=== PATIENT | male | born 1945 | race Caucasian/White ===

== ENCOUNTER → 2016-10-07 | Outpatient (CLI) | payer OTHER, MEDICARE ==
[2016-10-14 21:28] LABS: V-ZOSTER CULT ISOLATED
== END | disposition home or self-care (01) ==
LOC: C.LABSPEC 13:20
PROVIDERS: ATTEND Dermatology
DX: B02.9 Zoster without complications (principal)

== ENCOUNTER → 2017-01-20 | Outpatient (CLI) | payer OTHER, MEDICARE | END | disposition home or self-care (01) | LOC: C.PATHSPEC 16:47 | PROVIDERS: ATTEND Dermatology | DX: C44.319 Basal cell carcinoma of skin of other parts of face (principal); L82.1 Other seborrheic keratosis ==

== ENCOUNTER → 2017-02-02 | Outpatient (CLI) | payer OTHER, MEDICARE | END | disposition home or self-care (01) | LOC: C.PATHSPEC 11:13 | PROVIDERS: ATTEND Plastic Surgery | DX: C44.310 Basal cell carcinoma of skin of unspecified parts of face (principal) ==

== ENCOUNTER → 2017-03-26 | Outpatient (CLI) | payer OTHER, MEDICARE | END | disposition home or self-care (01) | LOC: C.LABSPEC 12:33 | PROVIDERS: ATTEND Dermatology | DX: A49.01 Methicillin susceptible Staphylococcus aureus infection, unspecified site (principal); L98.9 Disorder of the skin and subcutaneous tissue, unspecified ==

== ENCOUNTER → 2017-04-15 | Outpatient (CLI) | payer OTHER, MEDICARE ==
[2017-04-15 15:12] LABS: BLOOD UREA NITROGEN 21 mg/dl (7-18); BUN/CREATININE RATIO 22.7 (10-20); CARBON DIOXIDE 30 mmol/L (21-32); CHLORIDE 103 mmol/L (98-107); CREATININE 0.91 mg/dl (0.60-1.40); GLUCOSE 133 mg/dl (70-99); POTASSIUM 4.2 mmol/L (3.5-5.1); SODIUM 139 mmol/L (136-145)
== END | disposition home or self-care (01) ==
LOC: C.LAB1850 13:20
PROVIDERS: ATTEND Internal Medicine Endocrinology, Diabetes & Metabolism
DX: E11.9 Type 2 diabetes mellitus without complications (principal)

== ENCOUNTER → 2017-06-01 | Outpatient (CLI) | payer OTHER, MEDICARE ==
[2017-06-01 15:18] LABS: ALT/SGPT 47 U/L (12-78); BLOOD UREA NITROGEN 20 mg/dl (7-18); BUN/CREATININE RATIO 20.4 (10-20); CALCIUM 9.3 mg/dl (8.5-10.1); CARBON DIOXIDE 28 mmol/L (21-32); CHLORIDE 106 mmol/L (98-107); CHOLESTEROL 134 mg/dl (0-200); CREATININE 0.96 mg/dl (0.60-1.40); GLUCOSE 102 mg/dl (70-99); POTASSIUM 4.6 mmol/L (3.5-5.1); SODIUM 140 mmol/L (136-145); TRIGLYCERIDES 225 mg/dl (0-150); VERY LOW DENSITY LIPOPROT CALC 45 mg/dl
[2017-06-01 15:21] LABS: ALB/GLOB RATIO 1.3 (0.9-2); ALKALINE PHOSPHATASE 69 U/L (45-117); AST/SGOT 30 U/L (15-37); CHOLESTEROL/HDL RATIO 3.8; HDL CHOLESTEROL 35 mg/dl; LDL CHOLESTEROL CALCULATED 54 mg/dl
== END | disposition home or self-care (01) ==
LOC: C.LAB1850 13:03
PROVIDERS: ATTEND Internal Medicine Endocrinology, Diabetes & Metabolism
DX: E11.9 Type 2 diabetes mellitus without complications (principal); K76.0 Fatty (change of) liver, not elsewhere classified

== ENCOUNTER → 2017-07-06 | Outpatient (CLI) | payer OTHER, MEDICARE | END | disposition home or self-care (01) | LOC: C.PATHSPEC 17:37 | PROVIDERS: ATTEND Dermatology | DX: L82.1 Other seborrheic keratosis (principal) ==

== ENCOUNTER 2021-05-27 14:38 | Observation (INO) ==
[2021-05-27] MEDS ORDERED: SODIUM CHLORIDE 0.9% 500 ML IV STA (16:30)
[2021-05-27] MEDS ORDERED: ASPIRIN CHEW 324 MG PO STA (16:30)
--- NOTE | 2021-05-27 16:37 | Emergency Department Note ---
Impression & Plan Complete left bundle branch block (LBBB), SOB (shortness of breath), Abnormal EKG, Thrombocytopenia ED Provider Note NAME: NAHUM BONDS AGE: 76 SEX: M : 1945 ARRIVES VIA: Walk-In INFORMANT: Patient, ED PROVIDER(S): Anton Bailon DO CHIEF COMPLAINT: Shortness of breath HPI: The patient is a 76-year-old male who presented to the emergency department for shortness of breath. The patient has a history of CLL. He also has a history of COPD. He states that he has been having some shortness of breath recently. He thinks it may be more than what he has had before with his COPD. The patient has CLL and is currently being treated for this. He did have a minor reaction to his CLL medications recently. He did receive steroids. He thought he was doing better and even had another dose of the medication for CLL and did not have a reaction. He is unsure if this is related. He went to see his photography manager today for a follow-up appointment for his usual visit. At that time he had an EKG done in the office which was felt to be change compared to his previous. The patient is unsure what the changes are. He denies having any chest pain. He denies having any nausea or vomiting. He denies having any fevers or recent traveling. He denies having swelling in the legs. He was referred to the emergency department for evaluation and possible admission. ROS: See above HPI for pertinent positives & negatives. A total of 10 systems reviewed and were otherwise negative. PAST MEDICAL HISTORY: See Below PAST SURGICAL HISTORY: See Below FAMILY HISTORY: See Below SOCIAL HISTORY: See Below HOME MEDICATIONS: See Below ALLERGIES: See Below VITALS: See Below PHYSICAL EXAMINATION: GENERAL: Patient is awake alert in no acute distress patient is resting comfortably and showing no signs of anxiety EYES: The conjunctivae are clear. The pupils are round and reactive. EARS, NOSE, MOUTH AND THROAT: The nose is without any evidence of any deformity. NECK: The neck is nontender and supple. RESPIRATORY: Normal respiratory effort is noted there is no evidence of wheezing rhonchi or rales CARDIOVASCULAR: Regular rate and rhythm noted there no murmurs rubs or gallops normal S1 normal S2. GASTROINTESTINAL: The abdomen is soft. Abdomen is nontender. MUSCULOSKELETAL/EXTREMITIES: There is no evidence of gross deformity full range of motion is noted in the hips and shoulders. SKIN: There is no obvious evidence of any rash. There are no petechiae, pallor or cyanosis noted. NEUROLOGIC: Patient is awake alert and oriented x3. MEDICAL DECISION MAKING: The patient is a 76-year-old male who presented to the emergency department for an evaluation of shortness of breath with exertion. The patient was seen by his primary photography manager group today and was sent to the emergency department because of abnormal EKG. The patient was felt to be a good candidate for inpatient work-up and further evaluation of his bundle branch block. I discusse d the patient's laboratory and radiographic studies with him. He was treated with aspirin in the emergency department. I did discuss his case with the [facility] photography manager. They were aware that the patient was coming to the emergency department. I also discussed his case with the on-call [facility] group. They have agreed to evaluate the patient in the emergency department for further management and disposition. Triage Nursing notes reviewed. Prior medical records reviewed Vital Signs: reviewed and remarkable for tachycardia Differential diagnosis: Reactive airway disease, pneumonia, pneumothorax, COPD, CHF, infections, cardiac ischemia, pulmonary embolism, musculoskeletal, gastrointestinal, as well as other pathologies. ER treatment provided: See below Diagnostics interpreted by me: ECG: EKG was obtained in the emergency department. My interpretation is normal sinus rhythm at 72 bpm. Left bundle branch block pattern was noted. There were some concordant T waves noted in the low lateral leads. No previous tracing was available. Cardiac Monitoring: An order was placed for continuous cardiac monitoring. The monitor shows a rate of 124 bpm sinus tachycardia with rhythm. Laboratory studies: As stated above and show below. Imaging studies: See below Consultation(s): I discussed this case with Dr. Garcia who is on-call for the [facility] group. They will evaluate the patient in the emergency department. Past Med/Surg History Medical History (Updated 05/27/21 @ 22:53 by Anton Bailon DO) Adrenal nodule ASCVD (arteriosclerotic cardiovascular disease) Benign prostatic hyperplasia with urinary obstruction BPH with obstruction/lower urinary tract symptoms Chronic 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 CLL (chronic lymphocytic leukemia) Diabetes type 2, controlled Dyslipidemia Fatty liver Gastroparesis History of thyroid cancer Hypothyroidism, postablative Surgical History (Updated 05/27/21 @ 20:14 by NERY Aguilar) History of cataract surgery History of cholecystectomy History of thyroidectomy Hx of parathyroidectomy S/P AAA (abdominal aortic aneurysm) repair Family History Mother Diabetes Myocardial infarction Father Stroke Myocardial infarction Sister Alzheimer disease Breast cancer Denies family history of Ovarian cancer Prostate cancer Colorectal cancer Social History Smoking Status: Current some day smoker Tobacco Type: Cigarettes Age Started Using Tobacco: 16; Second Hand Exposure: No; Do You Dip or Chew Tobacco: No; Tobacco Cessation Education Requested by Patient: No Hx Alcohol Use: No Hx Substance Use: No Preferred Language: Yoruba Communication Ability: Effective Visual Impairment: Limited Hearing Ability: Normal Foil Spooler Required: No Beliefs That Will Affect Care: None marital status: Single Current Living Situation: Alone current occupational status: retired Other Information That Helps Us Care for You: Yes Feels Safe at Home: Yes Safety Concerns: Feels Safe At This Time Childhood Exposure to Second-Hand Smoke: Yes Dental Care, Regularly: Yes Physical Activity Frequency: Does not Exercise Seatbelt Use: always Sunscreen Use: Yes Assistive Devices: Cane, Denture - Upper and Glasses Allergies Allergies Allergy/AdvReac Type Severity Reaction Status Date / Time diphenhydramine Allergy Severe Hypotension,Sweating, Unverified 05/27/21 18:50 [From Benadryl] Shaking adhesive tape Allergy Unknown Unknown Verified 05/27/21 21:22 acetaminophen [From Tylenol] Allergy Unknown Unverified 05/27/21 18:50 clavulanic acid Allergy Unknown Unverified 05/27/21 18:50 [From Augmentin] desflurane Allergy Unknown Unverified 05/27/21 18:50 enflurane Allergy Unknown Unverified 05/27/21 18:50 ether Allergy Unknown Unverified 05/27/21 18:50 halothane Allergy Unknown Unverified 05/27/21 18:50 hydrocortisone Allergy Unknown Unverified 05/27/21 18:50 isoflurane Allergy Unknown Unverified 05/27/21 18:50 methoxyflurane Allergy Unknown Unverified 05/27/21 18:50 nickel Allergy Unknown Unverified 05/27/21 18:50 Penicillins Allergy Unknown Unverified 05/27/21 18:50 sevoflurane Allergy Unknown Unverified 05/27/21 18:50 succinylcholine Allergy Unknown Unverified 05/27/21 18:50 varenicline [From Chantix] Allergy Unknown Unverified 05/27/21 18:50 Home Meds Home Medications Medication Instructions Recorded Confirmed aspirin 81 mg tablet,delayed 81 mg PO DAILY tab 03/23/19 05/27/21 release blood sugar diagnostic (Prodigy No #10 ea 03/23/19 04/24/21 Coding) blood-glucose meter (Prodigy #1 ea 03/23/19 04/24/21 Autocode Monitor Syst) hydrocortisone valerate 0.2 % 1 appln TOP BID PRN 03/23/19 05/27/21 topical cream lancets 28 gauge (Observe Medical Lancets) #25 ea 03/23/19 04/24/21 pen needle, diabetic 32 gauge x #10 ea 03/23/19 04/24/21 5/32" (BD Ultra-Fine Elida Pen Needle) sildenafil 100 mg tablet (Viagra) 100 mg PO DAILY PRN #10 tab 03/23/19 05/27/21 miconazole nitrate 2 % topical 1 appln TOP DAILY PRN 04/15/19 05/27/21 powder (Zeasorb AF) adapalene 0.3 % topical gel 1 applic TOPICAL DAILY PRN gm 04/24/21 05/27/21 betamethasone, augmented 0.05 % 1 applic TOPICAL BID PRN #1 gm 04/24/21 05/27/21 topical ointment cyanocobalamin (vitamin B-12) 500 1,000 mcg SL DAILY tab 04/24/21 05/27/21 mcg disintegrating tablet,sublingual ezetimibe 10 mg tablet (Zetia) 10 mg PO DAILY tab 04/24/21 05/27/21 insulin degludec 100 unit/mL (3 25 unit SQ HS ml 04/24/21 05/27/21 mL) subcutaneous pen (Tresiba FlexTouch U-100 insulin) ketoconazole 2 % topical cream 1 applic TOPICAL BID PRN #1 gm 04/24/21 05/27/21 metoclopramide HCl 5 mg tablet 5 mg PO PM tab 04/24/21 05/27/21 mupirocin 2 % topical ointment 1 applic TOPICAL TID PRN #1 gm 04/24/21 05/27/21 nystatin-triamcinolone 100,000 1 applic TOPICAL BID PRN #1 gm 04/24/21 05/27/21 unit/gram-0.1 % topical ointment allopurinol 300 mg tablet 300 mg PO QAM 05/27/21 05/27/21 cholecalciferol (vitamin D3) 10 10 mcg PO QAM 05/27/21 05/27/21 mcg (400 unit) tablet (Vitamin D3) empagliflozin 10 mg tablet 10 mg PO QAM 05/27/21 05/27/21 (Jardiance) krill 500 mg-omega-3 150 mg-dha 45 1 cap PO QAM 05/27/21 05/27/21 mg-epa 75 [id number] capsule (krill oil) levothyroxine 112 mcg tablet 112 mcg PO HS 05/27/21 05/27/21 (Synthroid) lutein 20 mg tablet 20 mg PO QAM 05/27/21 05/27/21 metoprolol succinate 50 mg 50 mg PO QAM 05/27/21 05/27/21 tablet,extended release 24 hr (Toprol XL) milk thistle 500 mg capsule 1,000 mg PO QAM 05/27/21 05/27/21 omeprazole 20 mg capsule,delayed 20 mg PO QAM 05/27/21 05/27/21 release sulindac 200 mg tablet 100 mg PO UD 05/27/21 05/27/21 triamcinolone acetonide 0.025 % 1 applic TOPICAL DAILY PRN 05/27/21 05/27/21 topical cream Previous Rx's Medication Instructions Recorded clonazepam 0.5 mg tablet 0.5 mg PO TID PRN #60 tab 10/13/19 fluticasone propionate 50 2 sprays INTRANASAL DAILY #1 btl 10/13/19 mcg/actuation nasal spray,suspension FreeStyle Santa 2 Sensor (flash #2 ea NS 04/09/21 glucose sensor) oxycodone 30 mg tablet 30 mg PO Q4H PRN #180 tab 05/09/21 Results & Data (ED) Vital Signs Vital Signs - 24 hr 05/27/21 14:45 05/27/21 17:02 05/27/21 17:05 Temperature 36.8 C Temperature Source Temporal Artery Scan Pulse Rate 76 77 Pulse Rate [Apical] Pulse Rate from SpO2 Sensor Pulse Rhythm [Apical] Pulse Strength [Apical] Respiratory Rate 18 22 Respiratory Effort / Characteristics Non-Labored Spontaneous Respiratory Depth Normal Respiratory Pattern Blood Pressure 101/61 Blood Pressure [Right Arm] Blood Pressure Mean 74 Blood Pressure Mean [Right Arm] Blood Pressure Position Sitting Blood Pressure Position [Right Arm] Pulse Oximetry 95 Oxygen Delivery Method Room Air Room Air Room Air Sepsis Recent Fever Within 48 Hours No Sepsis New/Unexplained Change in Mental Status N/A Sepsis Action Taken by Nursing No Action Required 05/27/21 17:10 05/27/21 17:20 05/27/21 17:30 Temperature Temperature Source Pulse Rate 101 H 62 61 Pulse Rate [Apical] Pulse Rate from SpO2 Sensor 68 65 60 Pulse Rhythm [Apical] Pulse Strength [Apical] Respiratory Rate 29 H 17 19 Respiratory Effort / Characteristics Respiratory Depth Respiratory Pattern Blood Pressure Blood Pressure [Right Arm] Blood Pressure Mean Blood Pressure Mean [Right Arm] Blood Pressure Position Blood Pressure Position [Right Arm] Pulse Oximetry 94 95 95 Oxygen Delivery Method Room Air Room Air Room Air Sepsis Recent Fever Within 48 Hours Sepsis New/Unexplained Change in Mental Status Sepsis Action Taken by Nursing 05/27/21 17:40 05/27/21 17:50 05/27/21 18:00 Temperature Temperature Source Pulse Rate 62 127 H 130 H Pulse Rate [Apical] Pulse Rate from SpO2 Sensor 62 64 64 Pulse Rhythm [Apical] Pulse Strength [Apical] Respiratory Rate 22 19 19 Respiratory Effort / Characteristics Respiratory Depth Respiratory Pattern Blood Pressure Blood Pressure [Right Arm] Blood Pressure Mean Blood Pressure Mean [Right Arm] Blood Pressure Position Blood Pressure Position [Right Arm] Pulse Oximetry 94 94 95 Oxygen Delivery Method Room Air Room Air Room Air Sepsis Recent Fever Within 48 Hours Sepsis New/Unexplained Change in Mental Status Sepsis Action Taken by Nursing 05/27/21 18:10 05/27/21 18:20 05/27/21 18:30 Temperature Temperature Source Pulse Rate 72 63 82 Pulse Rate [Apical] Pulse Rate from SpO2 Sensor 67 63 Pulse Rhythm [Apical] Pulse Strength [Apical] Respiratory Rate 23 21 25 H Respiratory Effort / Characteristics Respiratory Depth Respiratory Pattern Blood Pressure Blood Pressure [Right Arm] Blood Pressure Mean Blood Pressure Mean [Right Arm] Blood Pressure Position Blood Pressure Position [Right Arm] Pulse Oximetry 91 94 Oxygen Delivery Method Room Air Room Air Room Air Sepsis Recent Fever Within 48 Hours Sepsis New/Unexplained Change in Mental Status Sepsis Action Taken by Nursing 05/27/21 18:40 05/27/21 18:50 05/27/21 19:00 Temperature Temperature Source Pulse Rate 63 62 95 H Pulse Rate [Apical] Pulse Rate from SpO2 Sensor 64 62 68 Pulse Rhythm [Apical] Pulse Strength [Apical] Respiratory Rate 18 21 22 Respiratory Effort / Characteristics Respiratory Depth Respiratory Pattern Blood Pressure Blood Pressure [Right Arm] Blood Pressure Mean Blood Pressure Mean [Right Arm] Blood Pressure Position Blood Pressure Position [Right Arm] Pulse Oximetry 96 95 95 Oxygen Delivery Method Room Air Room Air Room Air Sepsis Recent Fever Within 48 Hours Sepsis New/Unexplained Change in Mental Status Sepsis Action Taken by Nursing 05/27/21 19:31 05/27/21 19:46 05/27/21 20:00 Temperature 36.5 C Temperature Source Oral Pulse Rate 62 65 Pulse Rate [Apical] 72 Pulse Rate from SpO2 Sensor 61 65 Pulse Rhythm [Apical] Regular Pulse Strength [Apical] Normal Respiratory Rate 21 20 19 Respiratory Effort / Characteristics Non-Labored Spontaneous Respiratory Depth Normal Respiratory Pattern Regular Blood Pressure 129/68 124/68 Blood Pressure [Right Arm] 129/68 Blood Pressure Mean 88 86 Blood Pressure Mean [Right Arm] 88 Blood Pressure Position Blood Pressure Position [Right Arm] Lying Pulse Oximetry 95 95 95 Oxygen Delivery Method Room Air Room Air Room Air Sepsis Recent Fever Within 48 Hours Sepsis New/Unexplained Change in Mental Status Sepsis Action Taken by Nursing 05/27/21 20:30 05/27/21 21:00 05/27/21 21:34 Temperature Temperature Source Pulse Rate 121 H 124 H Pulse Rate [Apical] Pulse Rate from SpO2 Sensor 60 62 70 Pulse Rhythm [Apical] Pulse Strength [Apical] Respiratory Rate 21 22 Respiratory Effort / Characteristics Respiratory Depth Respiratory Pattern Blood Pressure 119/67 138/64 Blood Pressure [Right Arm] Blood Pressure Mean 84 88 Blood Pressure Mean [Right Arm] Blood Pressure Position Blood Pressure Position [Right Arm] Pulse Oximetry 95 95 95 Oxygen Delivery Method Room Air Room Air Room Air Sepsis Recent Fever Within 48 Hours Sepsis New/Unexplained Change in Mental Status Sepsis Action Taken by Nursing 05/27/21 21:41 05/27/21 21:50 05/27/21 22:00 Temperature Temperature Source Pulse Rate Pulse Rate [Apical] Pulse Rate from SpO2 Sensor 80 61 57 L Pulse Rhythm [Apical] Pulse Strength [Apical] Respiratory Rate Respiratory Effort / Characteristics Respiratory Depth Respiratory Pattern Blood Pressure Blood Pressure [Right Arm] Blood Pressure Mean Blood Pressure Mean [Right Arm] Blood Pressure Position Blood Pressure Position [Right Arm] Pulse Oximetry 96 95 Oxygen Delivery Method Room Air Room Air Room Air Sepsis Recent Fever Within 48 Hours Sepsis New/Unexplained Change in Mental Status Sepsis Action Taken by Nursing 05/27/21 22:10 05/27/21 22:20 Temperature Temperature Source Pulse Rate Pulse Rate [Apical] Pulse Rate from SpO2 Sensor 60 57 L Pulse Rhythm [Apical] Pulse Strength [Apical] Respiratory Rate Respiratory Effort / Characteristics Respiratory Depth Respiratory Pattern Blood Pressure Blood Pressure [Right Arm] Blood Pressure Mean Blood Pressure Mean [Right Arm] Blood Pressure Position Blood Pressure Position [Right Arm] Pulse Oximetry 94 94 Oxygen Delivery Method Room Air Room Air Sepsis Recent Fever Within 48 Hours Sepsis New/Unexplained Change in Mental Status Sepsis Action Taken by Retirement Medications Current Medication List: was personally reviewed by me Laboratory Data Attestation: I reviewed the patient's lab results. Result diagrams: 05/27/21 16:47 05/27/21 16:47 Lab Results 05/27/21 05/27/21 05/27/21 Range/Units 16:47 16:47 16:47 WBC 13.65 H (4.8-10.8) K/uL RBC 4.77 (4.7-6.1) M/uL Hgb 14.3 (14.0-18.0) g/dL Hct 42.2 (42-52) % MCV 88.5 (80-100) fL MCH 30.0 (25-34) pg MCHC 33.9 (32-36) g/dL RDW Std Deviation 50.2 H (36.4-46.3) fL RDW Coeff of Ct 15.5 H (11.5-14.5) % Plt Count 77 L (130-400) K/uL MPV 10.4 (7.4-10.4) fL Immature Gran % (Auto) 0.2 % Neut % (Auto) 62.4 % Lymph % (Auto) 31.3 % [place] % (Auto) 5.9 % Eos % (Auto) 0.1 % Baso % (Auto) 0.1 % Neut # (Auto) 8.52 H (1.4-6.5) K/uL Lymph # (Auto) 4.27 H (1.2-3.4) K/uL [place] # (Auto) 0.80 H (0.11-0.59) K/uL Eos # (Auto) 0.02 (0-0.5) K/uL Baso # (Auto) 0.01 (0-0.2) K/uL Immature Gran # (Auto) 0.03 H (0.00-0.02) K/uL Platelet Estimate Decreased L (Normal) PT 11.6 (9.0-12.0) Seconds INR 1.2 H (0.9-1.1) APTT 24.4 (21.0-31.0) Seconds PTT Ratio 0.9 Sodium 138 (136-145) mmol/L Potassium 4.6 (3.5-5.1) mmol/L Chloride 106 (98-107) mmol/L Carbon Dioxide 20 L (21-32) mmol/L Anion Gap 12.0 H (3-11) BUN 38 H (7-18) mg/dl Creatinine 1.19 (0.6-1.4) mg/dl Est Cr Clr Drug Dosing 51.2 ml/min Est GFR ( Amer) 67.4 ml/min Est GFR (Non-Af Amer) 58.2 ml/min BUN/Creatinine Ratio 32.3 H (10-20) Glucose 246 H (70-99) mg/dl Calcium 8.7 (8.5-10.1) mg/dl Total Bilirubin 0.4 (0.2-1) mg/dl AST 29 (15-37) U/L ALT 24 (12-78) U/L Alkaline Phosphatase 116 (45-117) U/L Troponin I < 0.015 (0-0.045) ng/ml Total Protein 6.8 (6.4-8.2) gm/dl Albumin 3.1 L (3.4-5.0) gm/dl Globulin 3.7 (2.5-4.0) gm/dl Albumin/Globulin Ratio 0.8 L (0.9-2) Lipase 55 L (73-393) U/L Specimen Hemolysis COVID-19 Eval Order SARS-CoV-2 (PCR) (Negative) 05/27/21 05/27/21 Range/Units 17:05 17:05 WBC (4.8-10.8) K/uL RBC (4.7-6.1) M/uL Hgb (14.0-18.0) g/dL Hct (42-52) % MCV (80-100) fL MCH (25-34) pg MCHC (32-36) g/dL RDW Std Deviation (36.4-46.3) fL RDW Coeff of Ct (11.5-14.5) % Plt Count (130-400) K/uL MPV (7.4-10.4) fL Immature Gran % (Auto) % Neut % (Auto) % Lymph % (Auto) % [place] % (Auto) % Eos % (Auto) % Baso % (Auto) % Neut # (Auto) (1.4-6.5) K/uL Lymph # (Auto) (1.2-3.4) K/uL [place] # (Auto) (0.11-0.59) K/uL Eos # (Auto) (0-0.5) K/uL Baso # (Auto) (0-0.2) K/uL Immature Gran # (Auto) (0.00-0.02) K/uL Platelet Estimate (Normal) PT (9.0-12.0) Seconds INR (0.9-1.1) APTT (21.0-31.0) Seconds PTT Ratio Sodium (136-145) mmol/L Potassium (3.5-5.1) mmol/L Chloride (98-107) mmol/L Carbon Dioxide (21-32) mmol/L Anion Gap (3-11) BUN (7-18) mg/dl Creatinine (0.6-1.4) mg/dl Est Cr Clr Drug Dosing ml/min Est GFR ( Amer) ml/min Est GFR (Non-Af Amer) ml/min BUN/Creatinine Ratio (10-20) Glucose (70-99) mg/dl Calcium (8.5-10.1) mg/dl Total Bilirubin (0.2-1) mg/dl AST (15-37) U/L ALT (12-78) U/L Alkaline Phosphatase (45-117) U/L Troponin I (0-0.045) ng/ml Total Protein (6.4-8.2) gm/dl Albumin (3.4-5.0) gm/dl Globulin (2.5-4.0) gm/dl Albumin/Globulin Ratio (0.9-2) Lipase (73-393) U/L Specimen Hemolysis COVID-19 Eval Order Covid19 at [facility] SARS-CoV-2 (PCR) NEGATIVE (Negative) Administered Medications Discontinued Medications Aspirin (Aspirin Chew 324 Mg) 324 mg PO NOW STA Stop: 05/27/21 16:31 Last Admin: 05/27/21 16:58 Dose: 324 mg Documented by: [id number] Sodium Chloride (Nss) 500 mls @ 999 mls/hr IV .Q31M STA Stop: 05/27/21 17:00 Last Infusion: 05/27/21 17:31 Dose: 0 mls/hr Documented by: [id number] Admin: 05/27/21 16:59 Dose: 999 mls/hr Documented by: [id number] Imaging Data Radiologist's Impression: Chest X-Ray 05/27/21 16:30 XR chest 1V portable INDICATION: Atypical chest pain. TECHNIQUE: Single frontal radiograph of the chest was obtained. Comparison: None available at the time of this dictation. FINDINGS: No lines and tubes are seen. The cardiomediastinal silhouette is normal. There is elevation of the right hemidiaphragm with atelectasis is seen. Possible layering right pleural effusion. No left pleural effusion or pneumothorax. IMPRESSION: Possible layering right pleural effusion. Otherwise no acute abnormality. ACT 112: Negative or not required by law. Electronically signed by: Jerzy Girard M.D. 05/27/2021 4:56 PM Discharge Plan Visit Data Chief Complaint: Cardiac Assessment Stated Complaint: SOB,REF BY DR ZHAO ED Provider: Anton Bailon Discharge Problem: Complete left bundle branch block (LBBB), SOB (shortness of breath), Abnormal EKG, Thrombocytopenia Patient Disposition: Admitted As Inpatient Forms Stand Alone Forms: [facility] [employer] Prescriptions Prescriptions: No Action (DME) FreeStyle Santa 2 Sensor Kit See Rx Instructions miscellaneous .MEDSUPPLY Qty: 2 RF: 11 oxycodone 30 mg tablet 30 mg PO Q4H PRN (Reason: pain) Qty: 180 RF: 0 aspirin 81 mg tablet,delayed release (DR/EC) 81 mg PO DAILY RF: 0 sildenafil [Viagra] 100 mg tablet 100 mg PO DAILY PRN (Reason: Erectile Dysfunction) Qty: 10 RF: 0 adapalene 0.3 % gel 1 applic topical DAILY PRN (Reason: .) RF: 0 betamethasone, augmented 0.05 % ointment 1 applic topical BID PRN (Reason: .) Qty: 1 RF: 0 cyanocobalamin (vitamin B-12) 500 mcg tablet,disintegrating 1,000 mcg SL DAILY RF: 0 ketoconazole 2 % cream 1 applic topical BID PRN (Reason: .) Qty: 1 RF: 0 metoclopramide HCl 5 mg tablet 5 mg PO PM RF: 0 mupirocin 2 % ointment 1 applic topical TID PRN (Reason: .) Qty: 1 RF: 0 nystatin-triamcinolone 100,000-0.1 unit/gram-% ointment 1 applic topical BID PRN (Reason: .) Qty: 1 RF: 0 (DME) blood-glucose meter [Observe Medical Autocode Monitor Syst] misc See Dose Instructions .ROUTE .MEDSUPPLY Qty: 1 RF: 0 (DME) lancets [Observe Medical Lancets] 28 gauge misc See Dose Instructions .ROUTE .MEDSUPPLY Qty: 25 RF: 0 (DME) Prodigy No Coding strip See Dose Instructions .ROUTE .MEDSUPPLY Qty: 10 RF: 0 (DME) pen needle, diabetic [BD Ultra-Fine Elida Pen Needle] 32 gauge x 5/32" needle See Dose Instructions .ROUTE .MEDSUPPLY Qty: 10 RF: 0 hydrocortisone valerate 0.2 % cream 1 appln TOP BID PRN (Reason: .) RF: 0 Zeasorb AF 2 % powder 1 appln TOP DAILY PRN (Reason: INGUINAL FOLDS) RF: 0 Tresiba FlexTouch U-100 100 unit/mL (3 mL) insulin pen 25 unit SQ HS RF: 0 fluticasone propionate 50 mcg/actuation spray,suspension 2 sprays intranasal DAILY Qty: 1 RF: 11 clonazepam 0.5 mg tablet 0.5 mg PO TID PRN (Reason: anxiety) Qty: 60 RF: 0 ezetimibe [Zetia] 10 mg tablet 10 mg PO DAILY RF: 0 metoprolol succinate [Toprol XL] 50 mg tablet extended release 24 hr 50 mg PO QAM RF: 0 milk thistle 500 mg Capsule 1,000 mg PO QAM RF: 0 allopurinol 300 mg tablet 300 mg PO QAM RF: 0 krill oil [id number] mg Capsule 1 cap PO QAM RF: 0 Jardiance 10 mg tablet 10 mg PO QAM RF: 0 triamcinolone acetonide 0.025 % Cream 1 applic TOPICAL DAILY PRN (Reason: .) RF: 0 omeprazole 20 mg capsule,delayed release(DR/EC) 20 mg PO QAM RF: 0 cholecalciferol (vitamin D3) [Vitamin D3] 10 mcg (400 unit) Tablet 10 mcg PO QAM RF: 0 sulindac 200 mg Tablet 100 mg PO UD RF: 0 lutein 20 mg Tablet 20 mg PO QAM RF: 0 levothyroxine [Synthroid] 112 mcg tablet 112 mcg PO HS RF: 0 Referrals Referrals: Dione Steve MD [Primary Care Provider] -
--- NOTE | 2021-05-27 16:58 | XRay Report ---
XR chest 1V portable INDICATION: Atypical chest pain. TECHNIQUE: Single frontal radiograph of the chest was obtained. Comparison: None available at the time of this dictation. FINDINGS: No lines and tubes are seen. The cardiomediastinal silhouette is normal. There is elevation of the ri ght hemidiaphragm with atelectasis is seen. Possible layering right pleural effusion. No left pleural effusion or pneumothorax. IMPRESSION: Possible layering right pleural effusion. Otherwise no acute abnormality. ACT 112: Negative or not required by law. Electronically signed by: Jerzy Girard M.D. 05/27/2021 4:56 PM
[2021-05-27 17:15] LABS: INR 1.2 (0.9-1.1); Partial Thromboplastin Ratio 0.9; Partial Thromboplastin Time 24.4 Seconds (21.0-31.0); Prothrombin Time 11.6 Seconds (9.0-12.0)
[2021-05-27 17:23] LABS: Alanine Aminotransferase 24 U/L (12-78); Albumin Level 3.1 gm/dl (3.4-5.0); Aspartate Aminotransferase 29 U/L (15-37); BUN Creatinine Ratio 32.3 (10-20); Blood Urea Nitrogen 38 mg/dl (7-18); Calcium 8.7 mg/dl (8.5-10.1); Carbon Dioxide 20 mmol/L (21-32); Chloride 106 mmol/L (98-107); Creatinine Clr Calc Pharmacy 51.2 ml/min; Est GFR (African American) 67.4 ml/min; Est GFR (Non-African American) 58.2 ml/min; Glucose 246 mg/dl (70-99); Lipase 55 U/L (73-393); Potassium 4.6 mmol/L (3.5-5.1); Sodium 138 mmol/L (136-145)
[2021-05-27 17:24] LABS: Hematocrit (blood only) 42.2 % (42-52); Hemoglobin 14.3 g/dL (14.0-18.0); Mean Corpuscular Hgb Conc 33.9 g/dL (32-36); Mean Corpuscular Volume 88.5 fL (80-100); Mean Platelet Volume 10.4 fL (7.4-10.4); Platelet Count 77 K/uL (130-400); RDW Coefficient of Variation 15.5 % (11.5-14.5); RDW Standard Deviation 50.2 fL (36.4-46.3); Red Blood Count 4.77 M/uL (4.7-6.1); White Blood Count 13.65 K/uL (4.8-10.8)
[2021-05-27 17:25] LABS: Basophils # (auto) 0.01 K/uL (0-0.2); Basophils % (auto) 0.1 %; Eosinophils # (auto) 0.02 K/uL (0-0.5); Eosinophils % (auto) 0.1 %; Immature Granulocytes # (auto) 0.03 K/uL (0.00-0.02); Immature Granulocytes % (auto) 0.2 %; Lymphocytes # (auto) 4.27 K/uL (1.2-3.4); Lymphocytes % (auto) 31.3 %; Monocytes % (auto) 5.9 %; Neutrophils # (auto) 8.52 K/uL (1.4-6.5); Neutrophils % (auto) 62.4 %; Platelet Estimate Decreased (Normal)
[2021-05-27 17:29] LABS: Albumin Globulin Ratio 0.8 (0.9-2); Alkaline Phosphatase 116 U/L (45-117); Bilirubin,Total 0.4 mg/dl (0.2-1); Globulin 3.7 gm/dl (2.5-4.0); Total Protein 6.8 gm/dl (6.4-8.2); Troponin I < 0.015 ng/ml (0-0.045)
--- NOTE | 2021-05-27 19:58 | History & Physical Report ---
Date of Service May 27, 2021 Assessment & Plan (1) LBBB (left bundle branch block): Plan: Reportedly new onset from cardiology office- follows with [facility] - Troponin I negative x1- trend - ECG here shows LBBB - ECHO in morning to evaluate for RWMA (2) CLL (chronic lymphocytic leukemia): Plan: CLL B type- on Gazyva - Recently started - Norbertomelanie diagnosed in 2018 - Electrolytes normal following treatment - Noted platelet count of 77- follow with VTE prophylaxis of Lovenox - consistent with Gazyva therapy (3) Diabetes type 2, controlled: Plan: Hold oral agents - Continue basal insulin equivalent of Tresiba 25 units at night - sliding scale aspart insulin during inpatient stay - CF 20; 0 carb coverage goal <180 (4) BPH with obstruction/lower urinary tract symptoms: Plan: chronic declined therapy secondary to 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 (5) Dyslipidemia: Plan: intolerance to rosuvastatin noted - continue Zetia - continue Krill oil as outpatient- hold in house (6) Current smoker: Plan: 1-2 cigaretts per week or less - Continues to try to abstain (7) Lumbar degenerative disc disease: Plan: Chronic - continue tyelnol - Oxycodone 30 mg q4 hr prn (8) Malignant hyperthermia susceptibility: Plan: Genetic tested risk - noted in allergies as well (9) History of thyroidectomy: Plan: Follows with endocrine - Continue Synthroid History of Present Illness Primary Care Provider: Dione Steve MD 76 YOM with past medical history of: CLL of B-cell type(Gazyva) originally diagnosed in 2018 with return of lymphadenopathy return in January, has just started Gazyva again 1 cycle, DM2, HLD, CAD, Gastroparesis, Tyroid Cancer- with thyroidectomy, Hyperparathyroidism, AAA repair, HTN, current smoker. 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 The patient denies any chest pain or increase in shortness of breath, n/v, activity intolerance. In the EMD the patient had routine blood work performed to include Troponin I, CXR, ECG done. His troponin I was negative and ECG does reveal LBBB. As above the patient denies any acute symptoms- he does endorse that he recently started Gazyva treatment for his CLL. His first treatment was on Wednesday and the treatment was cut short. The patient recalls that he got a dose of Benadryl which made him dizzy, lightheaded and very diaphoretic and recalls that he thinks his blood pressure dropped dramatically- he then endorses that he got a dose of steroids and felt his HR increasing and had rigors and shaking. He reports a dose reduction today, which he did not have any complications he reports. The patient has baseline dyspnea and wheezing from smoking history, he continues to smoke 1-2 cigarettes a week or less. 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 He does have risk factors of smoking, HTN, HLD, DM. Patient will be observed overnight on telemetry continue to trend Troponin I and ECGs, will obtain ECHO in the morning to evaluate for any wall motion abnormalities or changes. The patient has received his COVID vaccine and Booster: His COVID test on admission is: NEGATIVE Allergies Allergy/AdvReac Type Severity Reaction Status Date / Time diphenhydramine Allergy Severe Hypotension,Sweating, Unverified 05/27/21 18:50 [From Benadryl] Shaking adhesive tape Allergy Unknown Unknown Verified 05/27/21 21:22 acetaminophen [From Tylenol] Allergy Unknown Unverified 05/27/21 18:50 clavulanic acid Allergy Unknown Unverified 05/27/21 18:50 [From Augmentin] desflurane Allergy Unknown Unverified 05/27/21 18:50 enflurane Allergy Unknown Unverified 05/27/21 18:50 ether Allergy Unknown Unverified 05/27/21 18:50 halothane Allergy Unknown Unverified 05/27/21 18:50 hydrocortisone Allergy Unknown Unverified 05/27/21 18:50 isoflurane Allergy Unknown Unverified 05/27/21 18:50 methoxyflurane Allergy Unknown Unverified 05/27/21 18:50 nickel Allergy Unknown Unverified 05/27/21 18:50 Penicillins Allergy Unknown Unverified 05/27/21 18:50 sevoflurane Allergy Unknown Unverified 05/27/21 18:50 succinylcholine Allergy Unknown Unverified 05/27/21 18:50 varenicline [From Chantix] Allergy Unknown Unverified 05/27/21 18:50 Home Medications Medication Instructions Recorded Confirmed Type aspirin 81 mg tablet,delayed 81 mg PO DAILY tab 03/23/19 05/27/21 History release blood sugar diagnostic ([employer]dig[employer] No #10 ea 03/23/19 04/24/21 History Coding) blood-glucose meter (Prodigy #1 ea 03/23/19 04/24/21 History Autocode Monitor Syst) hydrocortisone valerate 0.2 % 1 appln TOP BID PRN 03/23/19 05/27/21 History topical cream lancets 28 gauge (Prodigy Lancets) #25 ea 03/23/19 04/24/21 History pen needle, diabetic 32 gauge x #10 ea 03/23/19 04/24/21 History 5/32" (BD Ultra-Fine Elida Pen Needle) sildenafil 100 mg tablet (Viagra) 100 mg PO DAILY PRN #10 tab 03/23/19 05/27/21 History miconazole nitrate 2 % topical 1 appln TOP DAILY PRN 04/15/19 05/27/21 History powder (Zeasorb AF) clonazepam 0.5 mg tablet 0.5 mg PO TID PRN #60 tab 10/13/19 05/27/21 Rx fluticasone propionate 50 2 sprays INTRANASAL DAILY #1 btl 10/13/19 05/27/21 Rx mcg/actuation nasal spray,suspension FreeStyle Santa 2 Sensor (flash #2 ea NS 04/09/21 04/24/21 Rx glucose sensor) adapalene 0.3 % topical gel 1 applic TOPICAL DAILY PRN gm 04/24/21 05/27/21 History betamethasone, augmented 0.05 % 1 applic TOPICAL BID PRN #1 gm 04/24/21 05/27/21 History topical ointment cyanocobalamin (vitamin B-12) 500 1,000 mcg SL DAILY tab 04/24/21 05/27/21 History mcg disintegrating tablet,sublingual ezetimibe 10 mg tablet (Zetia) 10 mg PO DAILY tab 04/24/21 05/27/21 History insulin degludec 100 unit/mL (3 25 unit SQ HS ml 04/24/21 05/27/21 History mL) subcutaneous pen (Tresiba FlexTouch U-100 insulin) ketoconazole 2 % topical cream 1 applic TOPICAL BID PRN #1 gm 04/24/21 05/27/21 History metoclopramide HCl 5 mg tablet 5 mg PO PM tab 04/24/21 05/27/21 History mupirocin 2 % topical ointment 1 applic TOPICAL TID PRN #1 gm 04/24/21 05/27/21 History nystatin-triamcinolone 100,000 1 applic TOPICAL BID PRN #1 gm 04/24/21 05/27/21 History unit/gram-0.1 % topical ointment oxycodone 30 mg tablet 30 mg PO Q4H PRN #180 tab 05/09/21 05/27/21 Rx allopurinol 300 mg tablet 300 mg PO QAM 05/27/21 05/27/21 History cholecalciferol (vitamin D3) 10 10 mcg PO QAM 05/27/21 05/27/21 History mcg (400 unit) tablet (Vitamin D3) empagliflozin 10 mg tablet 10 mg PO QAM 05/27/21 05/27/21 History (Jardiance) krill 500 mg-omega-3 150 mg-dha 45 1 cap PO QAM 05/27/21 05/27/21 History mg-epa 75 [id number]-upwwjwl-kddrw capsule (krill oil) levothyroxine 112 mcg tablet 112 mcg PO HS 05/27/21 05/27/21 History (Synthroid) lutein 20 mg tablet 20 mg PO QAM 05/27/21 05/27/21 History metoprolol succinate 50 mg 50 mg PO QAM 05/27/21 05/27/21 History tablet,extended release 24 hr (Toprol XL) milk thistle 500 mg capsule 1,000 mg PO QAM 05/27/21 05/27/21 History omeprazole 20 mg capsule,delayed 20 mg PO QAM 05/27/21 05/27/21 History release sulindac 200 mg tablet 100 mg PO UD 05/27/21 05/27/21 History triamcinolone acetonide 0.025 % 1 applic TOPICAL DAILY PRN 05/27/21 05/27/21 History topical cream Past Med/Surg History Medical History (Updated 05/27/21 @ 22:53 by Anton Bailon DO) Adrenal nodule ASCVD (arteriosclerotic cardiovascular disease) Benign prostatic hyperplasia with urinary obstruction BPH with obstruction/lower urinary tract symptoms Chronic 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 CLL (chronic lymphocytic leukemia) Diabetes type 2, controlled Dyslipidemia Fatty liver Gastroparesis History of thyroid cancer Hypothyroidism, postablative Surgical History (Updated 05/27/21 @ 20:14 by NERY Aguilar) History of cataract surgery History of cholecystectomy History of thyroidectomy Hx of parathyroidectomy S/P AAA (abdominal aortic aneurysm) repair Family History Mother Diabetes Myocardial infarction Father Stroke Myocardial infarction Sister Alzheimer disease Breast cancer Denies family history of Ovarian cancer Prostate cancer Colorectal cancer Social History Smoking Status: Current some day smoker Tobacco Type: Cigarettes Age Started Using Tobacco: 16; Second Hand Exposure: No; Do You Dip or Chew Tobacco: No; Tobacco Cessation Education Requested by Patient: No Hx Alcohol Use: No Hx Substance Use: No Preferred Language: Slovenian Communication Ability: Effective Visual Impairment: Limited Hearing Ability: Normal General Studies Program Chair Required: No Beliefs That Will Affect Care: None marital status: Single Current Living Situation: Alone current occupational status: retired Other Information That Helps Us Care for You: Yes Feels Safe at Home: Yes Safety Concerns: Feels Safe At This Time Childhood Exposure to Second-Hand Smoke: Yes Dental Care, Regularly: Yes Physical Activity Frequency: Does not Exercise Seatbelt Use: always Sunscreen Use: Yes Assistive Devices: Cane, Denture - Upper and Glasses Review of Systems Review of Systems: REVIEW OF SYSTEMS: Constitutional: No fever, sweats or chills Eyes: No diplopia, no worsening or blurred vision ENT: normal hearing, no trouble swallowing Respiratory: (+) dyspnea at baseline- no worsening, cough, NO sputum, Cardiovascular: No chest pain, tightness or palpitations Abdomen: No pain, nausea, vomiting, diarrhea or constipation Musculoskeletal: (+) chronic joint pain, calf pain, swelling Neurologic: No weakness, numbness/tingling, or balance problems Psychiatric: No anxiety or depression Skin: (+) irritation and itching Physical Exam Physical Exam: PHYSICAL EXAM: General: awake, alert, no apparent distress Head: Normocephalic, atraumatic ENT: PERRLA, EOMI, no pharyngeal exudate, mucous membranes moist Neuro: AAO x 3, speech clear and appropriate, strength intact bilaterally 5/5, sensation intact and equal all extremities and dermatomes, no pronator drift Chest: equal rise and fall of the chest, no accessory muscle use, inspiratory expiratory wheeze, on room air Cardiac: Regular rate and rhythm, telemetry reviewed-NSR , skin warm dry, cap refill <3 seconds, peripheral pulses +2 no JVD, no murmur, GI: NABS x 4 quadrants, soft, nontender to palpation, no rebound, guarding or tenderness : Spontaneously voiding, no pain, no CVA tenderness, Extremities: Normal inspection, no peripheral edema or erythema, calfs nontender to palpation Psych: Normal mood and affect Results & Data Results & Data ([facility]) Vital Signs (Past 12 Hours) Vital Signs Temp Pulse Resp BP Pulse Ox 05/27/21 18:30 82 25 H 05/27/21 18:20 63 21 94 05/27/21 18:10 72 23 91 05/27/21 18:00 130 H 19 95 05/27/21 17:50 127 H 19 94 05/27/21 17:40 62 22 94 05/27/21 17:30 61 19 95 05/27/21 17:20 62 17 95 05/27/21 17:10 101 H 29 H 94 05/27/21 17:05 77 22 05/27/21 14:45 36.8 C 76 18 101/61 95 Laboratory Results Abnormal lab results 05/27/21 05/27/21 05/27/21 Range/Units 16:47 16:47 16:47 WBC 13.65 H (4.8-10.8) K/uL RDW Std Deviation 50.2 H (36.4-46.3) fL RDW Coeff of Ct 15.5 H (11.5-14.5) % Plt Count 77 L (130-400) K/uL Neut # (Auto) 8.52 H (1.4-6.5) K/uL Lymph # (Auto) 4.27 H (1.2-3.4) K/uL Harper # (Auto) 0.80 H (0.11-0.59) K/uL Immature Gran # (Auto) 0.03 H (0.00-0.02) K/uL Platelet Estimate Decreased L (Normal) INR 1.2 H (0.9-1.1) Carbon Dioxide 20 L (21-32) mmol/L Anion Gap 12.0 H (3-11) BUN 38 H (7-18) mg/dl BUN/Creatinine Ratio 32.3 H (10-20) Glucose 246 H (70-99) mg/dl Albumin 3.1 L (3.4-5.0) gm/dl Albumin/Globulin Ratio 0.8 L (0.9-2) Lipase 55 L (73-393) U/L Diagnostic Findings Chest X-Ray 05/27/21 16:30 XR chest 1V portable INDICATION: Atypical chest pain. TECHNIQUE: Single frontal radiograph of the chest was obtained. Comparison: None available at the time of this dictation. FINDINGS: No lines and tubes are seen. The cardiomediastinal silhouette is normal. There is elevation of the right hemidiaphragm with atelectasis is seen. Possible layering right pleural effusion. No left pleural effusion or pneumothorax. IMPRESSION: Possible layering right pleural effusion. Otherwise no acute abnormality. ACT 112: Negative or not required by law. Electronically signed by: Jerzy Girard M.D. 05/27/2021 4:56 PM Medications Administered Discontinued Medications Aspirin (Aspirin Chew 324 Mg) 324 mg PO NOW STA Stop: 05/27/21 16:31 Last Admin: 05/27/21 16:58 Dose: 324 mg Documented by: [id number] Sodium Chloride (Nss) 500 mls @ 999 mls/hr IV .Q31M STA Stop: 05/27/21 17:00 Last Infusion: 05/27/21 17:31 Dose: 0 mls/hr Documented by: [id number] Admin: 05/27/21 16:59 Dose: 999 mls/hr Documented by: [id number] Home Medications aspirin 81 mg tablet,delayed release 81 mg PO DAILY tab 03/23/19 [History Confirmed 05/27/21] blood sugar diagnostic ([employer] No Coding) #10 ea 03/23/19 [History Confirmed 04/24/21] blood-glucose meter ([employer] Autocode Monitor Syst) #1 ea 03/23/19 [History Confirmed 04/24/21] hydrocortisone valerate 0.2 % topical cream 1 appln TOP BID PRN 03/23/19 [History Confirmed 05/27/21] lancets 28 gauge ([employer] Lancets) #25 ea 03/23/19 [History Confirmed 04/24/21] pen needle, diabetic 32 gauge x 5/32" (BD Ultra-Fine Elida Pen Needle) #10 ea 03/23/19 [History Confirmed 04/24/21] sildenafil 100 mg tablet (Viagra) 100 mg PO DAILY PRN #10 tab 03/23/19 [History Confirmed 05/27/21] miconazole nitrate 2 % topical powder (Zeasorb AF) 1 appln TOP DAILY PRN 04/15/19 [History Confirmed 05/27/21] clonazepam 0.5 mg tablet 0.5 mg PO TID PRN #60 tab 10/13/19 [Rx Confirmed 05/27/21] fluticasone propionate 50 mcg/actuation nasal spray,suspension 2 sprays INTRANASAL DAILY #1 btl 10/13/19 [Rx Confirmed 05/27/21] FreeStyle Santa 2 Sensor (flash glucose sensor) #2 ea NS 04/09/21 [Rx Confirmed 04/24/21] adapalene 0.3 % topical gel 1 applic TOPICAL DAILY PRN gm 04/24/21 [History Confirmed 05/27/21] betamethasone, augmented 0.05 % topical ointment 1 applic TOPICAL BID PRN #1 gm 04/24/21 [History Confirmed 05/27/21] cyanocobalamin (vitamin B-12) 500 mcg disintegrating tablet,sublingual 1,000 mcg SL DAILY tab 04/24/21 [History Confirmed 05/27/21] ezetimibe 10 mg tablet (Zetia) 10 mg PO DAILY tab 04/24/21 [History Confirmed 05/27/21] insulin degludec 100 unit/mL (3 mL) subcutaneous pen (Tresiba FlexTouch U-100 insulin) 25 unit SQ HS ml 04/24/21 [History Confirmed 05/27/21] ketoconazole 2 % topical cream 1 applic TOPICAL BID PRN #1 gm 04/24/21 [History Confirmed 05/27/21] metoclopramide HCl 5 mg tablet 5 mg PO PM tab 04/24/21 [History Confirmed 05/27/21] mupirocin 2 % topical ointment 1 applic TOPICAL TID PRN #1 gm 04/24/21 [History Confirmed 05/27/21] nystatin-triamcinolone 100,000 unit/gram-0.1 % topical ointment 1 applic TOPICAL BID PRN #1 gm 04/24/21 [History Confirmed 05/27/21] oxycodone 30 mg tablet 30 mg PO Q4H PRN #180 tab 05/09/21 [Rx Confirmed 05/27/21] allopurinol 300 mg tablet 300 mg PO QAM 05/27/21 [History Confirmed 05/27/21] cholecalciferol (vitamin D3) 10 mcg (400 unit) tablet (Vitamin D3) 10 mcg PO QAM 05/27/21 [History Confirmed 05/27/21] empagliflozin 10 mg tablet (Jardiance) 10 mg PO QAM 05/27/21 [History Confirmed 05/27/21] krill 500 mg-omega-3 150 mg-dha 45 mg-epa 75 [id number] capsule (krill oil) 1 cap PO QAM 05/27/21 [History Confirmed 05/27/21] levothyroxine 112 mcg tablet (Synthroid) 112 mcg PO HS 05/27/21 [History Confirmed 05/27/21] lutein 20 mg tablet 20 mg PO QAM 05/27/21 [History Confirmed 05/27/21] metoprolol succinate 50 mg tablet,extended release 24 hr (Toprol XL) 50 mg PO QAM 05/27/21 [History Confirmed 05/27/21] milk thistle 500 mg capsule 1,000 mg PO QAM 05/27/21 [History Confirmed 05/27/21] omeprazole 20 mg capsule,delayed release 20 mg PO QAM 05/27/21 [History Confirmed 05/27/21] sulindac 200 mg tablet 100 mg PO UD 05/27/21 [History Confirmed 05/27/21] triamcinolone acetonide 0.025 % topical cream 1 applic TOPICAL DAILY PRN 05/27/21 [History Confirmed 05/27/21] ECG Additional Comments: Normal sinus rhythm Left bundle branch block Abnormal ECG No previous ECGs available Code Status & VTE Plan Code Status CODE: FULL VTE: SCDs, Lovenox 40mg Daily VTE Prophylaxis Plan VTE Prophylaxis will be ordered: Yes Supervising Physician Co-Signing Physician Notes Patient seen and examined, chart reviewed, case discussed with NERY Grande and I agree with the assessment and plan as documented above. Briefly, patient is a76yo male presenting from Cardiology offices with new LBBB noted on EKG. Presently denies chest pain or SOB Had recent reaction to CLL treatment Gazyva which he reports resulted in prolonged episode of low blood pressure, SOB and diaphoresis. He was treated with Benadryl and steroids Exam unremarkable Labs and images reviewed Troponin is negative EKG with LBBB, appropriate concordance, no prior studies available for comparison WBC=13.65 in setting of CLL Plt=77 Assessment/Plan - telemetry monitoring, trend troponin, echo in AM remainder of plan as above PG Care Time/CCT Total # of Minutes Spent Total Time Spent with Patient: Total time spent is greater than 50% in coordination of care (as documented) at patient's floor/unit and/or counseling patient: Coding Level of Care Code INT OBSERVATION CARE 70M LVL 3 Diagnoses LBBB (left bundle branch block) I44.7 Diabetes type 2, controlled E11.9 BPH with obstruction/lower urinary tract symptoms N40.1; N13.8 CLL (chronic lymphocytic leukemia) C91.90 Dyslipidemia E78.5 Current smoker F17.200 Lumbar degenerative disc disease M51.36 Malignant hyperthermia susceptibility Z15.89 History of thyroidectomy Z90.09
[2021-05-28] MEDS ORDERED: GLUCOSE 40% GEL 15 GM TUBE PO PRN (02:52)
[2021-05-28] MEDS ORDERED: METOCLOPRAMIDE HCL 5 MG TABLET PO SCH (02:52)
[2021-05-28] MEDS ORDERED: CARBOHYDRATES FOR HYPOGLYCEMIA PO PRN (02:52)
[2021-05-28] MEDS ORDERED: DEXTROSE 50% 50 ML SYRINGE IV PRN (02:52)
[2021-05-28] MEDS ORDERED: ONDANSETRON INJ 2 MG/ML 2 ML VIAL IV PRN (02:52)
[2021-05-28] MEDS ORDERED: LEVOTHYROXINE SODIUM 112 MCG TABLET PO SCH (02:52)
[2021-05-28] MEDS ORDERED: clonazePAM 0.5 MG TAB PO PRN (02:52)
[2021-05-28] MEDS ORDERED: POLYETHYLENE (MIRALAX) 17 GM PACK PO PRN (02:52)
[2021-05-28] MEDS ORDERED: oxyCODONE HCL IR 30 MG TAB (IMMEDIATE RELEASE) PO PRN (02:52)
[2021-05-28] MEDS ORDERED: ACETAMINOPHEN 325 MG TAB PO PRN (02:52)
[2021-05-28] MEDS ORDERED: TRIAMCINOLONE ACET 0.025% CR 15 GM TUBE TOP PRN (02:52)
[2021-05-28] MEDS ORDERED: GLUCAGON FOR INJ 1 MG VIAL SQ PRN (02:52)
[2021-05-28] MEDS ORDERED: MICONAZOLE NITRATE POWDER 43 GM TOP PRN (02:52)
[2021-05-28] MEDS ORDERED: GLUCOSE 10 TABS/TUBE PO PRN (02:52)
[2021-05-28 05:52] LABS: Hematocrit (blood only) 40.8 % (42-52); Hemoglobin 13.6 g/dL (14.0-18.0); Mean Corpuscular Hemoglobin 29.5 pg (25-34); Mean Corpuscular Hgb Conc 33.3 g/dL (32-36); Mean Corpuscular Volume 88.5 fL (80-100); RDW Coefficient of Variation 15.6 % (11.5-14.5); RDW Standard Deviation 50.4 fL (36.4-46.3); Red Blood Count 4.61 M/uL (4.7-6.1); White Blood Count 10.61 K/uL (4.8-10.8)
[2021-05-28] MEDS ORDERED: ENOXAPARIN INJ 30 MG/0.3 ML SYR SQ SCH (06:00)
[2021-05-28 06:01] LABS: Mean Platelet Volume 10.4 fL (7.4-10.4); Platelet Count 80 K/uL (130-400)
[2021-05-28 06:16] LABS: BUN Creatinine Ratio 38.6 (10-20); Creatinine Clr Calc Pharmacy 68.6 ml/min; Est GFR (African American) 84.2 ml/min; Est GFR (Non-African American) 72.6 ml/min; Magnesium 2.4 mg/dl (1.8-2.4); Potassium 4.2 mmol/L (3.5-5.1)
[2021-05-28 07:07] LABS: Basophils # (auto) 0.01 K/uL (0-0.2); Basophils % (auto) 0.1 %; Eosinophils # (auto) 0.02 K/uL (0-0.5); Eosinophils % (auto) 0.2 %; Immature Granulocytes # (auto) 0.04 K/uL (0.00-0.02); Immature Granulocytes % (auto) 0.4 %; Lymphocytes # (auto) 3.45 K/uL (1.2-3.4); Lymphocytes % (auto) 32.5 %; Monocytes # (auto) 0.62 K/uL (0.11-0.59); Monocytes % (auto) 5.8 %; Neutrophils # (auto) 6.47 K/uL (1.4-6.5)
[2021-05-28] MEDS ORDERED: Influenza Vaccine-High Dose (Fluzone-HD) PF 65+ 0.7 ML SYR IM ONE (08:00)
--- NOTE | 2021-05-28 08:44 | Cardiology Consultation ---
Date of Consultation May 28, 2021 Assessment & Plan (1) LBBB (left bundle branch block): (2) CLL (chronic lymphocytic leukemia): (3) Thrombocytopenia: Patient admitted for new LBBB in the outpatient setting after concerning symptoms of diaphoresis, SOB and hypotension the day prior during treatment for CLL. Likely reaction to his treatment, improved with steroids/benadryl. Work up in ER included negative troponin x3. Echo with normal LVEF, and wall motion abnormalities consistent with underlying LBBB. No recurrent symptoms since admission. Patient anxious for discharge to receive his next CLL treatment, due today. Stable cardiac symptoms for discharge. Given negative enzymes, preserved EF, and his thrombocytopenia while underlying treatment for CLL, ischemic work up not advised at this time. He would not be a candidate for dual antiplatelet therapy. Once his treatment has been completed and platelets stabilized, could consider nuclear stress test as an outpatient. Discharge on same home cardiac meds including ASA, zetia, metoprolol. CBC/platelet count will be monitored by oncology as outpatient. Discussed case with Dr. Bob. Supervising Physician Co-Signing Physician Notes Patient seen and examined the bedside. Currently feels well from a cardiovascular perspective. Denies chest pain or shortness of breath. Telemetry reveals sinus rhythm with a left bundle branch block. No dysrhythmias. Denies orthopnea, PND, or lower extremity edema. PE: VSS. Gen: NAD, AAOx3. Heart:Regular, normal S1S2. Lung: Clear B/L, No rales, rhonchi or wheeze. Extremities: No edema. A/P: Agree with above JANICE history, physical exam, assessment and plan. Patient stable for discharge home on current cardiovascular medications including aspirin, Zetia, and metoprolol. Outpatient cardiology follow-up as scheduled. History of Present Illness Reason for Consultation: New LBBB; SOB Requesting Physician: Dr. Garcia Attending Physician: Dr. Bob History of Present Illness Patient is a 76 year old male who presents to [facility] from outpatient cardiology office, with Natan Shaffer PA-C (primary modular set crew member is Dr. King), after being found to have new LBBB in the outpatient setting. The day prior, he started treatment for recurrent CLL with Gazyva. During the treatment, he apparently had a reaction and treatment was cut short, treated with steroids and Benadryl and then developed acute SOB, diaphoresis and hypotension. Symptoms resolved and was sent home. He then had 2nd round of treatment yesterday with lower dose Gazyva which he tolerated. After his treatment, he went for his routine cardiology appt and apparently developed acute SOB upon arriving to his cardiology appointment yesterday. When EKG was completed, demonstrating NSR with new LBBB, there were concerns for acute IL vs new cardiomyopathy and he was directed to [facility] for evaluation and treatment. Upon arrival in ER, EKG demonstrated NSR with LBBB, initial troponin negative. Now repeat troponin x3 negative. Chest xray with possible right pleural effusion. however per review of prior outpatient imaging studies, it appears he has chronic right bronchiectasis and peribronchial thickening on prior chest CT's. At time of consult patient pacing anxiously in room. He reports feeling well and wants to be discharged to receive his next treatment today. Since admission he had no recurrent episodes of SOB, diaphoresis, hypotension. No chest pain since admission. He voices no complaints currently in the room. No orthopnea, PND or edema. No fever, cough chills. 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, rare palpitations Allergies Allergy/AdvReac Type Severity Reaction Status Date / Time diphenhydramine Allergy Severe Hypotension,Sweating, Unverified 05/27/21 18:50 [From Benadryl] Shaking adhesive tape Allergy Unknown Unknown Verified 05/27/21 21:22 acetaminophen [From Tylenol] Allergy Unknown Unverified 05/27/21 18:50 clavulanic acid Allergy Unknown Unverified 05/27/21 18:50 [From Augmentin] desflurane Allergy Unknown Unverified 05/27/21 18:50 enflurane Allergy Unknown Unverified 05/27/21 18:50 ether Allergy Unknown Unverified 05/27/21 18:50 halothane Allergy Unknown Unverified 05/27/21 18:50 hydrocortisone Allergy Unknown Unverified 05/27/21 18:50 isoflurane Allergy Unknown Unverified 05/27/21 18:50 methoxyflurane Allergy Unknown Unverified 05/27/21 18:50 nickel Allergy Unknown Unverified 05/27/21 18:50 Penicillins Allergy Unknown Unverified 05/27/21 18:50 sevoflurane Allergy Unknown Unverified 05/27/21 18:50 succinylcholine Allergy Unknown Unverified 05/27/21 18:50 varenicline [From Chantix] Allergy Unknown Unverified 05/27/21 18:50 Home Medications Medication Instructions Recorded Confirmed Type aspirin 81 mg tablet,delayed 81 mg PO DAILY tab 03/23/19 05/27/21 History release blood sugar diagnostic (Prodigy No #10 ea 03/23/19 04/24/21 History Coding) blood-glucose meter (Prodigy #1 ea 03/23/19 04/24/21 History Autocode Monitor Syst) hydrocortisone valerate 0.2 % 1 appln TOP BID PRN 03/23/19 05/27/21 History topical cream lancets 28 gauge (DonorsPlay Lancets) #25 ea 03/23/19 04/24/21 History pen needle, diabetic 32 gauge x #10 ea 03/23/19 04/24/21 History 5/32" (BD Ultra-Fine Elida Pen Needle) sildenafil 100 mg tablet (Viagra) 100 mg PO DAILY PRN #10 tab 03/23/19 05/27/21 History miconazole nitrate 2 % topical 1 appln TOP DAILY PRN 04/15/19 05/27/21 History powder (Zeasorb AF) clonazepam 0.5 mg tablet 0.5 mg PO TID PRN #60 tab 10/13/19 05/27/21 Rx fluticasone propionate 50 2 sprays INTRANASAL DAILY #1 btl 10/13/19 05/27/21 Rx mcg/actuation nasal spray,suspension FreeStyle Santa 2 Sensor (flash #2 ea NS 04/09/21 04/24/21 Rx glucose sensor) adapalene 0.3 % topical gel 1 applic TOPICAL DAILY PRN gm 04/24/21 05/27/21 History betamethasone, augmented 0.05 % 1 applic TOPICAL BID PRN #1 gm 04/24/21 05/27/21 History topical ointment cyanocobalamin (vitamin B-12) 500 1,000 mcg SL DAILY tab 04/24/21 05/27/21 History mcg disintegrating tablet,sublingual ezetimibe 10 mg tablet (Zetia) 10 mg PO DAILY tab 04/24/21 05/27/21 History insulin degludec 100 unit/mL (3 25 unit SQ HS ml 04/24/21 05/27/21 History mL) subcutaneous pen (Tresiba FlexTouch U-100 insulin) ketoconazole 2 % topical cream 1 applic TOPICAL BID PRN #1 gm 04/24/21 05/27/21 History metoclopramide HCl 5 mg tablet 5 mg PO PM tab 04/24/21 05/27/21 History mupirocin 2 % topical ointment 1 applic TOPICAL TID PRN #1 gm 04/24/21 05/27/21 History nystatin-triamcinolone 100,000 1 applic TOPICAL BID PRN #1 gm 04/24/21 05/27/21 History unit/gram-0.1 % topical ointment oxycodone 30 mg tablet 30 mg PO Q4H PRN #180 tab 05/09/21 05/27/21 Rx allopurinol 300 mg tablet 300 mg PO QAM 05/27/21 05/27/21 History cholecalciferol (vitamin D3) 10 10 mcg PO QAM 05/27/21 05/27/21 History mcg (400 unit) tablet (Vitamin D3) empagliflozin 10 mg tablet 10 mg PO QAM 05/27/21 05/27/21 History (Jardiance) krill 500 mg-omega-3 150 mg-dha 45 1 cap PO QAM 05/27/21 05/27/21 History mg-epa 75 [id number] capsule (krill oil) levothyroxine 112 mcg tablet 112 mcg PO HS 05/27/21 05/27/21 History (Synthroid) lutein 20 mg tablet 20 mg PO QAM 05/27/21 05/27/21 History metoprolol succinate 50 mg 50 mg PO QAM 05/27/21 05/27/21 History tablet,extended release 24 hr (Toprol XL) milk thistle 500 mg capsule 1,000 mg PO QAM 05/27/21 05/27/21 History omeprazole 20 mg capsule,delayed 20 mg PO QAM 05/27/21 05/27/21 History release sulindac 200 mg tablet 100 mg PO UD 05/27/21 05/27/21 History triamcinolone acetonide 0.025 % 1 applic TOPICAL DAILY PRN 05/27/21 05/27/21 History topical cream Patient History Medical History (Updated 05/27/21 @ 22:53 by Anton Bailon DO) Adrenal nodule ASCVD (arteriosclerotic cardiovascular disease) Benign prostatic hyperplasia with urinary obstruction BPH with obstruction/lower urinary tract symptoms Chronic 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 CLL (chronic lymphocytic leukemia) Diabetes type 2, controlled Dyslipidemia Fatty liver Gastroparesis History of thyroid cancer Hypothyroidism, postablative Surgical History (Updated 05/27/21 @ 20:14 by NERY Aguilar) History of cataract surgery History of cholecystectomy History of thyroidectomy Hx of parathyroidectomy S/P AAA (abdominal aortic aneurysm) repair Family History Mother Diabetes Myocardial infarction Father Stroke Myocardial infarction Sister Alzheimer disease Breast cancer Denies family history of Ovarian cancer Prostate cancer Colorectal cancer Social History Smoking Status: Current some day smoker Tobacco Type: Cigarettes Age Started Using Tobacco: 16; Second Hand Exposure: No; Hx Alcohol Use: No Hx Substance Use: No Preferred Language: Lithuanian Communication Ability: Effective Visual Impairment: Limited Hearing Ability: Normal Forge Operator Required: No Beliefs That Will Affect Care: None marital status: Single Current Living Situation: Alone current occupational status: retired Feels Safe at Home: Yes Childhood Exposure to Second-Hand Smoke: Yes Dental Care, Regularly: Yes Physical Activity Frequency: Does not Exercise Seatbelt Use: always Sunscreen Use: Yes Assistive Devices: Cane, Denture - Upper and Glasses Review of Systems Review of Systems: All systems reviewed & are unremarkable except as noted in HPI & below Physical Exam Constitutional: WD/WN, vitals as above Eyes: PERRL, conjunctivae normal, anicteric sclerae Respiratory: normal respiratory effort; no respiratory distress Ausc ultation: + diminished lung sounds (right base, otherwise clear ) Cardiovascular: RRR, no murmur, no edema Heart Sounds: normal S1 and normal S2; no murmur Vessels: no JVD Gastrointestinal (Abdomen): normal bowel sounds, soft, nontender, no hepatosplenomegaly Musculoskeletal: no cyanosis or clubbing, extremities motor strength 5/5 Neurologic: PERRL, EOMI, accommodation nl, no face palsy, no dysarthria Psychiatric: A+Ox3, euthymic affect Results & Data ([facility]) Vital Signs (Past 12 Hours) Vital Signs Temp Pulse Pulse Resp BP BP Pulse Ox 05/28/21 08:18 60 05/28/21 07:33 36.6 C 66 18 107/61 96 05/28/21 02:25 72 05/28/21 02:11 36.8 C 65 18 115/64 94 05/28/21 02:00 62 16 115/53 L 93 05/28/21 00:30 56 L 18 115/62 96 05/28/21 00:00 58 L 18 132/59 L 95 05/27/21 23:30 175 H 24 118/62 95 05/27/21 23:00 118 H 20 126/62 95 05/27/21 22:30 22 95 05/27/21 22:20 94 05/27/21 22:10 94 05/27/21 22:00 95 05/27/21 21:50 96 05/27/21 21:34 95 05/27/21 21:00 124 H 22 138/64 95 Laboratory Results 05/28/21 05/28/21 05/28/21 Range/Units 05:38 05:38 05:38 WBC 10.61 (4.8-10.8) K/uL RBC 4.61 L (4.7-6.1) M/uL Hgb 13.6 L (14.0-18.0) g/dL Hct 40.8 L (42-52) % MCV 88.5 (80-100) fL MCH 29.5 (25-34) pg MCHC 33.3 (32-36) g/dL RDW Std Deviation 50.4 H (36.4-46.3) fL RDW Coeff of Ct 15.6 H (11.5-14.5) % Plt Count 80 L (130-400) K/uL MPV 10.4 (7.4-10.4) fL Immature Gran % (Auto) 0.4 % Neut % (Auto) 61.0 % Lymph % (Auto) 32.5 % Union % (Auto) 5.8 % Eos % (Auto) 0.2 % Baso % (Auto) 0.1 % Neut # (Auto) 6.47 (1.4-6.5) K/uL Lymph # (Auto) 3.45 H (1.2-3.4) K/uL Union # (Auto) 0.62 H (0.11-0.59) K/uL Eos # (Auto) 0.02 (0-0.5) K/uL Baso # (Auto) 0.01 (0-0.2) K/uL Immature Gran # (Auto) 0.04 H (0.00-0.02) K/uL Platelet Estimate (Normal) PT (9.0-12.0) Seconds INR (0.9-1.1) APTT (21.0-31.0) Seconds PTT Ratio Sodium 138 (136-145) mmol/L Potassium 4.2 (3.5-5.1) mmol/L Chloride 108 H (98-107) mmol/L Carbon Dioxide 20 L (21-32) mmol/L Anion Gap 10.0 (3-11) BUN 38 H (7-18) mg/dl Creatinine 0.99 (0.6-1.4) mg/dl Est Cr Clr Drug Dosing 68.6 ml/min Est GFR ( Amer) 84.2 ml/min Est GFR (Non-Af Amer) 72.6 ml/min BUN/Creatinine Ratio 38.6 H (10-20) Glucose 188 H (70-99) mg/dl POC Glucose (70-99) mg/dl Calcium 8.0 L (8.5-10.1) mg/dl Magnesium 2.4 (1.8-2.4) mg/dl Total Bilirubin (0.2-1) mg/dl AST (15-37) U/L ALT (12-78) U/L Alkaline Phosphatase (45-117) U/L Troponin I < 0.015 (0-0.045) ng/ml Total Protein (6.4-8.2) gm/dl Albumin (3.4-5.0) gm/dl Globulin (2.5-4.0) gm/dl Albumin/Globulin Ratio (0.9-2) Lipase (73-393) U/L Specimen Hemolysis COVID-19 Eval Order SARS-CoV-2 (PCR) (Negative) 05/28/21 05/28/21 05/27/21 Range/Units 03:40 01:01 17:05 WBC (4.8-10.8) K/uL RBC (4.7-6.1) M/uL Hgb (14.0-18.0) g/dL Hct (42-52) % MCV (80-100) fL MCH (25-34) pg MCHC (32-36) g/dL RDW Std Deviation (36.4-46.3) fL RDW Coeff of Ct (11.5-14.5) % Plt Count (130-400) K/uL MPV (7.4-10.4) fL Immature Gran % (Auto) % Neut % (Auto) % Lymph % (Auto) % Union % (Auto) % Eos % (Auto) % Baso % (Auto) % Neut # (Auto) (1.4-6.5) K/uL Lymph # (Auto) (1.2-3.4) K/uL Union # (Auto) (0.11-0.59) K/uL Eos # (Auto) (0-0.5) K/uL Baso # (Auto) (0-0.2) K/uL Immature Gran # (Auto) (0.00-0.02) K/uL Platelet Estimate (Normal) PT (9.0-12.0) Seconds INR (0.9-1.1) APTT (21.0-31.0) Seconds PTT Ratio Sodium (136-145) mmol/L Potassium (3.5-5.1) mmol/L Chloride (98-107) mmol/L Carbon Dioxide (21-32) mmol/L Anion Gap (3-11) BUN (7-18) mg/dl Creatinine (0.6-1.4) mg/dl Est Cr Clr Drug Dosing ml/min Est GFR ( Amer) ml/min Est GFR (Non-Af Amer) ml/min BUN/Creatinine Ratio (10-20) Glucose (70-99) mg/dl POC Glucose 147 H (70-99) mg/dl Calcium (8.5-10.1) mg/dl Magnesium (1.8-2.4) mg/dl Total Bilirubin (0.2-1) mg/dl AST (15-37) U/L ALT (12-78) U/L Alkaline Phosphatase (45-117) U/L Troponin I < 0.015 (0-0.045) ng/ml Total Protein (6.4-8.2) gm/dl Albumin (3.4-5.0) gm/dl Globulin (2.5-4.0) gm/dl Albumin/Globulin Ratio (0.9-2) Lipase (73-393) U/L Specimen Hemolysis COVID-19 Eval Order SARS-CoV-2 (PCR) NEGATIVE (Negative) 05/27/21 05/27/21 05/27/21 Range/Units 17:05 16:47 16:47 WBC (4.8-10.8) K/uL RBC (4.7-6.1) M/uL Hgb (14.0-18.0) g/dL Hct (42-52) % MCV (80-100) fL MCH (25-34) pg MCHC (32-36) g/dL RDW Std Deviation (36.4-46.3) fL RDW Coeff of Ct (11.5-14.5) % Plt Count (130-400) K/uL MPV (7.4-10.4) fL Immature Gran % (Auto) % Neut % (Auto) % Lymph % (Auto) % Union % (Auto) % Eos % (Auto) % Baso % (Auto) % Neut # (Auto) (1.4-6.5) K/uL Lymph # (Auto) (1.2-3.4) K/uL Union # (Auto) (0.11-0.59) K/uL Eos # (Auto) (0-0.5) K/uL Baso # (Auto) (0-0.2) K/uL Immature Gran # (Auto) (0.00-0.02) K/uL Platelet Estimate (Normal) PT 11.6 (9.0-12.0) Seconds INR 1.2 H (0.9-1.1) APTT 24.4 (21.0-31.0) Seconds PTT Ratio 0.9 Sodium 138 (136-145) mmol/L Potassium 4.6 (3.5-5.1) mmol/L Chloride 106 (98-107) mmol/L Carbon Dioxide 20 L (21-32) mmol/L Anion Gap 12.0 H (3-11) BUN 38 H (7-18) mg/dl Creatinine 1.19 (0.6-1.4) mg/dl Est Cr Clr Drug Dosing 51.2 ml/min Est GFR ( Amer) 67.4 ml/min Est GFR (Non-Af Amer) 58.2 ml/min BUN/Creatinine Ratio 32.3 H (10-20) Glucose 246 H (70-99) mg/dl POC Glucose (70-99) mg/dl Calcium 8.7 (8.5-10.1) mg/dl Magnesium (1.8-2.4) mg/dl Total Bilirubin 0.4 (0.2-1) mg/dl AST 29 (15-37) U/L ALT 24 (12-78) U/L Alkaline Phosphatase 116 (45-117) U/L Troponin I < 0.015 (0-0.045) ng/ml Total Protein 6.8 (6.4-8.2) gm/dl Albumin 3.1 L (3.4-5.0) gm/dl Globulin 3.7 (2.5-4.0) gm/dl Albumin/Globulin Ratio 0.8 L (0.9-2) Lipase 55 L (73-393) U/L Specimen Hemolysis COVID-19 Eval Order Covid19 at [facility] SARS-CoV-2 (PCR) (Negative) 05/27/21 Range/Units 16:47 WBC 13.65 H (4.8-10.8) K/uL RBC 4.77 (4.7-6.1) M/uL Hgb 14.3 (14.0-18.0) g/dL Hct 42.2 (42-52) % MCV 88.5 (80-100) fL MCH 30.0 (25-34) pg MCHC 33.9 (32-36) g/dL RDW Std Deviation 50.2 H (36.4-46.3) fL RDW Coeff of Ct 15.5 H (11.5-14.5) % Plt Count 77 L (130-400) K/uL MPV 10.4 (7.4-10.4) fL Immature Gran % (Auto) 0.2 % Neut % (Auto) 62.4 % Lymph % (Auto) 31.3 % Union % (Auto) 5.9 % Eos % (Auto) 0.1 % Baso % (Auto) 0.1 % Neut # (Auto) 8.52 H (1.4-6.5) K/uL Lymph # (Auto) 4.27 H (1.2-3.4) K/uL Union # (Auto) 0.80 H (0.11-0.59) K/uL Eos # (Auto) 0.02 (0-0.5) K/uL Baso # (Auto) 0.01 (0-0.2) K/uL Immature Gran # (Auto) 0.03 H (0.00-0.02) K/uL Platelet Estimate Decreased L (Normal) PT (9.0-12.0) Seconds INR (0.9-1.1) APTT (21.0-31.0) Seconds PTT Ratio Sodium (136-145) mmol/L Potassium (3.5-5.1) mmol/L Chloride (98-107) mmol/L Carbon Dioxide (21-32) mmol/L Anion Gap (3-11) BUN (7-18) mg/dl Creatinine (0.6-1.4) mg/dl Est Cr Clr Drug Dosing ml/min Est GFR ( Amer) ml/min Est GFR (Non-Af Amer) ml/min BUN/Creatinine Ratio (10-20) Glucose (70-99) mg/dl POC Glucose (70-99) mg/dl Calcium (8.5-10.1) mg/dl Magnesium (1.8-2.4) mg/dl Total Bilirubin (0.2-1) mg/dl AST (15-37) U/L ALT (12-78) U/L Alkaline Phosphatase (45-117) U/L Troponin I (0-0.045) ng/ml Total Protein (6.4-8.2) gm/dl Albumin (3.4-5.0) gm/dl Globulin (2.5-4.0) gm/dl Albumin/Globulin Ratio (0.9-2) Lipase (73-393) U/L Specimen Hemolysis COVID-19 Eval Order SARS-CoV-2 (PCR) (Negative) Diagnostic Findings Telemetry reviewed- NSR with conduction delay consistent with LBBB EKG completed in ER - NSR with LBBB EKG done in clinic -- NSR with LBBB compared with prior EKG, LBBB was new Chest xray reviewed on arrival - IMPRESSION: Possible layering right pleural effusion. Otherwise no acute abnormality Medications Administered Current Inpatient Medications Acetaminophen (Acetaminophen 325 Mg Tab) 650 mg PO Q4H PRN PRN Reason: Pain or Fever Stop: 06/27/21 02:51 Allopurinol (Allopurinol 300 Mg Tab) 300 mg PO QAM KENJI Stop: 06/27/21 08:59 Aspirin (Aspirin 81 Mg Ectab) 81 mg PO DAILY KENJI Stop: 06/27/21 08:59 Clonazepam (Clonazepam 0.5 Mg Tab) 0.5 mg PO TID PRN PRN Reason: anxiety Stop: 06/27/21 02:51 Dextrose (Dextrose 50% 50 Ml Syringe) 25 - 50 ml IV UD PRN; Protocol PRN Reason: Hypoglycemia Protocol Stop: 06/27/21 02:51 Ezetimibe (Ezetimibe 10 Mg Tablet) 10 mg PO DAILY KENJI Stop: 06/27/21 08:59 Enoxaparin Sodium (Enoxaparin Inj 30 Mg/0.3 Ml Syr) 40 mg SQ Q24H KENJI Stop: 06/27/21 05:59 Last Admin: 05/28/21 05:30 Dose: 40 mg Documented by: Fluticasone Propionate (Fluticasone Propionate Na Spr 16 Gm Btl) 2 sprays NA DAILY KENJI Stop: 06/27/21 08:59 Glucagon (Glucagon For Inj 1 Mg Vial) 1 mg SQ UD PRN; Protocol PRN Reason: Hypoglycemia Protocol Stop: 06/27/21 02:51 Glucose (Glucose 10 Tabs/Tube) 4 - 8 tabs PO UD PRN; Protocol PRN Reason: Hypoglycemia Protocol Stop: 06/27/21 02:51 Glucose (Glucose 40% Gel 15 Gm Tube) 15 - 30 gm PO UD PRN; Protocol PRN Reason: Hypoglycemia Protocol Stop: 06/27/21 02:51 Insulin Aspart (Insulin Aspart 100 Units/Ml 3 Ml Pen) 0 units SC ACHS KENJI Stop: 06/27/21 07:29 Insulin Glargine (Insulin Glargine Solostar 100 Units/Ml 3 Ml Pen) 25 units SQ HS KENJI Stop: 06/27/21 20:59 Levothyroxine Sodium (Levothyroxine Sodium 112 Mcg Tablet) 112 mcg PO HS KENJI Stop: 06/27/21 02:51 Last Admin: 05/28/21 05:29 Dose: 112 mcg Documented by: Metoclopramide HCl (Metoclopramide Hcl 5 Mg Tablet) 5 mg PO PM [facility] Stop: 06/27/21 02:51 Last Admin: 05/28/21 05:29 Dose: 5 mg Documented by: Metoprolol Succinate (Metoprolol Succ 50mg Ext Rel Tab) 50 mg PO QAM [facility] Stop: 06/27/21 08:59 Miconazole Nitrate (Miconazole Nitrate Powder 43 Gm) 1 appln TOP DAILY PRN PRN Reason: INGUINAL FOLDS Stop: 06/27/21 02:51 Miscellaneous (Carbohydrates For Hypoglycemia ) 15 - 30 gm PO UD PRN PRN Reason: Hypoglycemia Protocol Stop: 06/27/21 02:51 Ondansetron HCl (Ondansetron Inj 2 Mg/Ml 2 Ml Vial) 4 mg IV Q6H PRN PRN Reason: Nausea Stop: 06/27/21 02:51 Oxycodone HCl (Oxycodone Hcl Ir 30 Mg Tab (Immediate Release)) 30 mg PO Q4H PRN PRN Reason: pain Stop: 06/11/21 02:51 Pantoprazole Sodium (Pantoprazole 40 Mg Tab) 40 mg PO [facility] Stop: 06/27/21 08:59 Polyethylene Glycol (Polyethylene (Miralax) 17 Gm Pack) 17 gm PO DAILY PRN PRN Reason: Constipation Stop: 06/27/21 02:51 Triamcinolone Acetonide (Triamcinolone Acet 0.025% Cr 15 Gm Tube) 1 appln TOP DAILY PRN PRN Reason: dry irritated skin Stop: 06/27/21 02:51 Vitamin D (Cholecalciferol 400 Units 10 Mcg Tab) [facility] Stop: 06/27/21 08:59
[2021-05-28] MEDS ORDERED: NON-FORMULARY MEDICATION (Lutein 20 mg Tablet) PO SCH (09:00)
[2021-05-28] MEDS ORDERED: METOPROLOL SUCC 50MG EXT REL TAB PO SCH (09:00)
[2021-05-28] MEDS ORDERED: FLUTICASONE PROPIONATE NA SPR 16 GM BTL SCH (09:00)
[2021-05-28] MEDS ORDERED: allopurinoL 300 MG TAB PO SCH (09:00)
[2021-05-28] MEDS ORDERED: CHOLECALCIFEROL 400 UNITS 10 MCG TAB PO SCH (09:00)
[2021-05-28] MEDS ORDERED: EZETIMIBE 10 MG TABLET PO SCH (09:00)
[2021-05-28] MEDS ORDERED: PANTOprazole 40 MG TAB PO SCH (09:00)
[2021-05-28] MEDS ORDERED: KRILL OM DHA EPA PHOSPHO AST PO SCH (09:00)
[2021-05-28] MEDS ORDERED: ASPIRIN 81 MG ECTAB PO SCH (09:00)
[2021-05-28] MEDS: INSULIN ASPART 100 UNITS/ML 3 ML PEN SC SCH ×2 (10:41→12:31)
--- NOTE | 2021-05-28 14:29 | Discharge Summary ---
Date of Service May 28, 2021 Admission HPI Per Admitting Provider 76 YOM with past medical history of: CLL of B-cell type(Gazyva) originally diagnosed in 2018 with return of lymphadenopathy return in January, has just started Gazyva again 1 cycle, DM2, HLD, CAD, Gastroparesis, Tyroid Cancer- with thyroidectomy, Hyperparathyroidism, AAA repair, HTN, current smoker. Patient was referred today from reportedly his healthcare account manager office for new onset LBBB found on ECG. The patient denies any chest pain or increase in shortness of breath, n/v, activity intolerance. In the EMD the patient had routine blood work performed to include Troponin I, CXR, ECG done. His troponin I was negati ve and ECG does reveal LBBB. As above the patient denies any acute symptoms- he does endorse that he recently started Gazyva treatment for his CLL. His first treatment was on Wednesday and the treatment was cut short. The patient recalls that he got a dose of Benadryl which made him dizzy, lightheaded and very diaphoretic and recalls that he thinks his blood pressure dropped dramatically- he then endorses that he got a dose of steroids and felt his HR increasing and had rigors and shaking. He reports a dose reduction today, which he did not have any complications he reports. The patient has baseline dyspnea and wheezing from smoking history, he continues to smoke 1-2 cigarettes a week or less. He does not follow with a lock assembler that he recalls and is not on any inhalers as outpatient. He does have risk factors of smoking, HTN, HLD, DM. Patient will be observed overnight on telemetry continue to trend Troponin I and ECGs, will obtain ECHO in the morning to evaluate for any wall motion abnormalities or changes. The patient has received his COVID vaccine and Booster: His COVID test on admission is: NEGATIVE Principal Diagnosis 1. Abnormal EKGnew LBBB. ACS ruled out 2. Hyperglycemia Discharge Exam General: Resting comfortably in his hospital bed. NAD. HEENT: Head is AT/NC buccal mucosa is moist and pink Neck: No JVD. Negative hepatojugular reflex Cardiac: RRR without M/G/R Lungs: CTA without W/R/R Abdomen: Normoactive X4. Soft and nontender in all quadrants. Extremities: No peripheral clubbing cyanosis or edema Neuro: A&O X4 cranial nerves II through XII are grossly intact no focal neuro deficits Skin: No obvious skin lesions or rashes Psych: Appropriate affect pleasant and cooperative Discharge Data Allergies Allergy/AdvReac Type Severity Reaction Status Date / Time diphenhydramine Allergy Severe Hypotension,Sweating, Unverified 06/02/21 13:07 [From Benadryl] Shaking adhesive tape Allergy Unknown Unknown Verified 06/02/21 13:07 acetaminophen [From Tylenol] Allergy Unknown Unverified 06/02/21 13:07 clavulanic acid Allergy Unknown Unverified 06/02/21 13:07 [From Augmentin] desflurane Allergy Unknown Unverified 06/02/21 13:07 enflurane Allergy Unknown Unverified 06/02/21 13:07 ether Allergy Unknown Unverified 06/02/21 13:07 halothane Allergy Unknown Unverified 06/02/21 13:07 hydrocortisone Allergy Unknown Unverified 06/02/21 13:07 isoflurane Allergy Unknown Unverified 06/02/21 13:07 methoxyflurane Allergy Unknown Unverified 06/02/21 13:07 nickel Allergy Unknown Unverified 06/02/21 13:07 Penicillins Allergy Unknown Unverified 06/02/21 13:07 sevoflurane Allergy Unknown Unverified 06/02/21 13:07 succinylcholine Allergy Unknown Unverified 06/02/21 13:07 varenicline [From Chantix] Allergy Unknown Unverified 06/02/21 13:07 Consultations 05/27/21 16:32 Consult Cardiology Stat Assessment & Plan (1) LBBB (left bundle branch block): (2) CLL (chronic lymphocytic leukemia): (3) Thrombocytopenia: Patient admitted for new LBBB in the outpatient setting after concerning symptoms of diaphoresis, SOB and hypotension the day prior during treatment for CLL. Likely reaction to his treatment, improved with steroids/benadryl. Work up in ER included negative troponin x3. Echo with normal LVEF, and wall motion abnormalities consistent with underlying LBBB. No recurrent symptoms since admission. Patient anxious for discharge to receive his next CLL treatment, due today. Stable cardiac symptoms for discharge. Given negative enzymes, preserved EF, and his thrombocytopenia while underlying treatment for CLL, ischemic work up not advised at this time. He would not be a candidate for dual antiplatelet therapy. Once his treatment has been completed and platelets stabilized, could consider nuclear stress test as an outpatient. Discharge on same home cardiac meds including ASA, zetia, metoprolol. CBC/platelet count will be monitored by oncology as outpatient. Discussed case with Dr. Bob. Hospital Course (1) LBBB (left bundle branch block): Reportedly new onset from cardiology office- follows with Albertina -No EKG in chart at present - ECG reported done in the ED showing LBBB - ECHO showing EF of 50 to 55% with septal motion consistent with conduction abnormality. Aortic valve sclerosis moderate without significant stenosis. Grade 1 diastolic dysfunction. - Troponin negative X3 sets - Denies chest pain, shortness of breath, palpitations, jaw pain, arm pain. At this point, he has ruled out for acute coronary syndrome but does have a new LBBB compared to prior EKG - Seen by established healthcare account manager who plans for no changes at this time. Recom mend continuing current medication and plan for outpatient stress test -Mild thrombocytopenia. May be related to addition of chemotherapy. He does take aspirin but with his related underlying history of CAD and now LBB, would not discontinue this medication. Did discuss with cardiology who recommends continuation of aspirin and they will follow platelet count closely (2) Hyperglycemia: -A1c 8.1% -Lengthy discussion with patient regarding the importance of good glycemic control and risk for underlying cardiac disease. He voices understanding -Takes Jardiance at home. -Declining medication change at this time. 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 (6) Dyslipidemia: intolerance to rosuvastatin noted - continue Zetia - continue Krill oil as outpatient- hold in house (7) Current smoker: 1-2 cigaretts per week or less - Continues to try to abstain (8) Lumbar degenerative disc disease: Chronic - continue tyelnol - Oxycodone 30 mg q4 hr prn (9) Malignant hyperthermia susceptibility: Genetic tested risk - noted in allergies as well (10) History of thyroidectomy: Follows with endocrine - Continue Synthroid Total Time Total Time Spent Total Time Spent (In Minutes): 35 min including coordination of care and discussion with specialist in addition to preparation of discharge Discharge Plan Discharge Items Patient Disposition: Home - Self-Care Reason For Visit: NEW LBBB Discharge Diagnosis: 1. Abnormal EKG- Acute Coronary syndrome has been ruled out Activity: As commented below Activity Comment: light activity until seen in follow up by Cardiology Non-emergency contact: Primary Care Provider and [employer] Call non-emergency contact if: you have any medication questions Follow-up/Referrals: Dione Steve MD [Primary Care Provider] - 06/06/21 10:20 am Diet: Heart Healthy Addtl Attending Provider Instructions: - Light activity until seen in follow up by your healthcare account manager - you take Aspirin daily. Your platelet count is dropping slightly (which needs to be monitored especially while on aspirin). I have spoke about this with your Superintendent [employer] and the plan is for you to conitnue your Aspirin for now but it if continues to drop, may need to consider discontinuation of Aspirin (which for now the benefit of being on it outweighs the risk) - No change in your medications - follow up with Cardiology - return to the ED for new or worsening symptoms Pending Studies at Discharge: No Stand-Alone Forms: My [facility] Medications and DC Order Prescriptions: Continued (DME) FreeStyle Santa 2 Sensor Kit See Rx Instructions miscellaneous .MEDSUPPLY Qty: 2 RF: 11 aspirin 81 mg tablet,delayed release (DR/EC) 81 mg PO DAILY RF: 0 sildenafil [Viagra] 100 mg tablet 100 mg PO DAILY PRN (Reason: Erectile Dysfunction) Qty: 10 RF: 0 adapalene 0.3 % gel 1 applic topical DAILY PRN (Reason: .) RF: 0 betamethasone, augmented 0.05 % ointment 1 applic topical BID PRN (Reason: .) Qty: 1 RF: 0 cyanocobalamin (vitamin B-12) 500 mcg tablet,disintegrating 1,000 mcg SL DAILY RF: 0 ketoconazole 2 % cream 1 applic topical BID PRN (Reason: .) Qty: 1 RF: 0 metoclopramide HCl 5 mg tablet 5 mg PO PM RF: 0 mupirocin 2 % ointment 1 applic topical TID PRN (Reason: .) Qty: 1 RF: 0 nystatin-triamcinolone 100,000-0.1 unit/gram-% ointment 1 applic topical BID PRN (Reason: .) Qty: 1 RF: 0 (DME) blood-glucose meter [Scratch Wireless Autocode Monitor Syst] misc See Dose Instructions .ROUTE .MEDSUPPLY Qty: 1 RF: 0 (DME) lancets [Scratch Wireless Lancets] 28 gauge misc See Dose Instructions .ROUTE .MEDSUPPLY Qty: 25 RF: 0 (DME) Prodigy No Coding strip See Dose Instructions .ROUTE .MEDSUPPLY Qty: 10 RF: 0 (DME) pen needle, diabetic [BD Ultra-Fine Elida Pen Needle] 32 gauge x 5/32" needle See Dose Instructions .ROUTE .MEDSUPPLY Qty: 10 RF: 0 hydrocortisone valerate 0.2 % cream 1 appln TOP BID PRN (Reason: .) RF: 0 Zeasorb AF 2 % powder 1 appln TOP DAILY PRN (Reason: INGUINAL FOLDS) RF: 0 fluticasone propionate 50 mcg/actuation spray,suspension 2 sprays intranasal DAILY Qty: 1 RF: 11 clonazepam 0.5 mg tablet 0.5 mg PO TID PRN (Reason: anxiety) Qty: 60 RF: 0 ezetimibe [Zetia] 10 mg tablet 10 mg PO DAILY RF: 0 metoprolol succinate [Toprol XL] 50 mg tablet extended release 24 hr 50 mg PO QAM RF: 0 milk thistle 500 mg Capsule 1,000 mg PO QAM RF: 0 allopurinol 300 mg tablet 300 mg PO QAM RF: 0 krill oil [id number] mg Capsule 1 cap PO QAM RF: 0 Jardiance 10 mg tablet 10 mg PO QAM RF: 0 triamcinolone acetonide 0.025 % Cream 1 applic TOPICAL DAILY PRN (Reason: .) RF: 0 omeprazole 20 mg capsule,delayed release(DR/EC) 20 mg PO QAM RF: 0 cholecalciferol (vitamin D3) [Vitamin D3] 10 mcg (400 unit) Tablet 10 mcg PO QAM RF: 0 sulindac 200 mg Tablet 100 mg PO UD RF: 0 lutein 20 mg Tablet 20 mg PO QAM RF: 0 levothyroxine [Synthroid] 112 mcg tablet 112 mcg PO HS RF: 0 No Action Tresiba FlexTouch U-100 100 unit/mL (3 mL) insulin pen 40 unit SQ HS 90 Days Qty: 36 RF: 3 oxycodone 30 mg tablet 30 mg PO Q4H PRN (Reason: pain) Qty: 180 RF: 0 Discharge Orders: Discharge Order (Routine); Ordered 05/28/21 Ordered By: Taylor Trivedi Admission Data Admit Date/Time: 05/27/21 19:38 Attending Provider: Radha Garcia Admit Provider: Radha Garcia Primary Care Provider: Dione Steve Other Providers: Fernandez Bob ; Radha Garcia ; Angus Youssef ; Yovanny King ; Efraín Hernandez ; Dilip Ribera ; Nate Shaffer ; Karina Guerra ; Romy Suh ; Cortney Silverman. ; Tom Justice Other Interventions: Discharge Summary Assessment (RN) Last Done: 05/28/21 12:04 Supervising Physician Co-Signing Physician Notes Attending Attestation + Discharge Note: Pt seen/examined, chart reviewed, care plan d/w PA Taylor Trivedi. I agree with the kaufman components of her documentation. 76yo male with CLL undergoing active treatment, T2DM, tobacco use, acquired hypothyroidism - admitted to [facility] due to newly-discovered LBBB. W/u including troponins, telemetry, echo did not suggest ischemic heart disease. He has not had chest pain or other ischemic symptoms. Seen by [facility] - although stress test and/or heart cath would be ideal, both were deferred due to concern that current CLL takes precedence and, if CAD is found, would be poor candidate for DAPT. Thus, patient will f/u with the cardiology office for ongoing surveillance. Discharge exam: gen - NAD, pleasant neck - no JVD heart - RRR, s1 s2, no murmur lungs - CTA b/l abd - soft NT ND BS+ ext - no edema, pulses 2+ b/l Ancelmo Doss MD Coding [place] [address] OBS Care - Discharge Patient Type Established Diagnoses LBBB (left bundle branch block) I44.7 CLL (chronic lymphocytic leukemia) C91.90 Diabetes type 2, controlled E11.9 BPH with obstruction/lower urinary tract symptoms N40.1; N13.8 Dyslipidemia E78.5 Current smoker F17.200 Lumbar degenerative disc disease M51.36 Malignant hyperthermia susceptibility Z15.89 History of thyroidectomy Z90.09 Hyperglycemia R73.9
[2021-05-28] MEDS ORDERED: INSULIN GLARGINE SOLOSTAR 100 UNITS/ML 3 ML PEN SQ SCH (21:00)
== END 2021-05-28 13:32 | disposition home or self-care (01) ==
LOC: 2W 14:38 → ED 14:38 → 2W 05-28 02:00

== ENCOUNTER 2024-05-24 02:20 | Inpatient (IN) ==
--- NOTE | 2024-05-24 02:31 | Emergency Department Note ---
Impression & Plan Ambulatory dysfunction, Chronic lymphocytic leukemia ADMIT ED Provider Note HPI: History obtained from patient. The patient is a 79-year-old gentleman with history of thyroid cancer, CLL, who presents the emergency department with chief complaint of suprapubic pain after Gil catheter placement earlier this evening. Patient presented to the emergency room earlier this evening with urinary retention and Gil catheter was placed. Patient states that he still has some pain in the suprapubic region although it is improved from previous. Patient states that the initial attempt at the Gil catheter placement earlier in the evening caused him a great deal of pain and then this seemed to improve when the Gil catheter was repositioned by the ED RN. Patient's catheter bag does appear to be draining appropriately. Patient denies any nausea or vomiting, patient states overall he just feels very weak and feels that he might need to be admitted to the hospital at this time. Patient states that he has had some difficulty accomplishing activities of daily living at home over the past several weeks. On arrival here to the ED the patient is hemodynamically stable, he otherwise appears to be in no acute distress. ROS: - Per HPI Differential Diagnosis: Malpositioned Gil catheter, acute cystitis, chronic pain associated with CLL and peritoneal carcinomatosis, acute on chronic deconditioning, amongst other potential pathologies. *Outpatient medications and allergy history reviewed. PE: General: Alert, frail-appearing, no acute distress HEENT: Normocephalic, trachea midline Eyes: Extraocular eye movement is intact, no scleral erythema Pulmonary: Clear to auscultation bilaterally, no wheezing Cardio: Regular rate and rhythm GI: Abdomen is soft to palpation, Gil catheter in place without any blood surrounding the urethral meatus : No suprapubic tenderness MSK: No evidence of trauma or malformation of the extremities, no edema Skin: No evidence of rash Neuro: Alert, no focal deficits Psychiatric: Cooperative INDEPENDENT INTERPRETATIONS: compliance monitor: (As interpreted by myself): - An order was placed for continuous cardiac monitoring - Patient was noted to be in sinus rhythm with a rate of 80 Interventions provided in ED: -IV fluid bolus Medical Decision Making: IV was established and lab work obtained, patient was placed on potline monitor. Lab work shows a mild leukopenia that appears to be chronic, hemoglobin is stable 9.6, platelet count is reduced at 73 which also appears to be chronic/near baseline. CMP does not show any evidence of any critical findings. Urinalysis shows trace ketones, 1+ leukocyte esterase, urine nitrite is negative, overall nonspecific for infection. CT imaging of the abdomen pelvis does not show any evidence of any acute surgical findings, Gil catheter appears to be in place. There is urine draining into the bag. Patient does have some mild suprapubic discomfort which I believe is likely just secondary to Gil catheter placement that was just done earlier in the evening. I had a detailed discussion with the patient in regards to his activities of daily living, he states he is struggling to get around his house and take care of himself recently. He does not feel that he is safe to return home and at this time is requesting admission to the hospital for physical therapy and possible placement. He tells me that he is not currently getting any treatment from hematology/oncology in regards to his CLL. Per outpatient provider documentation there is some thought that the patient might benefit from palliative services at this point. I discussed all of this with the patient, he is in agreement for admission. Case was discussed with the on-call hospitalist, Dr. Garcia, and the patient was placed for admission in stable condition. Consultants/Discussions held with other healthcare providers: -Hospitalist, Dr. Garcia Disposition discussion held by myself with: -Patient Diagnosis: 1. Ambulatory dysfunction, acute on chronic 2. History of CLL with deconditioning 3. Urinary retention, status post Gil catheter placement 4. Leukopenia, chronic 5. Anemia, chronic 6. Thrombocytopenia, chronic Disposition: Admission Nate Weir DO Emergency Medicine Past Med/Surg History Problem List (Updated 05/24/24 @ 03:42 by Nate Weir DO) Chronic lymphocytic leukemia (Acute) Ambulatory dysfunction (Acute) Acute urinary retention (Acute) Abdominal aortic aneurysm 3.4 cm on PET scan (09/28/23) Peritoneal carcinomatosis Diabetic retinopathy associated with controlled type 2 diabetes mellitus History of thyroid cancer (Chronic) Injury of parathyroid gland Statin myopathy Complete left bundle branch block (LBBB) (Acute) Thrombocytopenia (Acute) History of thyroidectomy Hypothyroidism, postablative Diabetes type 2, controlled Gastroparesis BPH with obstruction/lower urinary tract symptoms Fatty liver (Chronic) CLL (chronic lymphocytic leukemia) (Chronic) Chronic 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 (Chronic) ASCVD (arteriosclerotic cardiovascular disease) (Chronic) Dyslipidemia Current smoker (Chronic) Erectile dysfunction (Chronic) Lumbar degenerative disc disease (Chronic) Malignant hyperthermia susceptibility (Chronic) Poor balance (Chronic) Vitamin B12 deficiency (Chronic) Vitamin D deficiency (Chronic) Medical History Statin myopathy Hypothyroidism, postablative Diabetes type 2, controlled History of thyroid cancer Gastroparesis BPH with obstruction/lower urinary tract symptoms Dyslipidemia ASCVD (arteriosclerotic cardiovascular disease) Adrenal nodule CLL (chronic lymphocytic leukemia) Chronic 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 Fatty liver 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 Surgical History S/P AAA (abdominal aortic aneurysm) repair History of cholecystectomy History of cataract surgery History of thyroidectomy Family History Mother Diabetes Myocardial infarction Father Stroke Myocardial infarction Sister Alzheimer disease Breast cancer Denies family history of Ovarian cancer Prostate cancer Colorectal cancer Social History Smoking Status: Current every day smoker Tobacco Type: Cigarettes Age Started Using Tobacco: 16; packs per day: 0.5; Cigarettes Per Day: 1 pack lasts 2 days; Second Hand Exposure: No; Do You Dip or Chew Tobacco: No; Hx Alcohol Use: No Hx Substance Use: No Preferred Language: Guinean Communication Ability: Effective Visual Impairment: Limited Hearing Ability: Normal Tour Bus Driver/Guide Required: No Beliefs That Will Affect Care: None marital status: Single Current Living Situation: Alone current occupational status: retired current occupation: used to [employer] and worked in a [employer] as well Feels Safe at Home: Yes Childhood Exposure to Second-Hand Smoke: Yes Diet: regular Dental Care, Regularly: Yes Physical Activity Frequency: Does not Exercise Seatbelt Use: always Sunscreen Use: No Assistive Devices: Cane, Denture - Upper and Glasses Allergies Allergies Allergy/AdvReac Type Severity Reaction Status Date / Time diphenhydramine Allergy Severe Hypotension,Sweating, Verified 05/12/24 15:16 [From Benadryl] Shaking adhesive tape Allergy Unknown Unknown Verified 05/12/24 15:16 acetaminophen [From Tylenol] Allergy Unknown Verified 05/12/24 15:16 clavulanic acid Allergy Unknown Verified 05/12/24 15:16 [From Augmentin] desflurane Allergy Unknown Verified 05/12/24 15:16 enflurane Allergy Unknown Verified 05/12/24 15:16 ether Allergy Unknown Verified 05/12/24 15:16 halothane Allergy Unknown Verified 05/12/24 15:16 hydrocortisone Allergy Unknown Verified 05/12/24 15:16 isoflurane Allergy Unknown Verified 05/12/24 15:16 methoxyflurane Allergy Unknown Verified 05/12/24 15:16 nickel Allergy Unknown Verified 05/12/24 15:16 Penicillins Allergy Unknown Verified 05/12/24 15:16 sevoflurane Allergy Unknown Verified 05/12/24 15:16 succinylcholine Allergy Unknown Verified 05/12/24 15:16 varenicline [From Chantix] Allergy Unknown Verified 05/12/24 15:16 Acalabrutinib Maleate Allergy "It Uncoded 05/12/24 15:16 destroyed my immunity cells." pepsi AdvReac Unknown leg Uncoded 05/12/24 15:16 cramping Doxycycline AdvReac Nausea, Uncoded 05/12/24 15:16 Vomitting Home Meds Home Medications Medication Instructions Recorded Confirmed hydrocortisone valerate 0.2 % 1 appln topical BID PRN . 03/23/19 04/25/24 topical cream lancets 28 gauge (Prodigy Lancets) #25 ea 03/23/19 04/25/24 sildenafil 100 mg tablet (Viagra) 100 mg PO DAILY PRN Erectile 03/23/19 04/25/24 Dysfunction #10 tabs miconazole nitrate 2 % topical 1 appln topical DAILY PRN INGUINAL 04/15/19 04/25/24 powder (Zeasorb AF) FOLDS adapalene 0.3 % topical gel 1 applic topical DAILY PRN . 04/24/21 05/12/24 betamethasone, augmented 0.05 % 1 applic topical BID PRN . #1 g 04/24/21 04/25/24 topical ointment cyanocobalamin (vitamin B-12) 500 1,000 mcg sublingual DAILY 04/24/21 04/25/24 mcg disintegrating tablet,sublingual ketoconazole 2 % topical cream 1 applic topical BID PRN . #1 g 04/24/21 04/25/24 mupirocin 2 % topical ointment 1 applic topical TID PRN . #1 g 04/24/21 04/25/24 nystatin-triamcinolone 100,000 1 applic topical BID PRN . #1 g 04/24/21 04/25/24 unit/gram-0.1 % topical ointment cholecalciferol (vitamin D3) 10 10 mcg PO QAM 05/27/21 04/25/24 mcg (400 unit) tablet (Vitamin D3) lutein 20 mg tablet 20 mg PO QAM 05/27/21 04/25/24 milk thistle 500 mg capsule 1,000 mg PO QAM 05/27/21 04/25/24 triamcinolone acetonide 0.025 % 1 applic topical DAILY PRN . 05/27/21 04/25/24 topical cream sulindac 200 mg tablet 100 mg PO BID PRN 06/03/22 04/25/24 igg infu See Rx Instructions IV .COMPLEX 09/27/23 04/25/24 allopurinol 100 mg tablet 50 mg PO DAILY 04/07/24 04/25/24 fluconazole 100 mg tablet 100 mg PO DAILY 04/07/24 04/25/24 folic acid 1 mg tablet 1 mg PO DAILY 04/07/24 04/25/24 omeprazole 20 mg capsule,delayed 20 mg PO DAILY 04/07/24 04/25/24 release Previous Rx's Medication Instructions Recorded clonazepam 0.5 mg tablet 0.5 mg PO TID PRN anxiety #60 tabs 12/21/22 blood-glucose meter,continuous #1 ea 04/19/23 (Dexcom G7 Bus Person) Synthroid 112 mcg tablet 112 mcg PO HS #90 tabs 10/11/23 (levothyroxine) empagliflozin 10 mg tablet 10 mg PO DAILY #90 tabs 02/15/24 (Jardiance) lidocaine 5 % topical patch 1 patch topical DAILY PRN pain 03/17/24 (Lidoderm) #30 ea fluticasone propionate 50 2 spray intranasal DAILY #1 btl 03/20/24 mcg/actuation nasal spray,suspension escitalopram oxalate 5 mg tablet 5 mg PO DAILY #30 tabs 04/13/24 prednisone 10 mg tablet See Rx Instructions PO DAILY #30 04/13/24 tabs insulin degludec 100 unit/mL (3 10 unit (0.1 mL) subcut DAILY #15 08/30/24 mL) subcutaneous pen (Tresiba mL FlexTouch U-100 insulin) pen needle, diabetic 32 gauge x #100 ea 04/21/24 532" (BD Ultra-Fine Elida Pen Needle) glucagon 3 mg/actuation nasal spray 3 mg intranasal ONCE #2 ea 04/25/24 Bedside Commode #1 ea 05/15/24 Wheelchair (Manual) #1 ea 05/18/24 oxycodone 30 mg tablet 30 mg PO Q4H PRN pain #180 tabs 05/18/24 Results & Data (ED) Vital Signs Vital Signs - 24 hr 05/24/24 02:25 05/24/24 02:42 05/24/24 02:54 Temperature 36.7 C Temperature Source Oral Pulse Rate 80 77 Pulse Rhythm Regular Pulse Strength Normal Respiratory Rate 17 Respiratory Effort / Characteristics Non-Labored Respiratory Depth Normal Respiratory Pattern Regular Blood Pressure 110/56 L Blood Pressure Mean 74 Pulse Oximetry 95 97 Oxygen Delivery Method Room Air Room Air Sepsis Recent Fever Within 48 Hours No Sepsis New/Unexplained Change in Mental Status No Sepsis Action Taken by Nursing No Action Required Laboratory Data 05/24/24 02:38 05/24/24 02:38 Lab Results 05/24/24 05/24/24 Range/Units 02:38 02:39 WBC 4.01 L (4.8-10.8) K/ul RBC 3.14 L (4.70-6.10) M/uL Hgb 9.6 L (14.0-18.0) g/dl Hct 29.9 L (42.0-52.0) % MCV 95.2 (80.0-100.0) fL MCH 30.6 (25.0-34.0) pg MCHC 32.1 (32.0-36.0) g/dL RDW Std Deviation 59.7 H (36.4-46.3) fL RDW Coeff of Ct 17.2 H (11.5-14.5) % Plt Count 73 L (130-400) K/uL MPV 9.6 (9.4-12.4) fL Sodium 132 L (136-145) mmol/L Potassium 4.0 (3.5-5.1) mmol/L Chloride 96 L (98-107) mmol/L Carbon Dioxide 29 (21-32) mmol/L Anion Gap 7 (3-11) BUN 21 (6-23) mg/dl Creatinine 0.95 (0.6-1.4) mg/dl Est Cr Clr Drug Dosing 58.7 ml/min Est GFR ( Amer) 86.7 ml/min Est GFR (Non-Af Amer) 74.8 ml/min BUN/Creatinine Ratio 22.1 H (10-20) Glucose 103 H (70-99(Fasting)) mg/dl Calcium 8.7 (8.6-10.3) mg/dl Total Bilirubin 1.9 H (0.2-1.0) mg/dl AST 27 (13-39) U/L ALT 14 (7-52) U/L Alkaline Phosphatase 137 H (34-104) U/L Total Protein 4.9 L (6.0-8.3) gm/dl Albumin 3.1 L (3.4-5.0) gm/dl Globulin 1.8 L (2.5-4.0) gm/dl Albumin/Globulin Ratio 1.7 (0.9-2) Lipase 7 L (11-82) U/L Urine Color Dark Yellow Urine Appearance Cloudy A (Clear) Urine pH 5.5 (4.5-7.5) Ur Specific Pisek 1.018 (1.000-1.030) Urine Protein 2+ H (Negative) Urine Glucose (UA) Trace H (Negative) Urine Ketones Trace H (Negative) Urine Blood 3+ H (Negative) Urine Nitrite Negative (Negative) Urine Bilirubin 1+ H (Negative) Urine Urobilinogen Negative (Negative) Ur Leukocyte Esterase 1+ H (Negative) Urine WBC (Auto) 6-10 H (0-5) /hpf Urine RBC (Auto) >20 H (0-2) /hpf U Hyaline Cast (Auto) 11-20 H (0-2) /lpf U Epithel Cells (Auto) 3-5 H (0-2) /hpf Urine Bacteria (Auto) None Seen (None Seen) Calcium Oxalate Crystal Present A (None Prsent) Administered Medications Discontinued Medications Sodium Chloride (Nss) 500 mls @ 999 mls/hr IV .Q31M STA Stop: 05/24/24 02:58 Last Infusion: 05/24/24 03:32 Dose: Infused Documented By: Admin: 05/24/24 02:55 Dose: 999 mls/hr Documented By: [facility] Imaging Data Radiologist's Impression: Abdomen/Pelvis CT 05/24/24 02:29 Exam(s): CT ABDOMEN + PELVIS Without Contrast EXAM: CT Abdomen and Pelvis Without Intravenous Contrast CLINICAL HISTORY: Suprapubic Pain TECHNIQUE: Axial computed tomography images of the abdomen and pelvis without intravenous contrast. CTDI is 12.14 mGy and DLP is 618.01 mGy-cm. Automated exposure control was utilized for the study. A dose lowering technique was utilized adhering to the principles of ALARA. COMPARISON: CT abdomen and pelvis 02/06/2016 FINDINGS: Lung bases: Unremarkable. No mass. No consolidation. ABDOMEN: Liver: Unremarkable. Gallbladder and bile ducts: Cholecystectomy. No ductal dilation. Pancreas: Unremarkable. No ductal dilation. Spleen: Marked splenomegaly. There are wedge-shaped hypodensities in the inferior aspect of the spleen concerning for splenic infarct. Adrenals: A stable 4.3 cm mass of the left adrenal gland is present. Kidneys and ureters: Unremarkable. No obstructing stones. No hydronephrosis. Stomach and bowel: Unremarkable. No obstruction. No mucosal thickening. PELVIS: Appendix: No findings to suggest acute appendicitis. Bladder: A Gil catheter is present. There is thickening of the bladder wall concerning for cystitis. No stones. Reproductive: Enlarged prostate gland. ABDOMEN and PELVIS: Intraperitoneal space: Nonspecific moderate free fluid in the pelvis. No free air. Bones/joints: There are degenerative changes of the spine. No acute fracture. No dislocation. Soft tissues: Unremarkable. Vasculature: Severe atherosclerosis. A 3 cm infrarenal aortic aneurysm is present. Mild atherosclerosis. Lymph nodes: Additional significant periaortic lymphadenopathy measures up to 2.3 cm in short axis. IMPRESSION: 1. There is thickening of the bladder wall concerning for cystitis. 2. Marked splenomegaly. There are wedge-shaped hypodensities in the inferior aspect of the spleen concerning for splenic infarcts. 3. Additional significant periaortic lymphadenopathy measures up to 2.3 cm in short axis. Given these findings, this most likely represents lymphoma. 4. A 3 cm infrarenal aortic aneurysm is present. 5. Enlarged prostate gland. 6. Nonspecific moderate free fluid in the pelvis. 7. A stable 4.3 cm mass of the left adrenal gland is present. Given the stability, no follow-up is needed. Electronically signed by: Millie Huitron MD 05/24/24 03:29 AM Discharge Plan Visit Data Chief Complaint: Catheter Replacement Stated Complaint: GIL CAUSING PAIN ED Provider: Nate Weir Discharge Problem: Ambulatory dysfunction, Chronic lymphocytic leukemia Forms Stand Alone Forms: My [facility] Prescriptions Prescriptions: No Action (DME) Dexcom G7 Bus Person Misc See Rx Instructions .Route Qty: 1 0RF Rx Instructions: use to monitor Blood glucose continuously levothyroxine [Synthroid] 112 mcg tablet 112 mcg PO HS Qty: 90 1RF Rx Instructions: BRAND NAME MEDICALLY NECESSARY Jardiance 10 mg tablet 10 mg PO DAILY Qty: 90 1RF lidocaine [Lidoderm] 5 % adhesive patch,medicated 1 patch topical DAILY PRN (Reason: pain) Qty: 30 0RF Rx Instructions: leave on most painful area for up to 12 hrs fluticasone propionate 50 mcg/actuation spray,suspension 2 spray intranasal DAILY Qty: 1 0RF (DME) pen needle, diabetic [BD Ultra-Fine Elida Pen Needle] 32 gauge x 5/32" needle See Rx Instructions .ROUTE .MEDSUPPLY Qty: 100 3RF Rx Instructions: use as directed to inject once daily insulin degludec [Tresiba FlexTouch U-100] 100 unit/mL (3 mL) insulin pen 10 unit subcut DAILY Qty: 15 5RF (DME) Bedside Commode Misc See Rx Instructions .Route Qty: 1 0RF Rx Instructions: As directed C91.90 (DME) Wheelchair (Manual) Device See Rx Instructions .Route Qty: 1 0RF Rx Instructions: As directed C78.6 oxycodone 30 mg tablet 30 mg PO Q4H PRN (Reason: pain) Qty: 180 0RF sildenafil [Viagra] 100 mg tablet 100 mg PO DAILY PRN (Reason: Erectile Dysfunction) Qty: 10 adapalene 0.3 % gel 1 applic topical DAILY PRN (Reason: .) betamethasone, augmented 0.05 % ointment 1 applic topical BID PRN (Reason: .) Qty: 1 cyanocobalamin (vitamin B-12) 500 mcg tablet,disintegrating 1,000 mcg SL DAILY ketoconazole 2 % cream 1 applic topical BID PRN (Reason: .) Qty: 1 mupirocin 2 % ointment 1 applic topical TID PRN (Reason: .) Qty: 1 nystatin-triamcinolone 100,000-0.1 unit/gram-% ointment 1 applic topical BID PRN (Reason: .) Qty: 1 (DME) lancets [Prodigy Lancets] 28 gauge misc See Dose Instructions .ROUTE .MEDSUPPLY Qty: 25 Rx Instructions: Test 3x daily hydrocortisone valerate 0.2 % cream 1 appln TOP BID PRN (Reason: .) Zeasorb AF 2 % powder 1 appln TOP DAILY PRN (Reason: INGUINAL FOLDS) clonazepam 0.5 mg tablet 0.5 mg PO TID PRN (Reason: anxiety) Qty: 60 0RF igg infu See Rx Instructions IV .COMPLEX Rx Instructions: intravenously monthly; fluconazole 100 mg tablet 100 mg PO DAILY Patient Comments: PRESCRIBED BY ONCOLOGIST-CONFIRMED W/ PT ON 04/07 folic acid 1 mg tablet 1 mg PO DAILY Patient Comments: CONFIRMED W/ PT AND ON PH DC SUMMARY 04/07 omeprazole 20 mg capsule,delayed release(DR/EC) 20 mg PO DAILY Patient Comments: CONFIRMED W/ PT AND ON PH DC SUMMARY 04/07 allopurinol 100 mg tablet 50 mg PO DAILY Patient Comments: PT TAKES 1/2 TAB DAILY. CONFIRMED ON 04/07 prednisone 10 mg tablet See Rx Instructions PO DAILY Qty: 30 0RF Rx Instructions: 4 tabs for 3 days, then 3 tabs for 3 days, then 2 tabs for 3 days, then 1 tab for 3 days. PO DAILY; escitalopram oxalate 5 mg tablet 5 mg PO DAILY Qty: 30 5RF glucagon 3 mg/actuation spray,non-aerosol 3 mg intranasal ONCE Qty: 2 4RF Rx Instructions: To be used in instances of emergency hypoglycemia. milk thistle 500 mg Capsule 1,000 mg PO QAM triamcinolone acetonide 0.025 % Cream 1 applic TOPICAL DAILY PRN (Reason: .) cholecalciferol (vitamin D3) [Vitamin D3] 10 mcg (400 unit) Tablet 10 mcg PO QAM lutein 20 mg Tablet 20 mg PO QAM sulindac 200 mg tablet 100 mg PO BID PRN Referrals Referrals: Dione Steve MD [Primary Care Provider] -
[2024-05-24] MEDS: SODIUM CHLORIDE 0.9% 500 ML IV STA (02:55)
[2024-05-24 03:19] LABS: Hematocrit (blood only) 29.9 % (42.0-52.0); Hemoglobin 9.6 g/dl (14.0-18.0); Mean Corpuscular Hemoglobin 30.6 pg (25.0-34.0); Mean Corpuscular Hgb Conc 32.1 g/dL (32.0-36.0); Mean Corpuscular Volume 95.2 fL (80.0-100.0); Mean Platelet Volume 9.6 fL (9.4-12.4); Platelet Count 73 K/uL (130-400); RDW Coefficient of Variation 17.2 % (11.5-14.5); RDW Standard Deviation 59.7 fL (36.4-46.3); Red Blood Count 3.14 M/uL (4.70-6.10); White Blood Count 4.01 K/ul (4.8-10.8)
--- NOTE | 2024-05-24 03:29 | CT Scan Report ---
Exam(s): CT ABDOMEN + PELVIS Without Contrast EXAM: CT Abdomen and Pelvis Without Intravenous Contrast CLINICAL HISTORY: Suprapubic Pain TECHNIQUE: Axial computed tomography images of the abdomen and pelvis without intravenous contrast. CTDI is 12.14 mGy and DLP is 618.01 mGy-cm. Automated exposure control was utilized for the study. A dose lowering technique was utilized adhering to the principles of ALARA. COMPARISON: CT abdomen and pelvis 02/06/2016 FINDINGS: Lung bases: Unremarkable. No mass. No consolidation. ABDOMEN: Liver: Unremarkable. Gallbladder and bile ducts: Cholecystectomy. No ductal dilation. Pancreas: Unremarkable. No ductal dilation. Spleen: Marked splenomegaly. There are wedge-shaped hypodensities in the inferior aspect of the spleen concerning for splenic infarct. Adrenals: A stable 4.3 cm mass of the left adrenal gland is present. Kidneys and ureters: Unremarkable. No obstructing stones. No hydronephrosis. Stomach and bowel: Unremarkable. No obstruction. No mucosal thickening. PELVIS: Appendix: No findings to suggest acute appendicitis. Bladder: A Maria catheter is present. There is thickening of the bladder wall concerning for cystitis. No stones. Reproductive: Enlarged prostate gland. ABDOMEN and PELVIS: Intraperitoneal space: Nonspecific moderate free fluid in the pelvis. No free air. Bones/joints: There are degenerative changes of the spine. No acute fracture. No dislocation. Soft tissues: Unremarkable. Vasculature: Severe atherosclerosis. A 3 cm infrarenal aortic aneurysm is present. Mild atherosclerosis. Lymph nodes: Additional significant periaortic lymphadenopathy measures up to 2.3 cm in short axis. IMPRESSION: 1. There is thickening of the bladder wall concerning for cystitis. 2. Marked splenomegaly. There are wedge-shaped hypodensities in the inferior aspect of the spleen concerning for splenic infarcts. 3. Additional significant periaortic lymphadenopathy measures up to 2.3 cm in short axis. Given these findings, this most likely represents lymphoma. 4. A 3 cm infrarenal aortic aneurysm is present. 5. Enlarged prostate gland. 6. Nonspecific moderate free fluid in the pelvis. 7. A stable 4.3 cm mass of the left adrenal gland is present. Given the stability, no follow-up is needed. Electronically signed by: Millie Huitron MD 05/24/24 03:29 AM
[2024-05-24 03:30] LABS: Albumin Globulin Ratio 1.7 (0.9-2); Albumin Level 3.1 gm/dl (3.4-5.0); BUN Creatinine Ratio 22.1 (10-20); Bilirubin,Total 1.9 mg/dl (0.2-1.0); Calcium 8.7 mg/dl (8.6-10.3); Creatinine Clr Calc Pharmacy 58.7 ml/min; Est GFR (African American) 86.7 ml/min; Est GFR (Non-African American) 74.8 ml/min; Globulin 1.8 gm/dl (2.5-4.0); Total Protein 4.9 gm/dl (6.0-8.3)
[2024-05-24 03:35] LABS: Appearance Urine Cloudy (Clear); Bacteria Urine Automated None Seen (None Seen); Bilirubin Urine 1+ (Negative); Blood Urine 3+ (Negative); Calcium Oxalate Crystals Urine Present (None Prsent); Color Urine Dark Yellow; Glucose Urine UA Trace (Negative); Ketones Urine Trace (Negative); Leukocyte Esterase Urine 1+ (Negative); Nitrite Urine Negative (Negative); Protein Urine 2+ (Negative); RBC Urine Automated >20 /hpf (0-2); Specific Gravity Urine 1.018 (1.000-1.030); Urobilinogen Urine Negative (Negative); pH Urine 5.5 (4.5-7.5)
--- NOTE | 2024-05-24 04:24 | History & Physical Report ---
Date of Service May 24, 2024 Assessment & Plan (1) Weakness: Plan: 79yo male with CLL presenting with generalized weakness, increasing difficulty performing his ADLs. Currently lives in a home with his friend living upstairs. Likely secondary to progression of CLL. Possible component of dehydration as well. -Admit to medical -Maintain fall precautions -PT/OT evaluation (2) Maria catheter in place: Plan: Patient with pain at the Maria site. Urine is present in bag -Lidocaine jelly ordered for penis to be used as needed for discomfort -Consider voiding trial later today Plan Chronic Medical Conditions: CLL: patient not currently undergoing therapy. He is pancytopenic, chronically ill and cachectic in appearance -Continue Allopurinol -Continue oxycodone PRN pain -Consider Palliative Care consultation Hypothyroidism: chronic. TSH was normal on 02/18/24 at 1.34 -Continue Synthroid GERD: chronic. stable -Continue Omeprazole F/E/N - LR at 125mL/hr x 2L, monitor electrolytes, Regular diet as tolerated with aspiration precautions Ppx - Lovenox 30. Monitor platelets Code - Full per discussion of patient Dispo - Admit to medical History of Present Illness Chief Complaint: suprapubic pain Primary Care Provider: Dione Steve MD Bakari Fischer is an 79yo male with history of thyroid cancer, CLL, CAD and DM presenting with generalized weakness. Patient was admitted to [facility] for generalized weakness from 05/06 - 05/08 and was subsequently discharged with home PT. He reports ongoing weakness. Was seen in the ER yesterday 05/23/24 with report of inability to urinate. He had a Maria catheter placed and was subsequently discharged home. Patient returns today with complaint of pain at the Maria as well as suprapubic discomfort. He again endorses ongoing weakness and difficulty completing his ADLs. IN the ER he is afebrile, HD stable ER Course: NSS x 500mL Allergies Allergy/AdvReac Type Severity Reaction Status Date / Time diphenhydramine Allergy Severe Hypotension,Sweating, Verified 05/12/24 15:16 [From Benadryl] Shaking adhesive tape Allergy Unknown Unknown Verified 05/12/24 15:16 acetaminophen [From Tylenol] Allergy Unknown Verified 05/12/24 15:16 clavulanic acid Allergy Unknown Verified 05/12/24 15:16 [From Augmentin] desflurane Allergy Unknown Verified 05/12/24 15:16 enflurane Allergy Unknown Verified 05/12/24 15:16 ether Allergy Unknown Verified 05/12/24 15:16 halothane Allergy Unknown Verified 05/12/24 15:16 hydrocortisone Allergy Unknown Verified 05/12/24 15:16 isoflurane Allergy Unknown Verified 05/12/24 15:16 methoxyflurane Allergy Unknown Verified 05/12/24 15:16 nickel Allergy Unknown Verified 05/12/24 15:16 Penicillins Allergy Unknown Verified 05/12/24 15:16 sevoflurane Allergy Unknown Verified 05/12/24 15:16 succinylcholine Allergy Unknown Verified 05/12/24 15:16 varenicline [From Chantix] Allergy Unknown Verified 05/12/24 15:16 Acalabrutinib Maleate Allergy "It Uncoded 05/12/24 15:16 destroyed my immunity cells." pepsi AdvReac Unknown leg Uncoded 05/12/24 15:16 cramping Doxycycline AdvReac Nausea, Uncoded 05/12/24 15:16 Vomitting Home Medications Medication Instructions Recorded Confirmed Type hydrocortisone valerate 0.2 % 1 appln topical BID PRN . 03/23/19 04/25/24 History topical cream lancets 28 gauge (Prodigy Lancets) #25 ea 03/23/19 04/25/24 History sildenafil 100 mg tablet (Viagra) 100 mg PO DAILY PRN Erectile 03/23/19 04/25/24 History Dysfunction #10 tabs miconazole nitrate 2 % topical 1 appln topical DAILY PRN INGUINAL 04/15/19 04/25/24 History powder (Zeasorb AF) FOLDS adapalene 0.3 % topical gel 1 applic topical DAILY PRN . 04/24/21 05/12/24 History betamethasone, augmented 0.05 % 1 applic topical BID PRN . #1 g 04/24/21 04/25/24 History topical ointment cyanocobalamin (vitamin B-12) 500 1,000 mcg sublingual DAILY 04/24/21 05/24/24 History mcg disintegrating tablet,sublingual ketoconazole 2 % topical cream 1 applic topical BID PRN . #1 g 04/24/21 04/25/24 History mupirocin 2 % topical ointment 1 applic topical TID PRN . #1 g 04/24/21 04/25/24 History nystatin-triamcinolone 100,000 1 applic topical BID PRN . #1 g 04/24/21 04/25/24 History unit/gram-0.1 % topical ointment cholecalciferol (vitamin D3) 10 10 mcg PO QAM 05/27/21 05/24/24 History mcg (400 unit) tablet (Vitamin D3) lutein 20 mg tablet 20 mg PO QAM 05/27/21 04/25/24 History milk thistle 500 mg capsule 1,000 mg PO QAM 05/27/21 04/25/24 History triamcinolone acetonide 0.025 % 1 applic topical DAILY PRN . 05/27/21 04/25/24 History topical cream sulindac 200 mg tablet 100 mg PO BID PRN 06/03/22 04/25/24 History clonazepam 0.5 mg tablet 0.5 mg PO TID PRN anxiety #60 tabs 12/21/22 05/24/24 Rx blood-glucose meter,continuous #1 ea 04/19/23 04/25/24 Rx (Dexcom G7 [employer]) igg infu See Rx Instructions IV .COMPLEX 09/27/23 04/25/24 History Synthroid 112 mcg tablet 112 mcg PO HS #90 tabs 10/11/23 05/24/24 Rx (levothyroxine) empagliflozin 10 mg tablet 10 mg PO DAILY #90 tabs 02/15/24 04/25/24 Rx (Jardiance) lidocaine 5 % topical patch 1 patch topical DAILY PRN pain 03/17/24 05/24/24 Rx (Lidoderm) #30 ea fluticasone propionate 50 2 spray intranasal DAILY #1 btl 03/20/24 05/24/24 Rx mcg/actuation nasal spray,suspension allopurinol 100 mg tablet 50 mg PO DAILY 04/07/24 05/24/24 History fluconazole 100 mg tablet 100 mg PO DAILY 04/07/24 04/25/24 History folic acid 1 mg tablet 1 mg PO DAILY 04/07/24 04/25/24 History omeprazole 20 mg capsule,delayed 20 mg PO DAILY 04/07/24 05/24/24 History release escitalopram oxalate 5 mg tablet 5 mg PO DAILY #30 tabs 04/13/24 04/25/24 Rx prednisone 10 mg tablet See Rx Instructions PO DAILY #30 04/13/24 04/25/24 Rx tabs insulin degludec 100 unit/mL (3 10 unit (0.1 mL) subcut DAILY #15 04/21/24 04/25/24 Rx mL) subcutaneous pen (Tresiba mL FlexTouch U-100 insulin) pen needle, diabetic 32 gauge x #100 ea 04/21/24 04/25/24 Rx 5/32" (BD Ultra-Fine Elida Pen Needle) glucagon 3 mg/actuation nasal spray 3 mg intranasal ONCE #2 ea 04/25/24 04/25/24 Rx Bedside Commode #1 ea 05/15/24 Rx Wheelchair (Manual) #1 ea 05/18/24 Rx oxycodone 30 mg tablet 30 mg PO Q4H PRN pain #180 tabs 05/18/24 05/24/24 Rx Past Med/Surg History Problem List (Updated 05/24/24 @ 04:18 by Radha Garcia DO) Maria catheter in place Weakness Chronic lymphocytic leukemia (Acute) Ambulatory dysfunction (Acute) Acute urinary retention (Acute) Abdominal aortic aneurysm 3.4 cm on PET scan (09/28/23) Peritoneal carcinomatosis Diabetic retinopathy associated with controlled type 2 diabetes mellitus History of thyroid cancer (Chronic) Injury of parathyroid gland Statin myopathy Complete left bundle branch block (LBBB) (Acute) Thrombocytopenia (Acute) History of thyroidectomy Hypothyroidism, postablative Diabetes type 2, controlled Gastroparesis BPH with obstruction/lower urinary tract symptoms Fatty liver (Chronic) CLL (chronic lymphocytic leukemia) (Chronic) Chronic 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 (Chronic) ASCVD (arteriosclerotic cardiovascular disease) (Chronic) Dyslipidemia Current smoker (Chronic) Erectile dysfunction (Chronic) Lumbar degenerative disc disease (Chronic) Malignant hyperthermia susceptibility (Chronic) Poor balance (Chronic) Vitamin B12 deficiency (Chronic) Vitamin D deficiency (Chronic) Medical History 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 Surgical History S/P AAA (abdominal aortic aneurysm) repair History of cholecystectomy History of cataract surgery Family History Mother Diabetes Myocardial infarction Father Stroke Myocardial infarction Sister Alzheimer disease Breast cancer Denies family history of Ovarian cancer Prostate cancer Colorectal cancer Social History Smoking Status: Current every day smoker Tobacco Type: Cigarettes Age Started Using Tobacco: 16; packs per day: 0.5; Cigarettes Per Day: 1 pack lasts 2 days; Second Hand Exposure: No; Do You Dip or Chew Tobacco: No; Hx Alcohol Use: No Hx Substance Use: No Preferred Language: Yi Communication Ability: Effective Visual Impairment: Limited Hearing Ability: Normal House Rn Required: No Beliefs That Will Affect Care: None marital status: Single Current Living Situation: Alone current occupational status: retired current occupation: 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 Feels Safe at Home: Yes Childhood Exposure to Second-Hand Smoke: Yes Diet: regular Dental Care, Regularly: Yes Physical Activity Frequency: Does not Exercise Seatbelt Use: always Sunscreen Use: No Assistive Devices: Cane, Denture - Upper and Glasses Review of Systems Review of Systems: All systems reviewed & are unremarkable except as noted in HPI & below Physical Exam Physical Exam: General: patient chronically ill in appearance, cachectic with temporal wasting Skin: dry, no rash HEENT: NC/AT, PERRL, EOMI, anicteric sclera, conjunctiva without injection, external ear normal to inspection and nontender, nares patent, dry mucus membranes, dentition intact, no oropharyngeal lesions, neck supple, trachea midline, no LAD, no thyromegaly, no JVD Heart: +S1/S2, regular, no m/r/g Lungs: equal air entry bilaterally, no rales/rhonchi/wheezes Abd: +BS, soft, NT/ND, no masses/organomegaly/ascites Ext: warm, 2+ pulses in UE/LE bilaterally, no clubbing/cyanosis or edema Neuro: nonfocal, patient AA&O x 4, speech intact, no facial droop, moving all extremities on command with equal strength 5/5 Results & Data Results & Data Vital Signs (Past 12 Hours) Vital Signs Temp Pulse Resp BP Pulse Ox O2 Del Method 05/24/24 04:00 72 19 112/54 L 97 Room Air 05/24/24 03:30 78 17 110/46 L 94 Room Air 05/24/24 03:00 73 17 105/48 L 94 Room Air 05/24/24 02:54 77 05/24/24 02:42 97 Room Air 05/24/24 02:25 36.7 C 80 17 110/56 L 95 Room Air Laboratory Results Laboratory Results WBC 4.01 K/ul (4.8-10.8) L 05/24/24 02:38 RBC 3.14 M/uL (4.70-6.10) L 05/24/24 02:38 Hgb 9.6 g/dl (14.0-18.0) L 05/24/24 02:38 Hct 29.9 % (42.0-52.0) L 05/24/24 02:38 MCV 95.2 fL (80.0-100.0) 05/24/24 02:38 MCH 30.6 pg (25.0-34.0) 05/24/24 02:38 MCHC 32.1 g/dL (32.0-36.0) 05/24/24 02:38 RDW Std Deviation 59.7 fL (36.4-46.3) H 05/24/24 02:[address] 17.2 % (11.5-14.5) H 05/24/24 02:38 Plt Count 73 K/uL (130-400) L 05/24/24 02:38 MPV 9.6 fL (9.4-12.4) 05/24/24 02:38 Sodium 132 mmol/L (136-145) L 05/24/24 02:38 Potassium 4.0 mmol/L (3.5-5.1) 05/24/24 02:38 Chloride 96 mmol/L (98-107) L 05/24/24 02:38 Carbon Dioxide 29 mmol/L (21-32) 05/24/24 02:38 Anion Gap 7 (3-11) 05/24/24 02:38 BUN 21 mg/dl (6-23) 05/24/24 02:38 Creatinine 0.95 mg/dl (0.6-1.4) 05/24/24 02:38 Est Cr Clr Drug Dosing 58.7 ml/min 05/24/24 02:38 Est GFR ( Amer) 86.7 ml/min 05/24/24 02:38 Est GFR (Non-Af Amer) 74.8 ml/min 05/24/24 02:38 BUN/Creatinine Ratio 22.1 (10-20) H 05/24/24 02:38 Glucose 103 mg/dl (70-99(Fasting)) H 05/24/24 02:38 Calcium 8.7 mg/dl (8.6-10.3) 05/24/24 02:38 Total Bilirubin 1.9 mg/dl (0.2-1.0) H 05/24/24 02:38 AST 27 U/L (13-39) 05/24/24 02:38 ALT 14 U/L (7-52) 05/24/24 02:38 Alkaline Phosphatase 137 U/L (34-104) H 05/24/24 02:38 Total Protein 4.9 gm/dl (6.0-8.3) L 05/24/24 02:38 Albumin 3.1 gm/dl (3.4-5.0) L 05/24/24 02:38 Globulin 1.8 gm/dl (2.5-4.0) L 05/24/24 02:38 Albumin/Globulin Ratio 1.7 (0.9-2) 05/24/24 02:38 Lipase 7 U/L (11-82) L 05/24/24 02:38 Urine Color Dark Yellow 05/24/24 02:39 Urine Appearance Cloudy (Clear) A 05/24/24 02:39 Urine pH 5.5 (4.5-7.5) 05/24/24 02:39 Ur Specific Pierce 1.018 (1.000-1.030) 05/24/24 02:39 Urine Protein 2+ (Negative) H 05/24/24 02:39 Urine Glucose (UA) Trace (Negative) H 05/24/24 02:39 Urine Ketones Trace (Negative) H 05/24/24 02:39 Urine Blood 3+ (Negative) H 05/24/24 02:39 Urine Nitrite Negative (Negative) 05/24/24 02:39 Urine Bilirubin 1+ (Negative) H 05/24/24 02:39 Urine Urobilinogen Negative (Negative) 05/24/24 02:39 Ur Leukocyte Esterase 1+ (Negative) H 05/24/24 02:39 Urine WBC (Auto) 6-10 /hpf (0-5) H 05/24/24 02:39 Urine RBC (Auto) >20 /hpf (0-2) H 05/24/24 02:39 U Hyaline Cast (Auto) 11-20 /lpf (0-2) H 05/24/24 02:39 U Epithel Cells (Auto) 3-5 /hpf (0-2) H 05/24/24 02:39 Urine Bacteria (Auto) None Seen (None Seen) 05/24/24 02:39 Calcium Oxalate Crystal Present (None Prsent) A 05/24/24 02:39 Impressions Abdomen/Pelvis CT 05/24/24 02:29 Exam(s): CT ABDOMEN + PELVIS Without Contrast EXAM: CT Abdomen and Pelvis Without Intravenous Contrast CLINICAL HISTORY: Suprapubic Pain TECHNIQUE: Axial computed tomography images of the abdomen and pelvis without intravenous contrast. CTDI is 12.14 mGy and DLP is 618.01 mGy-cm. Automated exposure control was utilized for the study. A dose lowering technique was utilized adhering to the principles of ALARA. COMPARISON: CT abdomen and pelvis 02/06/2016 FINDINGS: Lung bases: Unremarkable. No mass. No consolidation. ABDOMEN: Liver: Unremarkable. Gallbladder and bile ducts: Cholecystectomy. No ductal dilation. Pancreas: Unremarkable. No ductal dilation. Spleen: Marked splenomegaly. There are wedge-shaped hypodensities in the inferior aspect of the spleen concerning for splenic infarct. Adrenals: A stable 4.3 cm mass of the left adrenal gland is present. Kidneys and ureters: Unremarkable. No obstructing stones. No hydronephrosis. Stomach and bowel: Unremarkable. No obstruction. No mucosal thickening. PELVIS: Appendix: No findings to suggest acute appendicitis. Bladder: A Maria catheter is present. There is thickening of the bladder wall concerning for cystitis. No stones. Reproductive: Enlarged prostate gland. ABDOMEN and PELVIS: Intraperitoneal space: Nonspecific moderate free fluid in the pelvis. No free air. Bones/joints: There are degenerative changes of the spine. No acute fracture. No dislocation. Soft tissues: Unremarkable. Vasculature: Severe atherosclerosis. A 3 cm infrarenal aortic aneurysm is present. Mild atherosclerosis. Lymph nodes: Additional significant periaortic lymphadenopathy measures up to 2.3 cm in short axis. IMPRESSION: 1. There is thickening of the bladder wall concerning for cystitis. 2. Marked splenomegaly. There are wedge-shaped hypodensities in the inferior aspect of the spleen concerning for splenic infarcts. 3. Additional significant periaortic lymphadenopathy measures up to 2.3 cm in short axis. Given these findings, this most likely represents lymphoma. 4. A 3 cm infrarenal aortic aneurysm is present. 5. Enlarged prostate gland. 6. Nonspecific moderate free fluid in the pelvis. 7. A stable 4.3 cm mass of the left adrenal gland is present. Given the stability, no follow-up is needed. Electronically signed by: Millie Huitron MD 05/24/24 03:29 AM PG Care Time/CCT Total # of Minutes Spent Total Time Spent with Patient: Total time spent is greater than 50% in coordination of care (as documented) at patient's floor/unit and/or counseling patient: Coding Level of Care Code 80665 INT INP/OBS CARE 2/55MIN Diagnoses Weakness R53.[address] Z97.8
[2024-05-24 04:32] LABS: Basophils # (auto) 0.01 K/uL (0.00-0.20); Basophils % (auto) 0.2 %; Eosinophils # (auto) 0.02 K/uL (0.00-0.50); Eosinophils % (auto) 0.5 %; Immature Granulocytes # (auto) 0.03 K/uL (0.01-0.20); Immature Granulocytes % (auto) 0.7 %; Lymphocytes # (auto) 1.96 K/uL (1.20-3.40); Lymphocytes % (auto) 48.9 %; Monocytes # (auto) 0.23 K/uL (0.11-0.59); Monocytes % (auto) 5.7 %; Neutrophils # (auto) 1.76 K/uL (1.40-6.50); RBC Morphology Unremarkable
[2024-05-24] MEDS ORDERED: ONDANSETRON INJ 2 MG/ML 2 ML VIAL IV PRN (04:36)
[2024-05-24] MEDS ORDERED: LIDOCAINE 5% 1 PATCH TD PRN (04:36)
[2024-05-24] MEDS ORDERED: LIDOCAINE 2% JELLY 5 ML TUBE EXT PRN (04:36)
[2024-05-24] MEDS: LACTATED RINGER'S 1,000 ML IV SCH (05:16)
[2024-05-24] MEDS: oxyCODONE HCL IR 30 MG TAB (IMMEDIATE RELEASE) PO PRN (08:20)
[2024-05-24] MEDS: allopurinoL 100 MG TAB PO SCH (08:21)
[2024-05-24] MEDS: CHOLECALCIFEROL 10 MCG (400 UNITS) TAB PO SCH (08:21)
[2024-05-24] MEDS: PANTOprazole 40 MG TAB PO SCH (08:22)
[2024-05-24] MEDS: ENOXAPARIN INJ 30 MG/0.3 ML SYR SQ SCH (08:22)
[2024-05-24] MEDS: SODIUM CHLORIDE 0.9% 1,000 ML IV SCH (10:07)
--- NOTE | 2024-05-24 10:28 | Communication Note ---
Date of Service: May 24, 2024 (1) Weakness: 79yo male with CLL presenting with generalized weakness, increasing difficulty performing his ADLs. Currently lives in a home with his friend living upstairs. Likely secondary to progression of CLL. Possible component of dehydration as well. severe malnutrition -Admit to medical -Maintain fall precautions -PT/OT evaluation -palliative care consulted, appreciate recommendations per palliative care, patient requested oncology to be consulted. Appreciate their recommendations as well. (2) Maria catheter in place: Patient with pain at the Maria site. Urine is present in bag -Lidocaine jelly ordered for penis to be used as needed for discomfort -Urine culture pending -IV Rocephin added 05/24 Plan Chronic Medical Conditions: CLL: patient not currently undergoing therapy. He is pancytopenic, chronically ill and cachectic in appearance -Continue Allopurinol -Continue oxycodone PRN pain Hypothyroidism: chronic. TSH was normal on 02/18/24 at 1.34 -Continue Synthroid GERD: chronic. stable -Continue Omeprazole Diet: regular Ppx - Lovenox 30 Code - Full Dispo - Admit to medical
[2024-05-24] MEDS: cefTRIAXone SODIUM 2,000 MG/50 ML BAG IV SCH (12:11)
--- NOTE | 2024-05-24 13:36 | Oncology Consultation ---
Date of Consultation May 24, 2024 Assessment & Plan (1) Chronic lymphocytic leukemia: (2) Acute urinary retention: Plan Patient with longstanding history of CLL who presented with suprapubic pain after Maria catheter placement. Hematology was consulted to discuss treatment options in the setting of CLL. Labs significant for pancytopenia likely due to severe splenomegaly. -Based on severe splenomegaly, patient would definitely benefit from treatment for CLL. Given current performance status and poor tolerance to BTK inhibitor, may be worthwhile to trial treat with milder agent such as monoclonal antibody like rituximab/obinutuzumab since he indicates that he previously responded to MAB. Ideally, would consider addition of a BTK inhibitor however per his history, declining performance status occurred after receiving BTK inhibitor due to side effects. Other options include venetoclax or PI3K inhibitor -Due to distance of travel, he will not be able to come here for treatment. Would recommend he continue close follow-up with his die inspector at [facility] to discuss these options. If he decides not to receive further systemic therapy, could consider supportive care. Thank you for this consult. Will sign off at this time. Please feel free to call if you have any other questions History of Present Illness Reason for Consultation: CLL Attending Physician: Fernandez Clark MD History of Present Illness 79-year-old gentleman with longstanding history of CLL for which he indicates was effective for treating his CLL. He was previously on obinutuzumab and was most recently on BTK inhibitor with Calquence. Patient follows with hematology at [facility]. Presented to the ER at [facility] with suprapubic pain following Maria catheter placement. CT abdomen and pelvis on 05/24/2024 revealed thickening of the bladder wall concerning for cystitis, marked splenomegaly with wedge-shaped hypodensities in the inferior aspect of the spleen concerning for splenic infarcts, significant periaortic lymphadenopathy measuring up to 2.3 cm, enlarged prostate and stable 4.3 cm mass of the left adrenal gland. He states that he was previously on obinutuzumab which was recently switched to Calquence. He states that performance status significantly declined after he was switched to BTK inhibitor. Endorses weight loss. Allergies Allergy/AdvReac Type Severity Reaction Status Date / Time diphenhydramine Allergy Severe Hypotension,Sweating, Verified 05/12/24 15:16 [From Benadryl] Shaking adhesive tape Allergy Unknown Unknown Verified 05/12/24 15:16 acetaminophen [From Tylenol] Allergy Unknown Verified 05/12/24 15:16 clavulanic acid Allergy Unknown Verified 05/12/24 15:16 [From Augmentin] desflurane Allergy Unknown Verified 05/12/24 15:16 enflurane Allergy Unknown Verified 05/12/24 15:16 ether Allergy Unknown Verified 05/12/24 15:16 halothane Allergy Unknown Verified 05/12/24 15:16 hydrocortisone Allergy Unknown Verified 05/12/24 15:16 isoflurane Allergy Unknown Verified 05/12/24 15:16 methoxyflurane Allergy Unknown Verified 05/12/24 15:16 nickel Allergy Unknown Verified 05/12/24 15:16 Penicillins Allergy Unknown Verified 05/12/24 15:16 sevoflurane Allergy Unknown Verified 05/12/24 15:16 succinylcholine Allergy Unknown Verified 05/12/24 15:16 varenicline [From Chantix] Allergy Unknown Verified 05/12/24 15:16 acalabrutinib AdvReac Unknown "it Verified 05/24/24 04:40 destroyed my immunity cells" doxycycline AdvReac Nausea Verified 05/24/24 04:40 Home Medications Medication Instructions Recorded Confirmed Type hydrocortisone valerate 0.2 % 1 appln topical BID PRN . 03/23/19 04/25/24 History topical cream lancets 28 gauge (Prodigy Lancets) #25 ea 03/23/19 04/25/24 History sildenafil 100 mg tablet (Viagra) 100 mg PO DAILY PRN Erectile 03/23/19 04/25/24 History Dysfunction #10 tabs miconazole nitrate 2 % topical 1 appln topical DAILY PRN INGUINAL 04/15/19 04/25/24 History powder (Zeasorb AF) FOLDS adapalene 0.3 % topical gel 1 applic topical DAILY PRN . 04/24/21 05/12/24 History betamethasone, augmented 0.05 % 1 applic topical BID PRN . #1 g 04/24/21 04/25/24 History topical ointment cyanocobalamin (vitamin B-12) 500 1,000 mcg sublingual DAILY 04/24/21 05/24/24 History mcg disintegrating tablet,sublingual ketoconazole 2 % topical cream 1 applic topical BID PRN . #1 g 04/24/21 04/25/24 History mupirocin 2 % topical ointment 1 applic topical TID PRN . #1 g 04/24/21 04/25/24 History nystatin-triamcinolone 100,000 1 applic topical BID PRN . #1 g 04/24/21 04/25/24 History unit/gram-0.1 % topical ointment cholecalciferol (vitamin D3) 10 10 mcg PO QAM 05/27/21 05/24/24 History mcg (400 unit) tablet (Vitamin D3) lutein 20 mg tablet 20 mg PO QAM 05/27/21 04/25/24 History milk thistle 500 mg capsule 1,000 mg PO QAM 05/27/21 04/25/24 History triamcinolone acetonide 0.025 % 1 applic topical DAILY PRN . 05/27/21 04/25/24 History topical cream sulindac 200 mg tablet 100 mg PO BID PRN 06/03/22 04/25/24 History clonazepam 0.5 mg tablet 0.5 mg PO TID PRN anxiety #60 tabs 12/21/22 05/24/24 Rx blood-glucose meter,continuous #1 ea 04/19/23 04/25/24 Rx (Dexcom G7 Comb Capper) igg infu See Rx Instructions IV .COMPLEX 09/27/23 04/25/24 History Synthroid 112 mcg tablet 112 mcg PO HS #90 tabs 10/11/23 05/24/24 Rx (levothyroxine) empagliflozin 10 mg tablet 10 mg PO DAILY #90 tabs 02/15/24 04/25/24 Rx (Jardiance) lidocaine 5 % topical patch 1 patch topical DAILY PRN pain 03/17/24 05/24/24 Rx (Lidoderm) #30 ea fluticasone propionate 50 2 spray intranasal DAILY #1 btl 03/20/24 05/24/24 Rx mcg/actuation nasal spray,suspension allopurinol 100 mg tablet 50 mg PO DAILY 04/07/24 05/24/24 History fluconazole 100 mg tablet 100 mg PO DAILY 04/07/24 04/25/24 History folic acid 1 mg tablet 1 mg PO DAILY 04/07/24 04/25/24 History omeprazole 20 mg capsule,delayed 20 mg PO DAILY 04/07/24 05/24/24 History release escitalopram oxalate 5 mg tablet 5 mg PO DAILY #30 tabs 04/13/24 04/25/24 Rx prednisone 10 mg tablet See Rx Instructions PO DAILY #30 04/13/24 04/25/24 Rx tabs insulin degludec 100 unit/mL (3 10 unit (0.1 mL) subcut DAILY #15 04/21/24 04/25/24 Rx mL) subcutaneous pen (Tresiba mL FlexTouch U-100 insulin) pen needle, diabetic 32 gauge x #100 ea 04/21/24 04/25/24 Rx 5/32" (BD Ultra-Fine Elida Pen Needle) glucagon 3 mg/actuation nasal spray 3 mg intranasal ONCE #2 ea 04/25/24 04/25/24 Rx Bedside Commode #1 ea 05/15/24 Rx Wheelchair (Manual) #1 ea 05/18/24 Rx oxycodone 30 mg tablet 30 mg PO Q4H PRN pain #180 tabs 05/18/24 05/24/24 Rx Patient History Medical History 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 Surgical History S/P AAA (abdominal aortic aneurysm) repair History of cholecystectomy History of cataract surgery Family History Mother Diabetes Myocardial infarction Father Stroke Myocardial infarction Sister Alzheimer disease Breast cancer Denies family history of Ovarian cancer Prostate cancer Colorectal cancer Social History Smoking Status: Current every day smoker Tobacco Type: Cigarettes Age Started Using Tobacco: 16; packs per day: 0.5; Cigarettes Per Day: 1 pack lasts 2 days; Second Hand Exposure: No; Do You Dip or Chew Tobacco: No; Hx Alcohol Use: No Hx Substance Use: No Preferred Language: Serbian Communication Ability: Effective Visual Impairment: Limited Hearing Ability: Normal Transport Medic Required: No Beliefs That Will Affect Care: None marital status: Single Current Living Situation: Alone Current Living Situation Comment: friend lives upstairs current occupational status: retired 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 Feels Safe at Home: Yes Childhood Exposure to Second-Hand Smoke: Yes Diet: regular Dental Care, Regularly: Yes Physical Activity Frequency: Does not Exercise Seatbelt Use: always Sunscreen Use: No Assistive Devices: Walker and Wheelchair Results & Data Vital Signs (Past 12 Hours) Vital Signs Temp Pulse Pulse Resp BP BP Pulse Ox 05/24/24 07:41 36.5 C 75 18 104/52 L 96 05/24/24 04:36 36.4 C L 70 16 112/61 95 05/24/24 04:15 05/24/24 04:12 70 18 97 05/24/24 04:00 112/54 L 05/24/24 04:00 72 19 112/54 L 97 05/24/24 03:30 78 17 110/46 L 94 05/24/24 03:00 73 17 105/48 L 94 05/24/24 02:54 77 05/24/24 02:42 97 05/24/24 02:25 36.7 C 80 17 110/56 L 95 O2 Del Method 05/24/24 07:41 Room Air 05/24/24 04:36 Room Air 05/24/24 04:15 Room Air 05/24/24 04:12 05/24/24 04:00 05/24/24 04:00 Room Air 05/24/24 03:30 Room Air 05/24/24 03:00 Room Air 05/24/24 02:54 05/24/24 02:42 Room Air 05/24/24 02:25 Room Air
[2024-05-24] MEDS: LEVOTHYROXINE SODIUM 112 MCG TABLET PO SCH (20:53)
[2024-05-24 21:06] LABS: Folate (Folic Acid),Ser orPlas 15.28 ng/ml (>5.38)
--- NOTE | 2024-05-24 22:53 | Palliative Care Consultation ---
Date of Consultation May 24, 2024 Assessment & Plan (1) Suprapubic pain: CT abd/pel this admission revealed thickening of the bladder wall concerning for cystitis, marked splenomegaly w/wedge-shaped hypodensities concerning for splenic infarcts, significant periaortic lymphadenopathy measures up to 2.3 cm i n short axis c/w lymphoma. Leavitt placed (2) Weakness generalized: (3) Cancer related pain: improved with leavitt (4) Advanced care planning/counseling discussion: I had a 40min face to face ACP with pt at bedside His primary concern is not knowing the status of his cancer and treatment options and he feels he still wants to pursue CLL treatment but wants to revisit prior therapy and has not really had a clear discussion about why it may not be an option at this time. We discussed what might help him feel more informed and he indicated he would like to speak with oncology this admission for second opinion. He is unsure about not wanting more Rx, feels that he has been doing well on prior Rx so would be open to trying more if options are there but also notes he is needing more help and while he would like t be in his own home with [employer] support, recognizes this is likely not possible and he does not have means for OOP private caregivers. He states he does not have other caregiver options \\We discussed SNF rehab then eval for ?return home with VNS /?area agency support vs [place] [facility] care. Advised this is a "wait and see how things go" xena reyes and there can be no guarantees for outcome. I reviewed my worry that his age, growing frailty and declining performance status may be indicators that cancer Rx is no longer going to offer a [place] [facility] highly effective benefit. We agreed to reconvene discussion after onc eval. We discussed code status briefly as he did not want to pursue the conversation other than to to say he would accept cpr if he is getting cancer treatment but if time is short then he would not want to live on artificial means fo support. (5) Palliative care by specialist: Introduced Palliative Medicine and explained our role in patient's care. Patient and/or family were receptive to palliative services for goals of care discussions. Reviewed we are different from hospice, a home health nurse visiting service. Plan As above Thank you for allowing us to participate in the ongoing care of this patient. Please page with any additional concerns. 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 he then returned a few hours later c/o suprapubic pain and continued weakness, this time agreeing to admission,. OSH data referring to ? CLL progression patient unable to give a precise hx but speaks in broader terms about seeing onc at [facility] then transferred to local onc in [place] and when that provider became unavailable, transferred to [facility] oncology but he cannot recall the names of any of his onc providers. Mr Fischer states he has been unhappy with changes to his chemo regimen and feels he was taken off a drug, Gazyva, that worked well for him. He asks why this cannot be restarted. He feels he does not have good rapport with new OSH onc provider, "they don't let me speak" Admits to weakness but feels this is bc of cancer treatment changes Cannot tell me what is the status of his cancer, has it progressed, were there new complications He reports no current c/o pain weakness unchanged appetite stable denies n/v/d, occ constipation would like help at home for ADLs and caregiving, does not have family or other caregiver support Allergies Allergy/AdvReac Type Severity Reaction Status Date / Time diphenhydramine Allergy Severe Hypotension,Sweating, Verified 05/12/24 15:16 [From Benadryl] Shaking adhesive tape Allergy Unknown Unknown Verified 05/12/24 15:16 acetaminophen [From Tylenol] Allergy Unknown Verified 05/12/24 15:16 clavulanic acid Allergy Unknown Verified 05/12/24 15:16 [From Augmentin] desflurane Allergy Unknown Verified 05/12/24 15:16 enflurane Allergy Unknown Verified 05/12/24 15:16 ether Allergy Unknown Verified 05/12/24 15:16 halothane Allergy Unknown Verified 05/12/24 15:16 hydrocortisone Allergy Unknown Verified 05/12/24 15:16 isoflurane Allergy Unknown Verified 05/12/24 15:16 methoxyflurane Allergy Unknown Verified 05/12/24 15:16 nickel Allergy Unknown Verified 05/12/24 15:16 Penicillins Allergy Unknown Verified 05/12/24 15:16 sevoflurane Allergy Unknown Verified 05/12/24 15:16 succinylcholine Allergy Unknown Verified 05/12/24 15:16 varenicline [From Chantix] Allergy Unknown Verified 05/12/24 15:16 acalabrutinib AdvReac Unknown "it Verified 05/24/24 04:40 destroyed my immunity cells" doxycycline AdvReac Nausea Verified 05/24/24 04:40 Home Medications Medication Instructions Recorded Confirmed Type hydrocortisone valerate 0.2 % 1 appln topical BID PRN . 03/23/19 04/25/24 History topical cream lancets 28 gauge (Prodigy Lancets) #25 ea 03/23/19 04/25/24 History sildenafil 100 mg tablet (Viagra) 100 mg PO DAILY PRN Erectile 03/23/19 04/25/24 History Dysfunction #10 tabs miconazole nitrate 2 % topical 1 appln topical DAILY PRN INGUINAL 04/15/19 04/25/24 History powder (Zeasorb AF) FOLDS adapalene 0.3 % topical gel 1 applic topical DAILY PRN . 04/24/21 05/12/24 History betamethasone, augmented 0.05 % 1 applic topical BID PRN . #1 g 04/24/21 04/25/24 History topical ointment cyanocobalamin (vitamin B-12) 500 1,000 mcg sublingual DAILY 04/24/21 05/24/24 History mcg disintegrating tablet,sublingual ketoconazole 2 % topical cream 1 applic topical BID PRN . #1 g 04/24/21 04/25/24 History mupirocin 2 % topical ointment 1 applic topical TID PRN . #1 g 04/24/21 04/25/24 History nystatin-triamcinolone 100,000 1 applic topical BID PRN . #1 g 04/24/21 04/25/24 History unit/gram-0.1 % topical ointment cholecalciferol (vitamin D3) 10 10 mcg PO QAM 05/27/21 05/24/24 History mcg (400 unit) tablet (Vitamin D3) lutein 20 mg tablet 20 mg PO QAM 05/27/21 04/25/24 History milk thistle 500 mg capsule 1,000 mg PO QAM 05/27/21 04/25/24 History triamcinolone acetonide 0.025 % 1 applic topical DAILY PRN . 05/27/21 04/25/24 History topical cream sulindac 200 mg tablet 100 mg PO BID PRN 06/03/22 04/25/24 History clonazepam 0.5 mg tablet 0.5 mg PO TID PRN anxiety #60 tabs 12/21/22 05/24/24 Rx blood-glucose meter,continuous #1 ea 04/19/23 04/25/24 Rx (Dexcom G7 Care Manager Cna) igg infu See Rx Instructions IV .COMPLEX 09/27/23 04/25/24 History Synthroid 112 mcg tablet 112 mcg PO HS #90 tabs 10/11/23 05/24/24 Rx (levothyroxine) empagliflozin 10 mg tablet 10 mg PO DAILY #90 tabs 02/15/24 04/25/24 Rx (Jardiance) lidocaine 5 % topical patch 1 patch topical DAILY PRN pain 03/17/24 05/24/24 Rx (Lidoderm) #30 ea fluticasone propionate 50 2 spray intranasal DAILY #1 btl 03/20/24 05/24/24 Rx mcg/actuation nasal spray,suspension allopurinol 100 mg tablet 50 mg PO DAILY 04/07/24 05/24/24 History fluconazole 100 mg tablet 100 mg PO DAILY 04/07/24 04/25/24 History folic acid 1 mg tablet 1 mg PO DAILY 04/07/24 04/25/24 History omeprazole 20 mg capsule,delayed 20 mg PO DAILY 04/07/24 05/24/24 History release escitalopram oxalate 5 mg tablet 5 mg PO DAILY #30 tabs 04/13/24 04/25/24 Rx prednisone 10 mg tablet See Rx Instructions PO DAILY #30 04/13/24 04/25/24 Rx tabs insulin degludec 100 unit/mL (3 10 unit (0.1 mL) subcut DAILY #15 04/21/24 04/25/24 Rx mL) subcutaneous pen (Tresiba mL FlexTouch U-100 insulin) pen needle, diabetic 32 gauge x #100 ea 04/21/24 04/25/24 Rx 5/32" (BD Ultra-Fine Elida Pen Needle) glucagon 3 mg/actuation nasal spray 3 mg intranasal ONCE #2 ea 04/25/24 04/25/24 Rx Bedside Commode #1 ea 05/15/24 Rx Wheelchair (Manual) #1 ea 05/18/24 Rx oxycodone 30 mg tablet 30 mg PO Q4H PRN pain #180 tabs 05/18/24 05/24/24 Rx Patient History Medical History 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 Surgical History S/P AAA (abdominal aortic aneurysm) repair History of cholecystectomy History of cataract surgery Family History Mother Diabetes Myocardial infarction Father Stroke Myocardial infarction Sister Alzheimer disease Breast cancer Denies family history of Ovarian cancer Prostate cancer Colorectal cancer Social History Smoking Status: Current every day smoker Tobacco Type: Cigarettes Age Started Using Tobacco: 16; packs per day: 0.5; Cigarettes Per Day: 1 pack lasts 2 days; Second Hand Exposure: No; Do You Dip or Chew Tobacco: No; Hx Alcohol Use: No Hx Substance Use: No Preferred Language: Ecuadorean Communication Ability: Effective Visual Impairment: Limited Hearing Ability: Normal Buffing Machine Operator Semiautomatic Required: No Beliefs That Will Affect Care: None marital status: Single Current Living Situation: Alone Current Living Situation Comment: friend lives upstairs current occupational status: retired current occupation: used to [employer] and worked in a warehouse as well Feels Safe at Home: Yes Childhood Exposure to Second-Hand Smoke: Yes Diet: regular Dental Care, Regularly: Yes Physical Activity Frequency: Does not Exercise Seatbelt Use: always Sunscreen Use: No Assistive Devices: Walker and Wheelchair Review of Systems Review of Systems: All systems reviewed & are unremarkable except as noted in Subjective Physical Exam Constitutional: + ill appearing, + cachectic, + frail ap pearing and cooperative Eyes: PERRL, conjunctivae normal, anicteric sclerae (+glasses) ENMT: dentition fair MM without thrush Neck: trachea midline, no thyromegaly (no gross adenopathy) Respiratory: normal respiratory effort, lungs clear to auscultation (mildly diminished overalll) Cardiovascular: RRR, no murmur, no edema Gastrointestinal (Abdomen): scaphoid, BS+ Musculoskeletal: gen weakness, BUE strength equal bilaterally Skin: pale, warm Neurologic: AAOx3 Results & Data Vital Signs (Past 12 Hours) Vital Signs Temp Pulse Resp BP BP Pulse Ox O2 Del Method 05/24/24 20:57 36.7 C 97 H 16 97/55 L 92 Room Air 05/24/24 16:50 37.1 C 96 H 14 109/60 97 Room Air Laboratory Results 05/24/24 05/24/24 05/24/24 Range/Units 20:56 16:48 14:15 WBC (4.8-10.8) K/ul RBC (4.70-6.10) M/uL Hgb (14.0-18.0) g/dl Hct (42.0-52.0) % MCV (80.0-100.0) fL MCH (25.0-34.0) pg MCHC (32.0-36.0) g/dL RDW Std Deviation (36.4-46.3) fL RDW Coeff of Ct (11.5-14.5) % Plt Count (130-400) K/uL MPV (9.4-12.4) fL Immature Gran % (Auto) % Neut % (Auto) % Lymph % (Auto) % Doddridge % (Auto) % Eos % (Auto) % Baso % (Auto) % Neut # (Auto) (1.40-6.50) K/uL Lymph # (Auto) (1.20-3.40) K/uL Doddridge # (Auto) (0.11-0.59) K/uL Eos # (Auto) (0.00-0.50) K/uL Baso # (Auto) (0.00-0.20) K/uL Immature Gran # (Auto) (0.01-0.20) K/uL RBC Morphology Sodium (136-145) mmol/L Potassium (3.5-5.1) mmol/L Chloride (98-107) mmol/L Carbon Dioxide (21-32) mmol/L Anion Gap (3-11) BUN (6-23) mg/dl Creatinine (0.6-1.4) mg/dl Est Cr Clr Drug Dosing ml/min Est GFR ( Amer) ml/min Est GFR (Non-Af Amer) ml/min BUN/Creatinine Ratio (10-20) Glucose (70-99(Fasting)) mg/dl POC Glucose 107 H 104 H (70-99) mg/dl Calcium (8.6-10.3) mg/dl Iron 31 L (35-175) mcg/dl TIBC 172 L (250-450) mcg/dl Unsaturated IBC 141 L (155-355) mcg/dl Transferrin % Sat 18 L (20-50) % Ferritin 2359.0 H (8-388) ng/ml Total Bilirubin (0.2-1.0) mg/dl AST (13-39) U/L ALT (7-52) U/L Alkaline Phosphatase (34-104) U/L Lactate Dehydrogenase 291 H (86-244) U/L Total Protein (6.0-8.3) gm/dl Albumin (3.4-5.0) gm/dl Globulin (2.5-4.0) gm/dl Albumin/Globulin Ratio (0.9-2) Lipase (11-82) U/L Vitamin B12 773 (180-914) pg/ml Folate 15.28 (>5.38) ng/ml Urine Color Urine Appearance (Clear) Urine pH (4.5-7.5) Ur Specific Toone (1.000-1.030) Urine Protein (Negative) Urine Glucose (UA) (Negative) Urine Ketones (Negative) Urine Blood (Negative) Urine Nitrite (Negative) Urine Bilirubin (Negative) Urine Urobilinogen (Negative) Ur Leukocyte Esterase (Negative) Urine WBC (Auto) (0-5) /hpf Urine RBC (Auto) (0-2) /hpf U Hyaline Cast (Auto) (0-2) /lpf U Epithel Cells (Auto) (0-2) /hpf Urine Bacteria (Auto) (None Seen) Calcium Oxalate Crystal (None Prsent) 05/24/24 05/24/24 05/24/24 Range/Units 11:53 02:39 02:38 WBC 4.01 L (4.8-10.8) K/ul RBC 3.14 L (4.70-6.10) M/uL Hgb 9.6 L (14.0-18.0) g/dl Hct 29.9 L (42.0-52.0) % MCV 95.2 (80.0-100.0) fL MCH 30.6 (25.0-34.0) pg MCHC 32.1 (32.0-36.0) g/dL RDW Std Deviation 59.7 H (36.4-46.3) fL RDW Coeff of Ct 17.2 H (11.5-14.5) % Plt Count 73 L (130-400) K/uL MPV 9.6 (9.4-12.4) fL Immature Gran % (Auto) 0.7 % Neut % (Auto) 44.0 % Lymph % (Auto) 48.9 % Doddridge % (Auto) 5.7 % Eos % (Auto) 0.5 % Baso % (Auto) 0.2 % Neut # (Auto) 1.76 (1.40-6.50) K/uL Lymph # (Auto) 1.96 (1.20-3.40) K/uL Doddridge # (Auto) 0.23 (0.11-0.59) K/uL Eos # (Auto) 0.02 (0.00-0.50) K/uL Baso # (Auto) 0.01 (0.00-0.20) K/uL Immature Gran # (Auto) 0.03 (0.01-0.20) K/uL RBC Morphology Unremarkable Sodium 132 L (136-145) mmol/L Potassium 4.0 (3.5-5.1) mmol/L Chloride 96 L (98-107) mmol/L Carbon Dioxide 29 (21-32) mmol/L Anion Gap 7 (3-11) BUN 21 (6-23) mg/dl Creatinine 0.95 (0.6-1.4) mg/dl Est Cr Clr Drug Dosing 58.7 ml/min Est GFR ( Amer) 86.7 ml/min Est GFR (Non-Af Amer) 74.8 ml/min BUN/Creatinine Ratio 22.1 H (10-20) Glucose 103 H (70-99(Fasting)) mg/dl POC Glucose 105 H (70-99) mg/dl Calcium 8.7 (8.6-10.3) mg/dl Iron (35-175) mcg/dl TIBC (250-450) mcg/dl Unsaturated IBC (155-355) mcg/dl Transferrin % Sat (20-50) % Ferritin (8-388) ng/ml Total Bilirubin 1.9 H (0.2-1.0) mg/dl AST 27 (13-39) U/L ALT 14 (7-52) U/L Alkaline Phosphatase 137 H (34-104) U/L Lactate Dehydrogenase (86-244) U/L Total Protein 4.9 L (6.0-8.3) gm/dl Albumin 3.1 L (3.4-5.0) gm/dl Globulin 1.8 L (2.5-4.0) gm/dl Albumin/Globulin Ratio 1.7 (0.9-2) Lipase 7 L (11-82) U/L Vitamin B12 (180-914) pg/ml Folate (>5.38) ng/ml Urine Color Dark Yellow Urine Appearance Cloudy A (Clear) Urine pH 5.5 (4.5-7.5) Ur Specific Toone 1.018 (1.000-1.030) Urine Protein 2+ H (Negative) Urine Glucose (UA) Trace H (Negative) Urine Ketones Trace H (Negative) Urine Blood 3+ H (Negative) Urine Nitrite Negative (Negative) Urine Bilirubin 1+ H (Negative) Urine Urobilinogen Negative (Negative) Ur Leukocyte Esterase 1+ H (Negative) Urine WBC (Auto) 6-10 H (0-5) /hpf Urine RBC (Auto) >20 H (0-2) /hpf U Hyaline Cast (Auto) 11-20 H (0-2) /lpf U Epithel Cells (Auto) 3-5 H (0-2) /hpf Urine Bacteria (Auto) None Seen (None Seen) Calcium Oxalate Crystal Present A (None Prsent) Diagnostic Findings Abdomen/Pelvis CT 05/24/24 02:29 Exam(s): CT ABDOMEN + PELVIS Without Contrast EXAM: CT Abdomen and Pelvis Without Intravenous Contrast CLINICAL HISTORY: Suprapubic Pain TECHNIQUE: Axial computed tomography images of the abdomen and pelvis without intravenous contrast. CTDI is 12.14 mGy and DLP is 618.01 mGy-cm. Automated exposure control was utilized for the study. A dose lowering technique was utilized adhering to the principles of ALARA. COMPARISON: CT abdomen and pelvis 02/06/2016 FINDINGS: Lung bases: Unremarkable. No mass. No consolidation. ABDOMEN: Liver: Unremarkable. Gallbladder and bile ducts: Cholecystectomy. No ductal dilation. Pancreas: Unremarkable. No ductal dilation. Spleen: Marked splenomegaly. There are wedge-shaped hypodensities in the inferior aspect of the spleen concerning for splenic infarct. Adrenals: A stable 4.3 cm mass of the left adrenal gland is present. Kidneys and ureters: Unremarkable. No obstructing stones. No hydronephrosis. Stomach and bowel: Unremarkable. No obstruction. No mucosal thickening. PELVIS: Appendix: No findings to suggest acute appendicitis. Bladder: A Leavitt catheter is present. There is thickening of the bladder wall concerning for cystitis. No stones. Reproductive: Enlarged prostate gland. ABDOMEN and PELVIS: Intraperitoneal space: Nonspecific moderate free fluid in the pelvis. No free air. Bones/joints: There are degenerative changes of the spine. No acute fracture. No dislocation. Soft tissues: Unremarkable. Vasculature: Severe atherosclerosis. A 3 cm infrarenal aortic aneurysm is present. Mild atherosclerosis. Lymph nodes: Additional significant periaortic lymphadenopathy measures up to 2.3 cm in short axis. IMPRESSION: 1. There is thickening of the bladder wall concerning for cystitis. 2. Marked splenomegaly. There are wedge-shaped hypodensities in the inferior aspect of the spleen concerning for splenic infarcts. 3. Additional significant periaortic lymphadenopathy measures up to 2.3 cm in short axis. Given these findings, this most likely represents lymphoma. 4. A 3 cm infrarenal aortic aneurysm is present. 5. Enlarged prostate gland. 6. Nonspecific moderate free fluid in the pelvis. 7. A stable 4.3 cm mass of the left adrenal gland is present. Given the stability, no follow-up is needed. Electronically signed by: Millie Huitron MD 05/24/24 03:29 AM PG Care Time/CCT Total # of Minutes Spent Total Time Spent with Patient: Total time spent is greater than 50% in coordination of care (as documented) at patient's floor/unit and/or counseling patient: I spent 90 minutes overall addressing this case: 20 min in medical data review/discussion with referring provider(s) and/or preparation for the visit 15 min in direct interaction with the patient/exam 35 min in Advance Care Planning/Goals of Care discussions as detailed above in note (must be >16min) 10 min in subsequent review and synthesis of assessment and plan 10 min communicating with other providers regarding the patient's case: primary team Advanced Care Planning 31193 Advanced Care Planning 30 [place] [address] IN/OBS CONSULT LVL 4,60M (25 - SIGNIFICANT, SEPARATELY IDENTIFIABLE ) Patient Type New Medical Decision Making High Complexity Diagnoses Suprapubic pain R10.2 Weakness generalized R53.1 Cancer related pain G89.3 Advanced care planning/counseling discussion Z71.89 Palliative care by specialist Z51.5 Additional Codes Advanced Care Planning - 93302 Advanced Care Planning 30 Min: 72487 Advanced Care Planning 30 Min ([id number])
--- NOTE | 2024-05-25 10:41 | Hospitalist Progress Note ---
Date of Service May 25, 2024 Assessment & Plan (1) Weakness: Plan: 79yo male with CLL presenting with generalized weakness, increasing difficulty performing his ADLs. Currently lives in a home with his friend living upstairs. - Generalized weakness likely secondary to progression of CLL and severe malnutrition. Possible component of dehydration as well. - Maintain fall precautions - Started Ferrous sulfate given iron deficiency - Pancytopenia likely secondary to severe splenomegaly - PT/OT recommending inpatient rehab at discharge - Palliative care consulted > Patient is unsure about wanting more treatment > His age, growing frailty and declining performance status may be indicators that cancer Rx is no longer going to offer a bed bug exterminator highly effective benefit > Plan to reconvene after discussion with heme/onc - Heme/onc consulted > Based on severe splenomegaly, patient would definitely benefit from treatment for CLL > Recommend close follow-up with prep room supervisor at [facility] to discuss further options > If he decides not to receive further systemic therapy, consider supportive/palliative care at that time (2) Maria catheter in place: Plan: Patient with pain at the Marai site. Urine is present in bag - Lidocaine jelly ordered for penis to be used as needed for discomfort - Urine culture pending > Continue Ceftriaxone until sensitivities result - Voiding trial 05/25 Plan Started ferrous sulfate Ordered voiding trial Discussed case with heme/onc Chronic Medical Conditions: CLL: patient not currently undergoing therapy. He is pancytopenic, chronically ill and cachectic in appearance -Continue Allopurinol -Continue oxycodone PRN pain -Consider Palliative Care consultation Hypothyroidism: chronic. TSH was normal on 02/18/24 at 1.34 -Continue Synthroid GERD: chronic. stable -Continue Omeprazole Ppx - Lovenox 30. Monitor platelets Code - Full per discussion of patient Admission and Anticipated Discharge Date Admission Date: May 24, 2024 Subjective Patient seen and evaluated at bedside. He reports feeling "overall not good." He states that he did not sleep well, appetite is poor, and feels generally weak. He notes that he had a discussion with palliative care yesterday, but is still waiting to meet with heme/onc before deciding how he would like to proceed. He reports that his Maria catheter is irritating him. We discussed a voiding trial, and he is agreeable. He denies any other focal complaints at this time. Physical Exam Physical Exam: General: No acute distress, nondiaphoretic. Chronically ill appearing, cachectic with bitemporal wasting. Skin: Warm, dry, no rash noted. 2+ pitting edema in lower extremities bilaterally. Cardiac: Regular rate and rhythm without murmurs gallops or rubs. Pulm: Clear to auscultation bilaterally without wheezes, rales or rhonchi. No respiratory distress. 96% on room air. Abdominal: Soft, nontender, nondistended. Bowel sounds present. Severe splenomegaly noted. Neuro: A&O x3. No focal neurological deficits. Results & Data Results & Data Vital Signs (Past 12 Hours) Vital Signs Temp Pulse Resp BP Pulse Ox O2 Del Method 05/25/24 07:32 97.3 F L 74 18 87/46 L 95 Room Air 05/24/24 23:03 Room Air Laboratory Results Reviewed iron studies PG Care Time/CCT Total # of Minutes Spent Total Time Spent with Patient: Total time spent is greater than 50% in coordination of care (as documented) at patient's floor/unit and/or counseling patient: Coding Level of Care Code 82068 SUB INP/OBS CARE 3/50MIN Diagnoses Weakness R53.[address] Z97.8
[2024-05-25 19:47] VITALS: RESP 16
[2024-05-26] MEDS: FERROUS SULFATE 325 MG TAB PO SCH (09:20)
--- NOTE | 2024-05-26 11:58 | Hospitalist Progress Note ---
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 Currently lives in a home with his friend living upstairs. - Generalized weakness likely secondary to progression of CLL and severe malnutrition. Possible component of dehydration as well. - Maintain fall precautions - Started Ferrous sulfate given iron deficiency - Pancytopenia likely secondary to severe splenomegaly - PT/OT recommending inpatient rehab at discharge. Patient initially agreeable, has since changed his mind multiple times. Will ask case management to discuss rehab options with the patient again. Continue to encourage rehab. > Referral made to [facility], however, not convinced that patient could participate in 3 hours of therapy daily - Palliative care consulted > Patient is unsure about wanting more treatment > His age, growing frailty and declining performance status may be indicators that cancer Rx is no longer going to offer a terminal supervisor highly effective benefit > Reconvened 05/26 after heme/onc discussion, and patient now agreeable to rehab as his goal is to be strong enough for further CLL treatments - Heme/onc consulted > Based on severe splenomegaly, patient would definitely benefit from treatment for CLL > Recommend close follow-up with environmental engineering aide at [facility] to discuss further options > If he decides not to receive further systemic therapy, consider supportive/palliative care at that time - Patient with intermittent disorientation 05/26. Implement delirium prevention strategies. Continue to monitor mental status. > B12 WNL > B1 level not checked, but given his severe malnutrition, will replete empirically with B1 500 mg IV Q8H x 8 doses, then recommend maintenance dosing > TSH ordered with AM labs - Patient became agitated, requiring both behavioral health liaison and security to come de-escalate/escort back to room. Patient does not have capacity to make decisions at this time. His friend/roommate at home, Javon, also serves as his caregiver. Based on my observation, Javon also does not have capacity and would not serve as a caregiver from a medical perspective. I do not feel that the patient is safe to return home without 15/03 care. (2) Maria catheter in place: Plan: Patient with pain at the Maria site on admission. - Lidocaine jelly ordered for penis to be used as needed for discomfort - Urine culture revealed no growth, Ceftriaxone discontinued at that time 10/4/24 - Maria catheter removed 05/25 - Passed voiding trial, urinating independently - Bladder scan PRN Plan Discontinued ceftriaxone Ordered nicotine patch, Zyprexa, B1 Discussed discharge planning with case management Contacted liaison and security Contacted liaison and security Attempted to call family, Janki, however no answer so voicemail was left Chronic Medical Conditions: CLL: patient not currently undergoing therapy. He is pancytopenic, chronically ill and cachectic in appearance -Continue Allopurinol -Continue oxycodone PRN pain -Consider Palliative Care consultation Hypothyroidism: chronic. TSH was normal on 02/18/24 at 1.34 -Continue Synthroid GERD: chronic. stable -Continue Omeprazole Ppx - Lovenox 30. Monitor platelets Code - Full per discussion of patient Admission and Anticipated Discharge Date Admission Date: May 24, 2024 Subjective Patient seen and evaluated at bedside. He reports being anxious for discharge. He was initially agreeable to rehab, however when a guest experience representative from [facility] talked with him this morning, he stated that he wanted to go home. However, when we discussed rehab he was agreeable again. RN reports that he was agitated and confused this morning, refused his AM meds, and urinated in the trash can. Patient reports that he was "annoyed because he wants a cigarette." He does not recall being disoriented this morning. I offered him a nicotine patch, which he was agreeable to. He denies any problems with urination since his Maria catheter was removed yesterday. He reports that he is generally weak, then a few minutes later states that he is strong enough to go home without rehab. He states that he has been walking the halls independently, however his RN reports that he cannot stand up from bed independently, let alone independent ambulation. No additional complaints or concerns at this time. Updated by RN in the afternoon that patient became agitated, left his hospital room, and refused to go back. I attempted to de-escalate the situation, however patient continued to refuse and stated he wanted to leave the hospital. I did not feel that he has capacity to sign out AMA, so behavioral health liaison was contacted. She also attempted to de-escalate the situation, however security had to be called to escort the patient back to his room. Once back in his room, he was cooperative again and lied down on his hospital bed without issue. Physical Exam Physical Exam: General: No acute distress, nondiaphoretic. Chronically ill appearing, cachectic with bitemporal wasting. Skin: Warm, dry, no rash noted. 2+ pitting edema in lower extremities bilaterally. Cardiac: Regular rate and rhythm without murmurs gallops or rubs. Pulm: Clear to auscultation bilaterally without wheezes, rales or rhonchi. No respiratory distress. 96% on room air. Abdominal: Soft, nontender, nondistended. Bowel sounds present. Severe splenomegaly noted. Neuro: A&O x2 (not place). No focal neurological deficits. Results & Data Results & Data Vital Signs (Past 12 Hours) Vital Signs Temp Pulse Resp BP Pulse Ox O2 Del Method 05/26/24 08:00 Room Air 05/26/24 07:16 97.9 F 75 16 93/50 L 96 Room Air Laboratory Results Reviewed urine culture PG Care Time/CCT Total # of Minutes Spent Total Time Spent with Patient: Total time spent is greater than 50% in coordination of care (as documented) at patient's floor/unit and/or counseling patient: Coding Level of Care Code 68136 SUB INP/OBS CARE 3/50MIN Diagnoses Weakness R53.[address] Z97.8
[2024-05-26] MEDS ORDERED: OLANZapine 10 MG/2.1 ML SDV IM PRN (13:39)
[2024-05-26] MEDS: NICOTINE 14 MG/24 HR PATCH TD SCH (13:56)
[2024-05-26] MEDS: THIAMINE HCL 500 MG in SODIUM CHLORIDE 0.9% 50 ML IV SCH (19:45)
--- NOTE | 2024-05-26 23:01 | Palliative Family Discussion ---
Date of Service May 26, 2024 Patient Directed Conference Time of Meetinpm-315pm Participants: Gillian Alcantara DNP Patient participation: yes Patient Support System: yes, close friend and roommate, Javon Other Healthcare Provider Participation: None Meeting Location: bedside Advanced Directive available:no An ACP meeting was held for BAKARI BONDS. This meeting was necessary for determining the appropriate course of treatment. Topics of Discussion Topics of Discussion: 1. Progressive illness complicated by urinary retention which has improved. 2. Second opinion onc eval appreciated: reviewed reccs with pt in details. U ltimately if the goal is to try and resume chemo then he needs to improve PS and not require assistance with ADLs and care. His nutrition needs to improve along with strength/conditioning. The best way for this will be rehab. He has equivocated on this, and has been consistently inconsistent. However when pressed today with Javon's presence, he indicates wanting to try more chemo which may well be feasible with improved PS and may help control his disease. 3. Bakari agrees to rehab at SNF with goal to returning for OP onc appt in a few weeks and re eval for possible chemo. He is firm that if no further chemo can be offered he would desire a comfort focus. Other Content of Meetin. Opportunity given for participants to speak and ask questions. 2. Participants were assured of attention to patient comfort. 3. Reassurance provided. 4. Support was provided for informed, good-cecil decisions. 5. Updated teams/nursing. TS 45min all of this was face to face ACP Thank you for allowing us to participate in the ongoing care of this patient. Please page with any additional concerns. Monroe Alcantara DNP Director, Palliative Medicine
[2024-05-27 06:26] LABS: Hematocrit (blood only) 27.8 % (42.0-52.0); Hemoglobin 8.9 g/dl (14.0-18.0); Mean Corpuscular Hemoglobin 30.8 pg (25.0-34.0); Mean Corpuscular Volume 96.2 fL (80.0-100.0); Mean Platelet Volume 9.7 fL (9.4-12.4); Platelet Count 75 K/uL (130-400); RDW Coefficient of Variation 16.6 % (11.5-14.5); RDW Standard Deviation 58.4 fL (36.4-46.3); Red Blood Count 2.89 M/uL (4.70-6.10); White Blood Count 4.04 K/ul (4.8-10.8)
[2024-05-27 06:39] LABS: BUN Creatinine Ratio 17.9 (10-20); Calcium 8.4 mg/dl (8.6-10.3); Creatinine Clr Calc Pharmacy 46.2 ml/min; Potassium 3.8 mmol/L (3.5-5.1)
[2024-05-27 06:55] LABS: Thyroid Stimulating Hormone 2.48 uIu/ml (0.300-4.500)
[2024-05-27] MEDS ORDERED: POLYETHYLENE (MIRALAX) 17 GM PACK PO PRN (13:29)
[2024-05-27] MEDS ORDERED: SENNA 8.6 MG TAB PO PRN (13:29)
--- NOTE | 2024-05-27 13:51 | Hospitalist Progress Note ---
Date of Service May 27, 2024 Assessment & Plan (1) Weakness: Plan: 79yo male with CLL presenting with generalized weakness, increasing difficulty performing his ADLs. Currently lives in a home with his friend living upstairs. - Generalized weakness likely secondary to progression of CLL and severe malnutrition. Possible component of dehydration as well. - Palliative care consulted > Patient is unsure about wanting more treatment > His age, growing frailty and declining performance status may be indicators that cancer Rx is no longer going to offer a penitentiary highly effective benefit > Reconvened 05/26 after heme/onc discussion, and patient now agreeable to rehab as his goal is to be strong enough for further CLL treatments - Heme/onc consulted > Based on severe splenomegaly, patient would definitely benefit from treatment for CLL > Recommend close follow-up with lamp shades supervisor at [facility] to discuss further options > If he decides not to receive further systemic therapy, consider supportive/palliative care at that time Intermittent disorientation consistent with delirium, poor insight and judgment, cognitive impairment -B12 and TSH were normal -empirically replacing thiamine 500 IV q8h x 9 doses then oral replacement -has dysgeusia and dermatitis - empirically replace niacin, zinc -petichial hemorrhage may be related to CLL but will also replace vitamin C -multivitamin, protein supplement Depressed mood, low appetite -low dose mirtazapine (2) Maria catheter in place: Plan: Patient with pain at the Maria site on admission. - Lidocaine jelly ordered for penis to be used as needed for discomfort - Urine culture revealed no growth, Ceftriaxone discontinued at that time 05/26/24 - Maria catheter removed 05/25 - Passed voiding trial, urinating independently - Bladder scan PRN Plan Chronic Medical Conditions: CLL: patient not currently undergoing therapy. He is pancytopenic, chronically ill and cachectic in appearance -Continue Allopurinol -Continue oxycodone PRN pain - 30 mg po chronically for back pain states he's been on this many years Hypothyroidism: chronic. TSH was normal on 02/18/24 at 1.34 -Continue Synthroid GERD: chronic. stable -Continue Omeprazole Ppx - Lovenox 30. Monitor platelets Code - Full per discussion of patient not safe for discharge to independent living at this time, currently willing for rehab placement He would like to do trial of rehab and pursue chemotherapy if he gets strong enough Admission and Anticipated Discharge Date Admission Date: May 24, 2024 Subjective feeling very sad about his situation sitting by window seems like appetite might be improved. says food did not taste good and poor appetite. no abdominal pain or nausea more coherent today than described yesterday Physical Exam 2 Physical Exam: PHYSICAL EXAMINATION Last 24h vital signs reviewed, see documentation in flowsheet General: very thin cachectic appearing man sitting by the window HEENT: Normocephalic, atraumatic, pupils round and equal, sclerae anicteric, no conjunctival injection, moist mucus membranes, bitemporal wasting Lungs: Normal respiratory effort. Clear to auscultation bilaterally. No RRW Heart: Regular rate and rhythm, no murmurs. No JVD Abdomen: Soft, nontender, nondistended. Bowel sounds present. Extremities: Warm, dry, well-perfused. 2+ lower extremity edema - feet and ankles. skin: He has livedo of both lower extremities below mid byrne and his feet with petechiae Neuro: Alert and oriented x place and basic situation, face symmetric, moves 4 extremities well Psych: sad affect and depressed mood Results & Data Results & Data Vital Signs (Past 12 Hours) Vital Signs Temp Pulse Resp BP Pulse Ox O2 Del Method 05/27/24 08:28 36.7 C 85 16 84/44 L 95 Room Air 05/27/24 08:00 Room Air Laboratory Results 05/27/24 05:45 05/27/24 05:45 PG Care Time/CCT Total # of Minutes Spent Total Time Spent with Patient: Total time spent is greater than 50% in coordination of care (as documented) at patient's floor/unit and/or counseling patient: Coding Level of Care Code 13988 SUB INP/OBS CARE 2/35MIN Diagnoses Weakness R53.[address] Z97[address]8
[2024-05-27] MEDS: ASCORBIC ACID 500 MG TAB PO SCH (14:13)
[2024-05-27] MEDS: NIACIN 500 MG TAB PO SCH (17:43)
[2024-05-27] MEDS: MIRTAZAPINE TAB 15 MG TAB PO SCH (20:43)
[2024-05-28 07:31] VITALS: TEMP 97.7; O2SAT 97
[2024-05-28] MEDS: ZINC SULFATE 220 MG CAPSULE PO SCH (09:17)
[2024-05-28] MEDS: CEROVITE ADV FORMULA TAB PO SCH (09:17)
--- NOTE | 2024-05-28 13:39 | Discharge Summary ---
Discharge Summary Date of Service May 28, 2024 Principal Dx & Hospital Course #1 = Principal Diagnosis (1) Weakness: 79yo male with CLL presenting with generalized weakness, increasing difficulty performing his ADLs. Currently lives in a home with his friend living upstairs. - Generalized weakness likely secondary to progression of CLL and severe malnutrition. Possible component of dehydration as well. - Palliative care consulted > Patient is unsure about wanting more treatment for his CLL > His age, growing frailty and declining performance status may be indicators that cancer Rx is no longer going to offer a benefit > Reconvened 05/26 after heme/onc discussion, he wants to try rehab as his goal is to be strong enough for further CLL treatments - Heme/onc consulted > Based on severe splenomegaly, patient would definitely benefit from treatment for CLL > Recommend close follow-up with director life insurance at [facility] to discuss further options > If he decides not to receive further systemic therapy, consider supportive/palliative care at that time Intermittent disorientation consistent with delirium, poor insight and judgment, cognitive impairment I am concerned for nutritional deficiencies as he has some compatible symptoms - dysgeusia, dermatitis, LE petechiae (though thrombocytopenic), cognitive dysfunction -BID protein supplement. started eating all of his hospital meals eventually -TSH was normal on his levothyroxine -empirically replaced thiamine 500 IV q8h for total of 3000 mg in hospital, started oral replacement 200 mg bid pending B1 level -continue his usual B12 replacement for existing deficiency, level was normal -has dysgeusia and dermatitis - empirically replace niacin, zinc -petichial hemorrhage may be related to CLL but will also replace vitamin C -possible iron deficiency, ferritin elevated c/w inflammatory block. serum iron mildly low and transferrin sat mildly low at 18% so started QOD ferrous sulfate -multivitamin Depressed mood, low appetite. appears to have previously been on low-dose escitalopram - started low dose mirtazapine, may increase to 15 mg HS if tolerating (2) Leavitt catheter in place: Leavitt was placed in ED? UA was abnormal, initial concern for UTI - Urine culture revealed no growth, Ceftriaxone discontinued at that time 05/26/24 - Leavitt catheter removed 05/25 - Passed voiding trial, urinating independently since then - Bladder scan PRN Plan Chronic Medical Conditions: CLL: patient not currently undergoing therapy. He is pancytopenic, chronically ill and cachectic in appearance -Continue Allopurinol -Continue oxycodone PRN pain - 30 mg po chronically for back pain states he's been on this many years Hypothyroidism: chronic. TSH was normal on 02/18/24 at 1.34 -Continue Synthroid GERD: chronic. stable -Continue Omeprazole Needs bowel regimen for constipation Code - Full per discussion of patient He would like to do trial of rehab and pursue chemotherapy if he gets strong enough Notes For Next Care Provider vitamins started 05/27 can decrease to maintenance dosing after replacement B1 level pending. treated empirically with V thiamine Medication Changes From Visit see above started mirtazapine, thiamine, other vitamins Admission HPI Per Admitting Provider Bakari Fischer is an 79yo male with history of thyroid cancer, CLL, CAD and DM presenting with generalized weakness. Patient was admitted to [facility] for generalized weakness from 05/06 - 05/08 and was subsequently discharged with home PT. He reports ongoing weakness. Was seen in the ER yesterday 05/23/24 with report of inability to urinate. He had a Leavitt catheter placed and was subsequently discharged home. Patient returns today with complaint of pain at the Leavitt as well as suprapubic discomfort. He again endorses ongoing weakness and difficulty completing his ADLs. IN the ER he is afebrile, HD stable ER Course: NSS x 500mL Discharge Exam PHYSICAL EXAMINATION Last 24h vital signs reviewed, see documentation in flowsheet General: very thin cachectic appearing standing up with clinical nursing professor urinating HEENT: Normocephalic, atraumatic, pupils round and equal, sclerae anicteric, no conjunctival injection, moist mucus membranes, bitemporal wasting Lungs: Normal respiratory effort. Clear to auscultation bilaterally. No RRW Heart: Regular rate and rhythm, no murmurs. No JVD Abdomen: Soft, nontender, nondistended. Bowel sounds present. Extremities: Warm, dry, well-perfused. 2+ lower extremity edema - feet and ankles. skin: mid byrne and his feet with petechiae. had cool LE skin and livedo pattern yesterday which resolved Neuro: Alert and oriented x place and basic situation, poor insight/judgment, face symmetric, moves 4 extremities well Psych: normal affect and depressed mood Discharge Plan Discharge Items Patient Disposition: Transfer Inpatient Rehab Fac Reason For Visit: WEAKNESS Discharge Diagnosis: CLL, severe protein calorie malnutrition, delirium Activity: Per Instructions section Weightbearing: Full weightbearing Non-emergency contact: Primary Care Provider and Oncologist Call non-emergency contact if: you have any medication questions and your symptoms worsen Follow-up/Referrals: Dione Steve MD [Primary Care Provider] - Diet: Regular Addtl Attending Provider Instructions: PT and OT evaluate and treat bid protein supplement - BOOST, etc empirically replacing thiamine, zinc, niacin - replacements just started 05/28 thiamine / B1 level pending. already got 3000 mg worth of IV thiamine while in hospital at risk for pressure ulcers due to sarcopenia and malnutrition follow up with his oncologist in [place] for CLL he had urinary retention early in admission but has been voiding spontaneously without leavitt several days Pending Studies at Discharge: Yes (b1 level) Stand-Alone Forms: My [facility] Skilled Items Patient informed of condition?: Yes DNR: No Discharge Level of Care: Acute rehab Communicable Disease: No Discharge Prognosis: Improving Lines: None Urinary Catheter: No Medications and DC Order Prescriptions: New thiamine HCl (vitamin B1) 100 mg tablet 200 mg PO BID Qty: 1 0RF nicotine 7 mg/24 hr Patch 24 Hour 1 patch transdermal QAM Qty: 0 0RF polyethylene glycol 3350 [Miralax] 17 gram Powder In Packet 17 g PO BID PRNQty: 0 0RF sennosides [Senokot] 8.6 mg Tablet 17.2 mg PO DAILY PRNQty: 0 0RF zinc sulfate [Orazinc] 50 mg zinc (220 mg) Capsule 220 mg PO QAM Qty: 0 0RF mirtazapine 15 mg Tablet 7.5 mg PO HS Qty: 0 0RF ferrous sulfate 325 mg (65 mg iron) Tablet,Delayed Release (Dr/Ec) 325 mg PO Q48H Qty: 0 0RF Cerovite Senior 0.4 mg-300 mcg- 250 mcg Tablet 1 tab PO QAM Qty: 0 0RF ascorbic acid (vitamin C) [Vitamin C] 500 mg Tablet 1,000 mg PO QAM Qty: 0 0RF niacin 500 mg Tablet 500 mg PO QDD Qty: 0 0RF Continued (DME) Dexcom G7 Radiology Transcriptionist Misc See Rx Instructions .Route Qty: 1 0RF Rx Instructions: use to monitor Blood glucose continuously levothyroxine [Synthroid] 112 mcg tablet 112 mcg PO HS Qty: 90 1RF Rx Instructions: BRAND NAME MEDICALLY NECESSARY lidocaine [Lidoderm] 5 % adhesive patch,medicated 1 patch topical DAILY PRN (Reason: pain) Qty: 30 0RF Rx Instructions: leave on most painful area for up to 12 hrs fluticasone propionate 50 mcg/actuation spray,suspension 2 spray intranasal DAILY Qty: 1 0RF (DME) pen needle, diabetic [BD Ultra-Fine Elida Pen Needle] 32 gauge x 5/32" needle See Rx Instructions .ROUTE .MEDSUPPLY Qty: 100 3RF Rx Instructions: use as directed to inject once daily (DME) Bedside Commode Misc See Rx Instructions .Route Qty: 1 0RF Rx Instructions: As directed C91.90 (DME) Wheelchair (Manual) Device See Rx Instructions .Route Qty: 1 0RF Rx Instructions: As directed C78.6 oxycodone 30 mg tablet 30 mg PO Q4H PRN (Reason: pain) Qty: 180 0RF cyanocobalamin (vitamin B-12) 500 mcg tablet,disintegrating 1,000 mcg SL DAILY (DME) lancets [Prodigy Lancets] 28 gauge misc See Dose Instructions .ROUTE .MEDSUPPLY Qty: 25 Rx Instructions: Test 3x daily folic acid 1 mg tablet 1 mg PO DAILY Patient Comments: CONFIRMED W/ PT AND ON PH DC SUMMARY 04/07 omeprazole 20 mg capsule,delayed release(DR/EC) 20 mg PO DAILY Patient Comments: CONFIRMED W/ PT AND ON PH DC SUMMARY 04/07 allopurinol 100 mg tablet 50 mg PO DAILY Patient Comments: PT TAKES 1/2 TAB DAILY. CONFIRMED ON 04/07 cholecalciferol (vitamin D3) [Vitamin D3] 10 mcg (400 unit) Tablet 10 mcg PO QAM Discontinued Jardiance 10 mg tablet 10 mg PO DAILY Qty: 90 1RF insulin degludec [Tresiba FlexTouch U-100] 100 unit/mL (3 mL) insulin pen 10 unit subcut DAILY Qty: 15 5RF sildenafil [Viagra] 100 mg tablet 100 mg PO DAILY PRN (Reason: Erectile Dysfunction) Qty: 10 adapalene 0.3 % gel 1 applic topical DAILY PRN (Reason: .) betamethasone, augmented 0.05 % ointment 1 applic topical BID PRN (Reason: .) Qty: 1 ketoconazole 2 % cream 1 applic topical BID PRN (Reason: .) Qty: 1 mupirocin 2 % ointment 1 applic topical TID PRN (Reason: .) Qty: 1 nystatin-triamcinolone 100,000-0.1 unit/gram-% ointment 1 applic topical BID PRN (Reason: .) Qty: 1 hydrocortisone valerate 0.2 % cream 1 appln TOP BID PRN (Reason: .) Zeasorb AF 2 % powder 1 appln TOP DAILY PRN (Reason: INGUINAL FOLDS) clonazepam 0.5 mg tablet 0.5 mg PO TID PRN (Reason: anxiety) Qty: 60 0RF igg infu See Rx Instructions IV .COMPLEX Rx Instructions: intravenously monthly; fluconazole 100 mg tablet 100 mg PO DAILY Patient Comments: PRESCRIBED BY PH ONCOLOGIST-CONFIRMED W/ PT ON 04/07 prednisone 10 mg tablet See Rx Instructions PO DAILY Qty: 30 0RF Rx Instructions: 4 tabs for 3 days, then 3 tabs for 3 days, then 2 tabs for 3 days, then 1 tab for 3 days. PO DAILY; escitalopram oxalate 5 mg tablet 5 mg PO DAILY Qty: 30 5RF glucagon 3 mg/actuation spray,non-aerosol 3 mg intranasal ONCE Qty: 2 4RF Rx Instructions: To be used in instances of emergency hypoglycemia. milk thistle 500 mg Capsule 1,000 mg PO QAM triamcinolone acetonide 0.025 % Cream 1 applic TOPICAL DAILY PRN (Reason: .) lutein 20 mg Tablet 20 mg PO QAM sulindac 200 mg tablet 100 mg PO BID PRN Discharge Orders: Discharge Order (Routine); Ordered 05/28/24 Ordered By: Mary Jordan Admission Data Admit Date/Time: 05/24/24 03:40 Attending Provider: Mary Jordan Admit Provider: Radha Garcia Primary Care Provider: Dione Steve Other Providers: Radha Garcia; Gillian Alcantara; Maurilio Santamaria; Elva Hudson; Payal Moore; Yuri Araya; Le Vela; Luis Alberto Saul; Deangelo Asencio; Dhiraj Wood; Dariana Gunn; zCCP,No Attending; [facility] Stay Data Consultations 05/24/24 03:32 ED Decision to Admit Stat 05/24/24 10:19 Consult Palliative Care Routine 05/24/24 13:22 Consult Oncology Routine Diagnostic Imagining Performed 05/24/24 02:29 CT abd pelvis wo con Stat Pending Results Patient Have Any Pending Studies at Discharge: Yes (b1 level) Discharge Instructions Given to Patient (Per Discharging Provider) PT and OT evaluate and treat bid protein supplement - BOOST, etc empirically replacing thiamine, zinc, niacin - replacements just started 05/28 thiamine / B1 level pending. already got 3000 mg worth of IV thiamine while in hospital at risk for pressure ulcers due to sarcopenia and malnutrition follow up with his oncologist in [place] for CLL he had urinary retention early in admission but has been voiding spontaneously without leavitt several days Total Time Total Time Spent Total Time Spent (In Minutes): I personally spent: 40 minutes today on clinical care activities including: reviewing chart notes and vital signs reviewing labs reviewing studies discussion with pharmacy care coordinator examining and counseling the patient writing orders writing prescriptions, discharge instructions documentation Coding Level of Care Code 11387 INP/OBS DISCH >30 MIN Diagnoses Weakness R53.[address] Z97.8
[2024-05-28 13:54] VITALS: BP 84/44; PULSE 84
[2024-05-29] MEDS ORDERED: FERROUS SULFATE 325 MG TAB PO SCH (09:00)
--- NOTE | 2024-05-31 12:22 | Communication Note ---
Date of Service: May 31, 2024 Brief palliative medicine note Contacted by Dr. Presley from [facility], Bakari is doing poorly, aspirating with any p.o. intake that is attempted and overall performance status continues to decline. In addition to this, [facility] was notified yesterday by the defence intelligence analyst that Bakari significant other of 40+ years, Javon, committed suicide. Additional details were not available. Dr. Presley initially called to ask about referring patient in for a consult however does not feel patient will be able to attend an in person appointment. Because he is established from the inpatient admission, I offered to do a telemedicine appointment to discuss goals of care with the transition to primarily focusing on comfort at this junction as it is unlikely he will recover to where further cancer directed therapy can be considered. Dr. Presley is going to speak to patient and then let me know if that additional TeleMed appointment would be necessary. I advised Dr. Presley of my prior conversations with patient where he had made clear that if he was declining or not going to be able to give Tane more cancer directed treatment, that he would want to transition to focus on comfort and quality of life. Thank you for allowing us to participate in the ongoing care of this patient. Please page with any additional concerns. Monroe Alcantara DNP Director, Palliative Medicine
== END 2024-05-28 14:35 | DRG 840 ==
LOC: ED 02:20 → 3E 03:40 → SUATTDRO 03:40 → 3E 04:15